=== PATIENT | male | born 1935 | race Caucasian/White ===

== ENCOUNTER 2020-06-02 13:35 | Emergency (ER) | payer MEDICARE, BC ==
--- NOTE | 2020-06-02 14:24 | EDM.PDOC ---
ED HPI GENERAL MEDICAL PROBLEM - General Chief Complaint: Respiratory Problem Stated Complaint: SINUS INFECTION COMPLAINT Time Seen by Provider: 06/02/20 14:24 - History of Present Illness INITIAL COMMENTS - FREE TEXT/NARRATIVE: 84-year-old male presents the emergency room with sinus complaints. Starting 4 days ago patient has developed intermittent bloody noses. On Sunday he had an episode where he was sneezing quite a bit and he had watery eyes. This seems to have resolved. However the patient still has some intermittent coughing intermittent sneezing and is secondary to stuff draining down the back of his throat. Patient denies any fevers or chills does not have any significant sinus pressure above his eyes or below his eyes. The patient currently is on Eliquis. And he notices most of his congestion is related to bloody noses. The patient takes his Eliquis twice daily as directed. He denies any fevers or chills. Past Medical History HEENT History: Reports: Cataract Cardiovascular History: Reports: Bypass, CAD, High Cholesterol, Hypertension, Pacemaker, Stents Social & Family History - Tobacco Use Tobacco Use Status *Q: Former Tobacco User Used Tobacco, but Quit: Yes Month/Year Tobacco Last Used: ED ROS GENERAL - Review of Systems Review Of Systems: See Below Constitutional: Reports: No Symptoms HEENT: Reports: Nosebleed, Rhinitis, Sinus Problem Respiratory: Reports: Other (General cough or sneeze not associated with fevers probably triggered by postnasal drip) Cardiovascular: Reports: No Symptoms Endocrine: Reports: No Symptoms GI/Abdominal: Reports: No Symptoms : Reports: No Symptoms Musculoskeletal: Reports: No Symptoms Skin: Reports: No Symptoms Neurological: Reports: No Symptoms ED EXAM, GENERAL - Physical Exam Exam: See Below Exam Limited By: No Limitations General Appearance: Alert, No Apparent Distress Ears: Normal External Exam, Normal Canal, Hearing Grossly Normal, Normal TMs Nose: Normal Inspection, Other (Dried blood mostly on the right over the nasal septum minimal blood elsewhere none noted on the left. Sinus palpation is unrevealing no discomfort noted with percussion over the maxillary or frontal sinuses bilaterally) Throat/Mouth: Normal Inspection, Normal Lips, Normal Teeth, Normal Gums, Normal Oropharynx, Normal Voice, No Airway Compromise Head: Atraumatic, Normocephalic. No: Facial Swelling, Facial Tenderness, Sinus Tenderness Neck: Normal Inspection, Supple, Non-Tender, Full Range of Motion. No: Lymphadenopathy (L), Lymphadenopathy (R) Respiratory/Chest: No Respiratory Distress, Lungs Clear, Normal Breath Sounds Cardiovascular: Normal Peripheral Pulses, Regular Rate, Rhythm, No Edema GI/Abdominal: Normal Bowel Sounds, Soft, Non-Tender Back Exam: Normal Inspection. No: CVA Tenderness (L), CVA Tenderness (R) Course - Vital Signs Last Recorded V/S: Last Vital Signs Temp 37.1 C 06/02/20 14:00 Pulse 60 06/02/20 14:00 Resp 18 06/02/20 14:00 BP 119/44 L 06/02/20 14:00 Pulse Ox 92 L 06/02/20 14:00 - Re-Assessments/Exams Free Text/Narrative Re-Assessment/Exam: 06/02/20 14:47 With discussion from the patient I am concerned that maybe he has a little bit of allergic rhinitis and this in combination with extremely dry air is causing some intermittent mild epistaxis aggravated by his Eliquis therapy. At this point I have recommended he start Claritin, or loratadine 10 mg a day. Discussed sinus treatment such as a coolmist humidifier or boiling water or getting into a more humid environment. Discussed acute management for nosebleeds. The patient is willing to try these modalities and will return to the emergency room with any questions or problems based on his sinus exam I do not feel he has an infectious process or is in any need of antibiotics at this point. Departure - Departure Time of Disposition: 14:48 Disposition: Home, Self-Care 01 Clinical Impression: Allergic rhinitis, Epistaxis - Discharge Information Referrals: Ranjith Noland PA-C [Primary Care Provider] - Forms: ED Department Discharge Additional Instructions: Return to the emergency room with any questions problems or worsening symptoms. If the nosebleeds return squeezer knee nose as we discussed and as we demonstrated at first blow all the bloody material and clots out of your nose. And hold then firm pressure, it should be uncomfortable, and to keep this pressure in place for 15 minutes. If this does not alleviate the nosebleeds return to the emergency room. Start loratadine, or Claritin, 10 mg daily. Use a coolmist humidifier or boil water to get some steam to help moisturize the area in your house. Use K-Y jelly under your nose as we did in the emergency room every couple hours while you are awake. Follow-up in the clinic on Sunday for recheck. Sepsis Event Note (ED) - Evaluation Sepsis Screening Result: No Definite Risk - Focused Exam Vital Signs: Vital Signs Temp Pulse Resp BP Pulse Ox 06/02/20 14:00 37.1 C 60 18 119/44 L 92 L
== END 2020-06-02 15:02 | disposition home or self-care (01) ==
LOC: JD.ED 13:35
DX: R04.0 Epistaxis (principal); J30.9 Allergic rhinitis, unspecified; I25.10 Atherosclerotic heart disease of native coronary artery without angina pectoris; I10 Essential (primary) hypertension; Z87.891 Personal history of nicotine dependence; Z95.1 Presence of aortocoronary bypass graft; Z95.5 Presence of coronary angioplasty implant and graft
CPT/HCPCS: 99282; 99283

== ENCOUNTER 2020-09-17 10:36 | Emergency (ER) | payer MEDICARE, BC ==
--- NOTE | 2020-09-17 10:53 | EDM.PDOC ---
ED HPI GENERAL MEDICAL PROBLEM - General Chief Complaint: ENT Problem Stated Complaint: NOSE BLEED SINCE 7AM Time Seen by Provider: 09/17/20 10:48 Source of Information: Reports: Patient History Limitations: Reports: No Limitations - History of Present Illness INITIAL COMMENTS - FREE TEXT/NARRATIVE: 84-year-old male presents to the ED with persistent nosebleed coming from the r ight side of the nares primarily. He states it started about 0700 hrs. shortly after getting up for the day. No known nasal trauma. Of note the patient is on Eliquis and baby aspirin daily. States with direct pressure he can get it to slow down but he could never get it to stop. Otherwise does not feel too bad in terms of being lightheaded or dizzy. Blood is running down his throat and has b een spitting up blood. Onset: Today, Sudden Onset Date: 09/17/20 Onset Time: 07:00 Duration: Hour(s):, Constant Location: Reports: Face (Right nasal hemorrhage) Quality: Reports: Other (Persistent bleeding right naris) Severity: Moderate Improves with: Reports: Other (Direct pressure helps a little bit.) Worsens with: Reports: None Context: Reports: Other (Continuous occurrence this morning.). Denies: Activity, Exercise, Lifting, Sick Contact, Trauma Associated Symptoms: Reports: No Other Symptoms. 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) (Only his prescribed medications.) - Related Data Allergies Allergy/AdvReac Type Severity Reaction Status Date / Time No Known Allergies Allergy Verified 09/17/20 10:42 Home Meds: Home Meds Apixaban [Eliquis] 5 mg PO BID 09/17/20 [History] Furosemide [Lasix] 40 mg PO DAILY 09/17/20 [History] Insulin Aspart [NovoLOG] 0 unit SQ ASDIRECTED PRN 09/17/20 [History] Insulin Degludec [Tresiba] 30 unit SQ DAILY 09/17/20 [History] Losartan [Cozaar] 12.5 mg PO DAILY 09/17/20 [History] Simvastatin 40 mg PO BEDTIME 09/17/20 [History] carvediloL [Carvedilol] 25 mg PO BID 09/17/20 [History] Past Medical History HEENT History: Reports: Cataract Cardiovascular History: Reports: Bypass, CAD, High Cholesterol, Hypertension, Pacemaker, Stents Respiratory History: Reports: COPD Musculoskeletal History: Reports: Back Pain, Chronic (Mild.), Osteoarthritis Social & Family History - Living Situation & Occupation Living situation: Reports: , with Spouse Occupation: Retired ED ROS ENT - Review of Systems Review Of Systems: See Below Constitutional: Reports: Fatigue, Decreased Appetite. Denies: Fever, Chills, Malaise, Weakness, Weight Loss HEENT: Reports: Glasses, Nosebleed (Right sided nosebleed) Respiratory: Reports: Shortness of Breath, Cough. Denies: Wheezing, Pleuritic Chest Pain, Sputum, Hemoptysis Cardiovascular: Reports: Blood Pressure Problem. Denies: Chest Pain (Nonproductive), Claudication, Dyspnea on Exertion, Edema, Lightheadedness, Palpitations Endocrine: Reports: No Symptoms GI/Abdominal: Reports: No Symptoms : Reports: Frequency, Other Musculoskeletal: Reports: Back Pain (Teary at x2-3), Joint Pain (Sips shoulders and neck at times) Skin: Reports: Bruising (. This is easily as he is on Eliquis and aspirin.) Neurological: Reports: No Symptoms Psychiatric: Reports: No Symptoms Hematologic/Lymphatic: Reports: No Symptoms Immunologic: Reports: No Symptoms ED EXAM, ENT - Physical Exam Exam: See Below Exam Limited By: No Limitations General Appearance: Alert, WD/WN, No Apparent Distress, Other Eye Exam: Bilateral Eye: Normal Inspection, PERRL Nose: Active Bleeding (Right nares) Mouth/Throat: Other (Is a trail of blood draining down the posterior gutter) Head: Atraumatic ( of the oropharynx on the right side), Normocephalic Neck: Normal Inspection, Supple, Non-Tender, Full Range of Motion. No: Lymphadenopathy (L), Lymphadenopathy (R) Respiratory/Chest: No Respiratory Distress, Lungs Clear, No Accessory Muscle Use Cardiovascular: Normal Peripheral Pulses, Regular Rate, Rhythm, No Edema, No Gallop, No Murmur, No Rub Neurological: Alert, Oriented, CN II-XII Intact, Normal Cognition Psychiatric: Normal Affect, Normal Mood Skin: Warm, Dry, Intact, Normal Color, No Rash Course - Vital Signs Last Recorded V/S: Last Vital Signs Temp 36.4 C 09/17/20 10:40 Pulse 60 09/17/20 10:40 Resp 18 09/17/20 10:40 BP 144/65 H 09/17/20 10:40 Pulse Ox 97 09/17/20 10:40 - Orders/Labs/Meds Meds: Medications Discontinued Medications Generic Name Dose Route Start Last Admin Trade Name Betsy PRN Reason Stop Dose Admin Cocaine HCl 4 ml 09/17/20 11:00 09/17/20 11:12 Cocaine Hcl TOP 09/17/20 11:01 4 ml ONETIME ONE Administration Lidocaine/Epinephrine 20 ml 09/17/20 11:15 09/17/20 11:14 Xylocaine 1% With Epinephrine 1:100,000 INJECT 09/17/20 11:16 10 ml ONETIME ONE Administration Oxymetazoline HCl 15 ml 09/17/20 10:59 09/17/20 11:16 Nasal Decongestant [place] EVA 09/17/20 11:00 15 ml ONETIME ONE Administration - Radiology Interpretation Free Text/Narrative:: 84-year-old male presents to the ED with aggressive bleeding from his right naris since 0700 hrs. this morning. Of note the patient is on Eliquis and aspirin. On examination there is blood filling both anterior naris plus running down the posterior right oropharynx. Nose clamp was done very little to bring the bleeding under control. Plan will pack the right nares with cocaine, Afrin, lidocaine with epinephrine combination in the hopes of bringing the bleeding under control. - Re-Assessments/Exams Free Text/Narrative Re-Assessment/Exam: 09/17/20 11:18 naris was packed with a combination of half-inch tube gauze soaked in Afrin gel and cocaine 4 mils and lidocaine 1% with epinephrine. Packing will be left in place for the next 20 to 30 minutes to see if we can gain control of the bleeding. 09/17/20 12:14 I remove the cocaine Afrin back from the right naris and he right away had significant persistent bleeding from the right naris. The left naris had cleaned up indicating blood was traversing through the left naris from the posterior aspect of the right nares. I therefore packed the right naris with Vaseline soaked tube gauze and will reassess him in 10 to 15 minutes. 09/17/20 12:31 view he has a little bit of a blood clot in the posterior oropharynx on the right side. The packing is starting to become soaked with blood but no bleeding is occurring from the right naris and the left naris has no blood within it now. 09/17/20 13:01 patient still has a bit of a blood clot in his right posterior oropharynx. The nose however has for the most part stopped bleeding. Slight oozing perhaps. Vaseline impregnated tube gauze is to remain in the nose for the next 48 hours. He will return to the ED on Sunday around noon to have it removed. Departure - Departure Time of Disposition: 13: Disposition: Home, Self-Care 01 Condition: Fair Clinical Impression: Right-sided epistaxis - Discharge Information *PRESCRIPTION DRUG MONITORING PROGRAM REVIEWED*: Not Applicable *COPY OF PRESCRIPTION DRUG MONITORING REPORT IN PATIENT [place]: Not Applicable Instructions: Nosebleed, [id number] Referrals: Ranjith Noland PA-C [Primary Care Provider] - Forms: ED Department Discharge Additional Instructions: Evaluation in the emergency room this morning in regards to a persistent right- sided nosebleed since 0700 hrs. this morning. On evaluation I could not identify a single source of bleeding. Bleeding is coming from the anterior nasal septum in multiple locations. This is of course being aggravated by being on aspirin and Eliquis. Packing the naris with cocaine, Afrin and lidocaine 1% with epinephrine failed to bring the bleeding under control. The nose was therefore packed with Vaseline tube gauze which is to remain in place for the next 48 hours. Please return to the ED on Sunday at between noon and 1:00 to have the packing removed. Usually once the bleeding comes under control we are able to use Polysporin ointment with the aid of a Q-tip into the nose every night at bedtime for the next week in combination with humidifier in your sleeping quarters to prevent further bleeding. Suggest stopping your aspirin for 1 week and then resuming it. Continue the Eliquis as prescribed. Of course return to the ED if noticed bleeding worsens. Sepsis Event Note (ED) - Focused Exam Vital Signs: Vital Signs Temp Pulse Resp BP Pulse Ox 09/17/20 10:40 36.4 C 60 18 144/65 H 97
[2020-09-17] MEDS ORDERED: Oxymetazoline 0.05% Nasal Spray 30 ML Bottle NAS ONE (10:59)
[2020-09-17] MEDS ORDERED: Lidocaine 1% with EPINEPHrine 1:100,000 20 ML MDV INJECT ONE (11:00)
[2020-09-17] MEDS ORDERED: Lidocaine 1% with EPINEPHrine 1:100,000 10 ML MDV INJECT ONE (11:15)
== END 2020-09-17 13:20 | disposition home or self-care (01) ==
LOC: JD.ED 10:36
DX: R04.0 Epistaxis (principal); E78.00 Pure hypercholesterolemia, unspecified; I10 Essential (primary) hypertension; I25.10 Atherosclerotic heart disease of native coronary artery without angina pectoris; J44.9 Chronic obstructive pulmonary disease, unspecified; M19.90 Unspecified osteoarthritis, unspecified site; Z79.899 Other long term (current) drug therapy; Z79.01 Long term (current) use of anticoagulants; Z79.82 Long term (current) use of aspirin
CPT/HCPCS: 30905; 99283; A9270; 30903; 99282

== ENCOUNTER 2020-09-19 12:17 | Emergency (ER) | payer MEDICARE, BC | END 2020-09-19 12:50 | LOC: JD.ED 12:17 | DX: Z48.00 Encounter for change or removal of nonsurgical wound dressing (principal) | CPT/HCPCS: 99281 ==

== ENCOUNTER 2021-02-25 22:21 | Emergency (ER) | payer MEDICARE, BC ==
[2021-02-25] MEDS ORDERED: Oxymetazoline 0.05% Nasal Spray 30 ML Bottle NAS ONE (22:39)
[2021-02-25] MEDS ORDERED: Lidocaine 1% with EPINEPHrine 1:100,000 10 ML MDV INJECT ONE (22:39)
--- NOTE | 2021-02-25 22:56 | EDM.PDOC ---
ED HPI GENERAL MEDICAL PROBLEM - General Chief Complaint: ENT Problem Stated Complaint: NOSE BLEED Time Seen by Provider: 02/25/21 22:34 Source of Information: Reports: Patient History Limitations: Reports: No Limitations - History of Present Illness INITIAL COMMENTS - FREE TEXT/NARRATIVE: A 5-year-old male presents the emergency department with complaints of bleeding from the left nares. Patient states this started approximately 2 hours ago. He states it started spontaneously. Of note, the patient does take Eliquis daily. He has been applying direct pressure however has not been able to get it to stop bleeding. He denies being lightheaded or dizzy. Blood is running down his throat and he has been spitting up some blood as well. - Related Data Allergies Allergy/AdvReac Type Severity Reaction Status Date / Time fluticasone [From Flonase] Allergy Severe Cannot Verified 02/25/21 22:31 Remember vitamin b12 Allergy Severe Cannot Uncoded 02/25/21 22:31 Remember Home Meds: Home Meds Apixaban [Eliquis] 5 mg PO BID 09/17/20 [History] Furosemide [Lasix] 40 mg PO DAILY 09/17/20 [History] Insulin Aspart [NovoLOG] 0 unit SQ ASDIRECTED PRN 09/17/20 [History] Insulin Degludec [Tresiba] 30 unit SQ DAILY 09/17/20 [History] Losartan [Cozaar] 12.5 mg PO DAILY 09/17/20 [History] Simvastatin 40 mg PO BEDTIME 09/17/20 [History] carvediloL [Carvedilol] 25 mg PO BID 09/17/20 [History] Past Medical History HEENT History: Reports: Cataract Other HEENT History: wears eyeglasses, epistaxis. 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, Type I - Infectious Disease History Infectious Disease History: Reports: Measles, Mumps - Past Surgical History HEENT Surgical History: Reports: Cataract Surgery Cardiovascular Surgical History: Reports: Carotid Endarterectomy, Carotid Stents, Coronary Artery Bypass GI Surgical History: Reports: Appendectomy Social & Family History - Tobacco Use Tobacco Use Status *Q: Never Tobacco User Second Hand Smoke Exposure: No - Caffeine Use Caffeine Use: Reports: Coffee - Recreational Drug Use Recreational Drug Use: No - Living Situation & Occupation Living situation: Reports: , with Spouse Occupation: Retired ED ROS ENT - Review of Systems Review Of Systems: Comprehensive ROS is negative, except as noted in HPI. ED EXAM, ENT - Physical Exam Exam: See Below Exam Limited By: No Limitations General Appearance: Alert, WD/WN, Mild Distress Ears: Normal External Exam, Hearing Grossly Normal Nose: Active Bleeding (From left nares) Mouth/Throat: Normal Gums, Normal Lips, Normal Oropharynx (Bleeding noted down the back of the left side of the oropharynx), Normal Teeth Head: Atraumatic Neck: Normal Inspection, Supple Respiratory/Chest: No Respiratory Distress, No Accessory Muscle Use Cardiovascular: Normal Peripheral Pulses, Regular Rate, Rhythm GI/Abdominal: No Distention (Male) Exam: Deferred Rectal (Males) Exam: Deferred Back: Normal Inspection Extremities: Normal Inspection Neurological: Alert, Oriented, Normal Cognition Psychiatric: Normal Affect, Normal Mood Skin: Warm, Dry, Intact, Normal Color, No Rash Lymphatic: No Adenopathy Course - Vital Signs Text/Narrative:: As stated above 85-year-old male who presents with nosebleed from the left naris. Bleeding has been fairly aggressive for the past 2 hours. Patient is able to get it to slow down with some direct pressure however is not able to get it to stop. On exam there is blood filling the anterior nares plus running down the posterior left oropharynx. Plan will be to pack the left nares with Afrin, lidocaine with epi, and TXA combination in hopes of getting the bleeding controlled. We will allow this packing to stay in place for approximately 20 minutes. Last Recorded V/S: Last Vital Signs Temp 98 F 02/25/21 22:29 Pulse 81 02/25/21 22:29 Resp 16 02/25/21 22:29 BP 141/59 H 02/25/21 22:29 Pulse Ox 94 L 02/25/21 22:29 - Orders/Labs/Meds Meds: Medications Discontinued Medications Generic Name Dose Route Start Last Admin Trade Name Alejandroq PRN Reason Stop Dose Admin Lidocaine/Epinephrine 2 ml 02/25/21 22:39 02/25/21 23:04 Lidocaine 1% With Epinephrine 1:100,000 10 Ml Mdv INJECT 02/25/21 22:40 2 ml ONETIME ONE Administration Oxymetazoline HCl 2 ml 02/25/21 22:39 02/25/21 23:03 Oxymetazoline 0.05% Nasal [place] 30 Ml Bottle EVA 02/25/21 22:40 2 ml ONETIME ONE Administration Tranexamic Acid 1,000 mg 02/25/21 22:39 02/25/21 23:03 Tranexamic Acid 1,000 Mg/10 Ml Amp IVPUSH 02/25/21 22:40 1,000 mg ONETIME ONE Administration - Re-Assessments/Exams Free Text/Narrative Re-Assessment/Exam: 02/25/21 23:39 Nasal packing was removed from the left naris. I was able to view an area in the posterior nares along the medial wall a small area approximately the size of a pen tip that was still just slightly oozing blood. I did cauterize the area with a stick of silver nitrate and this did seem to have made the bleeding stop. Patient states that he no longer feels like any blood is draining down the back of his throat so the treatment appears to be successful. Patient will be discharged home with no further orders. He will be able to continue taking all his previously prescribed medications. 02/25/21 23:41 Departure - Departure Time of Disposition: 23:42 Disposition: Home, Self-Care 01 Condition: Good Clinical Impression: Left-sided epistaxis - Discharge Information Instructions: Nosebleed, [id number] Referrals: Ranjith Noland PA-C [Primary Care Provider] - Forms: ED Department Discharge Additional Instructions: You were seen in the emergency department with a nosebleed from your left nares. A nasal packing was placed with a combination of medications to stop the bleeding and this did seem to help substantially however there was still a small area in the posterior portion of your nose that was still oozing. I was able to cauterize this area and no further bleeding was noted. Continue to take all your previously prescribed medications. Should the bleeding start again and you are unable to stop it do not hesitate returning to the emergency department. Do not blow your nose for the next 24 hours. Sepsis Event Note (ED) - Evaluation Sepsis Screening Result: No Definite Risk - Focused Exam Vital Signs: Vital Signs Temp Pulse Resp BP Pulse Ox 02/25/21 22:29 98 F 81 16 141/59 H 94 L
== END 2021-02-25 23:52 | disposition home or self-care (01) ==
LOC: JD.ED 22:21
DX: R04.0 Epistaxis (principal); I25.10 Atherosclerotic heart disease of native coronary artery without angina pectoris; E78.00 Pure hypercholesterolemia, unspecified; I10 Essential (primary) hypertension; E10.9 Type 1 diabetes mellitus without complications; J44.9 Chronic obstructive pulmonary disease, unspecified; Z79.01 Long term (current) use of anticoagulants; Z95.0 Presence of cardiac pacemaker; Z79.899 Other long term (current) drug therapy; Z91.09 Other allergy status, other than to drugs and biological substances; Z88.8 Allergy status to other drugs, medicaments and biological substances
CPT/HCPCS: 30901; 99283; A9270; 99282

== ENCOUNTER 2021-02-27 14:55 | Emergency (ER) | payer MEDICARE, BC ==
[2021-02-27] MEDS ORDERED: Lidocaine 1% with EPINEPHrine 1:100,000 10 ML MDV INJECT ONE (15:26)
[2021-02-27] MEDS ORDERED: Oxymetazoline 0.05% Nasal Spray 30 ML Bottle NAS ONE (15:26)
--- NOTE | 2021-02-27 15:47 | EDM.PDOC ---
ED HPI GENERAL MEDICAL PROBLEM - General Chief Complaint: ENT Problem Stated Complaint: NOSE BLEED Time Seen by Provider: 02/27/21 15:17 Source of Information: Reports: Patient History Limitations: Reports: No Limitations - History of Present Illness INITIAL COMMENTS - FREE TEXT/NARRATIVE: 85-year-old male presents the emergency department today with complaints of bleeding from the right nares. Patient states that bleeding started this morning at around 9 AM and has been oozing on and off throughout the day. He denies picking or bumping his nose or any trauma. Of note, the patient takes Eliquis daily and a baby aspirin every other day and has been seen in the emergency department with issues of nosebleeds. He denies any dizziness associated with the bleeding. - Related Data Allergies Allergy/AdvReac Type Severity Reaction Status Date / Time fluticasone [From Flonase] Allergy Severe Cannot Verified 02/27/21 15:20 Remember vitamin b12 Allergy Severe Cannot Uncoded 02/27/21 15:20 Remember Home Meds: Home Meds Apixaban [Eliquis] 5 mg PO BID 09/17/20 [History] Furosemide [Lasix] 40 mg PO DAILY 09/17/20 [History] Insulin Aspart [NovoLOG] 0 unit SQ ASDIRECTED PRN 09/17/20 [History] Insulin Degludec [Tresiba] 30 unit SQ DAILY 09/17/20 [History] Losartan [Cozaar] 12.5 mg PO DAILY 09/17/20 [History] Simvastatin 40 mg PO BEDTIME 09/17/20 [History] carvediloL [Carvedilol] 25 mg PO BID 09/17/20 [History] Aspirin 81 mg PO Q48H 02/27/21 [History] Benzonatate [Tessalon Perle] 100 mg PO TID PRN #21 capsule 02/27/21 [Rx] Past Medical History HEENT History: Reports: Cataract Other HEENT History: wears eyeglasses, epistaxis. 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, Type I - Infectious Disease History Infectious Disease History: Reports: Measles, Mumps - Past Surgical History HEENT Surgical History: Reports: Cataract Surgery Cardiovascular Surgical History: Reports: Carotid Endarterectomy, Carotid Stents, Coronary Artery Bypass GI Surgical History: Reports: Appendectomy Social & Family History - Family History Family Medical History: No Pertinent Family History - Tobacco Use Tobacco Use Status *Q: Never Tobacco User Second Hand Smoke Exposure: No - Caffeine Use Caffeine Use: Reports: Coffee - Recreational Drug Use Recreational Drug Use: No - Living Situation & Occupation Living situation: Reports: , with Spouse Occupation: Retired ED ROS ENT - Review of Systems Review Of Systems: Comprehensive ROS is negative, except as noted in HPI. ED EXAM, ENT - Physical Exam Exam: See Below Exam Limited By: No Limitations General Appearance: Alert, WD/WN, No Apparent Distress Ears: Normal External Exam, Hearing Grossly Normal Nose: Active Bleeding, Dried Blood Mouth/Throat: Normal Inspection, Normal Oropharynx Head: Atraumatic Neck: Normal Inspection, Supple Respiratory/Chest: No Respiratory Distress, No Accessory Muscle Use Cardiovascular: Normal Peripheral Pulses, Regular Rate, Rhythm GI/Abdominal: No Distention (Male) Exam: Deferred Rectal (Males) Exam: Deferred Back: Normal Inspection Extremities: Normal Inspection Neurological: Alert, Oriented, Normal Cognition Psychiatric: Normal Affect, Normal Mood Skin: Warm, Dry, Intact, Normal Color, No Rash Lymphatic: No Adenopathy Course - Vital Signs Text/Narrative:: As stated above patient with bleeding noted from the right naris. At the time of my assessment bleeding was controlled. Upon evaluation, there is a fair amount of clots noted in the right naris. I did have the patient blow his nose to get the clots out. And upon further evaluation there is not 1 area but numerous areas of oozing noted along the anterior septum. I have ordered Afrin nasal spray, lidocaine with epi, and TXA. Will mix 2 mL of each of these medications. I have saturated a 2 x 2 gauze and packed the right nares with this. Will allow approximately 30 minutes to take the gauze out and reevaluate the area. Would like to forego cautery if at all possible. Last Recorded V/S: Last Vital Signs Temp 97.9 F 02/27/21 15:00 Pulse 63 02/27/21 15:00 Resp 20 02/27/21 15:00 BP 143/60 H 02/27/21 15:00 Pulse Ox 90 L 02/27/21 15:00 - Orders/Labs/Meds Meds: Medications Discontinued Medications Generic Name Dose Route Start Last Admin Trade Name Betsy PRN Reason Stop Dose Admin Lidocaine/Epinephrine 2 ml 02/27/21 15:26 02/27/21 15:34 Lidocaine 1% With Epinephrine 1:100,000 10 Ml Mdv INJECT 02/27/21 15:27 2 ml ONETIME ONE Administration Oxymetazoline HCl 2 ml 02/27/21 15:26 02/27/21 15:34 Oxymetazoline 0.05% Nasal [place] 30 Ml Bottle EVA 02/27/21 15:27 2 ml ONETIME ONE Administration Tranexamic Acid 1,000 mg 02/27/21 15:26 02/27/21 15:34 Tranexamic Acid 1,000 Mg/10 Ml Amp IVPUSH 02/27/21 15:27 1,000 mg ONETIME ONE Administration - Re-Assessments/Exams Free Text/Narrative Re-Assessment/Exam: 02/27/21 16:12 After taking the packing out of the right nares, I was able to visualize 2 areas on the anterior septal wall about the size of a pen tip that were the source of bleeding. These 2 areas were cauterized and the bleeding did stop. I discussed with the patient that he should start applying Vaseline to both the right and left nares twice daily. The patient is also complaining of a persistent cough that he has had for the past 2 weeks due to postnasal drip and was requesting something to suppress it at nighttime as he states he is not getting much sleep. I will give him a prescription for tessalon pearls. Discussed the case with Dr. Betancourt and he agrees. Departure - Departure Time of Disposition: 16:17 Disposition: Home, Self-Care 01 Condition: Good Clinical Impression: Right-sided epistaxis - Discharge Information Prescriptions: Benzonatate [Tessalon Perle] 100 mg PO TID PRN #21 capsule PRN Reason: Cough Referrals: Ranjith Noland PA-C [Primary Care Provider] - Forms: ED Department Discharge Additional Instructions: You were seen in the emergency department with a nosebleed from your right nares. Nose was packed with a combination of medications soaked in gauze. This did seem to help that losing from the right nostril however there were 2 areas that were about the size of a pen tip that needed to be cauterized. Once cauterized, the bleeding did stop. Do not blow your nose. Recommend that you s tart putting Vaseline in the nose twice daily morning and night. You also stated that you have postnasal drip which is causing you to cough and not get much sleep at nighttime. I have sent a prescription to [facility] for a medication called Zo Brown. You may take 1 tab up to 3 times daily for your cough. Hopefully this should help you to get some rest. Should your condition worsen or change, do not hesitate returning to the emergency department. Sepsis Event Note (ED) - Evaluation Sepsis Screening Result: No Definite Risk - Focused Exam Vital Signs: Vital Signs Temp Pulse Resp BP Pulse Ox 02/27/21 15:00 97.9 F 63 20 143/60 H 90 L
[2021-02-27] MEDS ORDERED: Benzonatate 100 MG Cap PO ONE (16:27)
== END 2021-02-27 16:45 | disposition home or self-care (01) ==
LOC: JD.ED 14:55
DX: R04.0 Epistaxis (principal); I25.810 Atherosclerosis of coronary artery bypass graft(s) without angina pectoris; E78.00 Pure hypercholesterolemia, unspecified; I10 Essential (primary) hypertension; J44.9 Chronic obstructive pulmonary disease, unspecified; M19.90 Unspecified osteoarthritis, unspecified site; E10.9 Type 1 diabetes mellitus without complications; Z88.8 Allergy status to other drugs, medicaments and biological substances; Z79.01 Long term (current) use of anticoagulants; Z79.82 Long term (current) use of aspirin; Z79.899 Other long term (current) drug therapy
CPT/HCPCS: 96374; 99283; A9270; 30901

== ENCOUNTER 2021-02-28 14:10 | Emergency (ER) | payer MEDICARE, BC ==
[2021-02-28] MEDS ORDERED: Oxymetazoline 0.05% Nasal Spray 30 ML Bottle NAS ONE (15:06)
--- NOTE | 2021-02-28 16:22 | EDM.PDOC ---
ED HPI GENERAL MEDICAL PROBLEM - General Chief Complaint: ENT Problem Stated Complaint: NOSE BLEED Time Seen by Provider: 02/28/21 14:56 Source of Information: Reports: Patient, RN Notes Reviewed - History of Present Illness INITIAL COMMENTS - FREE TEXT/NARRATIVE: 85 yr old male has been having difficulty with nose bleeds for about the past 4 days, this is his 3rd visit in the last 3 or 4 days. He did have a couple of areas cauterized R nare yesterday, see that and other records for details. This morning he started having light oozing R nare which has become worse this afternoon. He is on eliquis and aspirin "for my heart". - Related Data Allergies Allergy/AdvReac Type Severity Reaction Status Date / Time No Known Allergies Allergy Verified 02/28/21 14:34 Home Meds: Home Meds Apixaban [Eliquis] 5 mg PO BID 09/17/20 [History] Furosemide [Lasix] 40 mg PO DAILY 09/17/20 [History] Insulin Aspart [NovoLOG] 0 unit SQ ASDIRECTED PRN 09/17/20 [History] Insulin Degludec [Tresiba] 30 unit SQ DAILY 09/17/20 [History] Losartan [Cozaar] 12.5 mg PO DAILY 09/17/20 [History] Simvastatin 40 mg PO BEDTIME 09/17/20 [History] carvediloL [Carvedilol] 25 mg PO BID 09/17/20 [History] Aspirin 81 mg PO Q48H 02/27/21 [History] Benzonatate [Tessalon Perle] 100 mg PO TID PRN #21 capsule 02/27/21 [Rx] Benzonatate [Tessalon Perle] 100 mg PO TID PRN #21 capsule 02/27/21 [Rx] Past Medical History HEENT History: Reports: Cataract Other HEENT History: wears eyeglasses, epistaxis. 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, Type I - Infectious Disease History Infectious Disease History: Reports: Measles, Mumps - Past Surgical History HEENT Surgical History: Reports: Cataract Surgery Cardiovascular Surgical History: Reports: Carotid Endarterectomy, Carotid Stents, Coronary Artery Bypass GI Surgical History: Reports: Appendectomy Social & Family History - Family History Family Medical History: No Pertinent Family History - Tobacco Use Tobacco Use Status *Q: Never Tobacco User - Caffeine Use Caffeine Use: Reports: Coffee - Recreational Drug Use Recreational Drug Use: No - Living Situation & Occupation Living situation: Reports: , with Spouse Occupation: Retired ED ROS ENT - Review of Systems Review Of Systems: See Below Constitutional: Reports: No Symptoms HEENT: Reports: Nosebleed Respiratory: Reports: Cough (chronic). Denies: Shortness of Breath Cardiovascular: Denies: Chest Pain GI/Abdominal: Denies: Abdominal Pain, Nausea, Vomiting Musculoskeletal: Reports: No Symptoms Skin: Reports: No Symptoms Neurological: Reports: No Symptoms ED EXAM, ENT - Physical Exam Exam: See Below General Appearance: Alert, No Apparent Distress Eye Exam: Bilateral Eye: PERRL Nose: Other (slight oozing of blood R mid nasal septum) Neck: Supple Respiratory/Chest: No Respiratory Distress, Lungs Clear, Normal Breath Sounds Cardiovascular: Regular Rate, Rhythm GI/Abdominal: Soft, Non-Tender Extremities: Normal Inspection, Normal Range of Motion Neurological: Alert, Oriented, No Motor/Sensory Deficits Skin: Warm, Dry, Normal Color ED ENT PROCEDURES - Epistaxis Procedure Indication: Epistaxis Site of bleeding: Right Nare Topical Meds: Topical Cocaine Chemical cautery: Silver Nitrate Topical Course - Vital Signs Last Recorded V/S: Last Vital Signs Temp 98.2 F 02/28/21 14:29 Pulse 65 02/28/21 14:29 Resp 16 02/28/21 14:29 BP 105/65 02/28/21 14:29 Pulse Ox 93 L 02/28/21 14:29 - Orders/Labs/Meds Meds: Medications Discontinued Medications Generic Name Dose Route Start Last Admin Trade Name Freq PRN Reason Stop Dose Admin Cocaine HCl 4 ml 02/28/21 15:06 02/28/21 15:13 Cocaine 4 Ml Bottle TOP 02/28/21 15:07 4 ml ONETIME ONE Administration Oxymetazoline HCl 1 ml 02/28/21 15:06 02/28/21 15:13 Oxymetazoline 0.05% Nasal [place] 30 Ml Bottle EVA 02/28/21 15:07 1 ml ONETIME ONE Administration - Re-Assessments/Exams Free Text/Narrative Re-Assessment/Exam: 02/28/21 17:25 initially hard to visualize where the slight oozing was coming from. After the 2nd application of cotton ball soaked with cocaine soln was able to localize the site of bleeding R mid septum with no further bleeding. Departure - Departure Time of Disposition: 17:11 Disposition: Home, Self-Care 01 Condition: Fair Clinical Impression: Right-sided epistaxis - Discharge Information Instructions: Nosebleed, [id number] Referrals: Ranjith Noland PA-C [Primary Care Provider] - Forms: ED Department Discharge Additional Instructions: Try not to blow nose. This is going to take 4 to 5 days to heal. Vaseline to distal nose both side twice daily for moisturization. Stop the aspirin and eliquis for 2 days. Pressure to soft part of nose for any further bleeding. Follow up clinic as needed. Return to ED as needed. Sepsis Event Note (ED) - Evaluation Sepsis Screening Result: No Definite Risk - Focused Exam Vital Signs: Vital Signs Temp Pulse Resp BP Pulse Ox 02/28/21 14:29 98.2 F 65 16 105/65 93 L
== END 2021-02-28 17:40 | disposition home or self-care (01) ==
LOC: JD.ED 14:10
DX: R04.0 Epistaxis (principal); J44.9 Chronic obstructive pulmonary disease, unspecified; I25.10 Atherosclerotic heart disease of native coronary artery without angina pectoris; E78.00 Pure hypercholesterolemia, unspecified; I10 Essential (primary) hypertension; E10.9 Type 1 diabetes mellitus without complications; Z79.01 Long term (current) use of anticoagulants; Z79.4 Long term (current) use of insulin; Z79.899 Other long term (current) drug therapy; Z95.1 Presence of aortocoronary bypass graft; Z79.82 Long term (current) use of aspirin
CPT/HCPCS: 30901; 99283; A9270; C9046; 99282

== ENCOUNTER 2021-03-03 11:52 | Inpatient (IN) | payer MEDICARE, BC ==
[2021-03-03] MEDS ORDERED: cefTRIAXone 2 GM in Sodium Chloride 0.9% 100 ML IV ONE (12:58)
[2021-03-03] MEDS ORDERED: Albuterol/Ipratropium 3.0-0.5 MG/3 ML Neb Soln NEB ONE (13:37)
[2021-03-03] MEDS: Sodium Chloride 0.9% 10 ML Syringe FLUSH PRN (14:03)
--- NOTE | 2021-03-03 14:19 | CT ---
CT chest Technique: Multiple axial sections through the chest were obtained. Intravenous contrast was not utilized. Reconstructed coronal and axial sections were also obtained. Comparison: Prior chest x-ray of 03/02/21. Findings: Bichamber pacemaker is noted. Thoracic aorta shows atherosclerotic calcification. No aneurysm is seen. Prior sternotomy is noted with prior CABG. Heart is slightly enlarged. Small bilateral pleural effusions are noted. Visualized upper abdominal structures show diffuse calcifications within the pancreas. Pancreas is also atrophied. Patchy areas of increased density are seen within both lung bases. Upper lungs are clear. Several scattered nodular densities are seen within the lingula and right lung base which are hard to evaluate due to motion. Largest nodule appears to measure 6 mm. Mediastinum shows small lymph nodes which are within normal limits. Bone window settings were reviewed which show scattered degenerative change within the spine. No acute osseous abnormality is appreciated. Impression: 1. Small bilateral pleural effusions. 2. Diffuse increased density within both lung bases. These findings could represent diffuse pneumonia if patient has infectious symptoms. 3. Small nodules within the lingula and right lower lobe. These are nonspecific regarding etiology. Largest nodule measures about 6 mm. Follow-up noncontrast chest CT could be obtained in 9 months to further evaluate if clinically indicated. 4. Pacemaker is noted. Diagnostic code #3
--- NOTE | 2021-03-03 15:31 | EDM.PDOC ---
ED HPI GENERAL MEDICAL PROBLEM - General Chief Complaint: Cardiovascular Problem Stated Complaint: LETHARGIC/SWOLLEN Time Seen by Provider: 03/03/21 12:35 Source of Information: Reports: Patient, Family History Limitations: Reports: No Limitations - History of Present Illness INITIAL COMMENTS - FREE TEXT/NARRATIVE: The patient presents with his family for shortness of breath, productive cough, and swelling in his legs. He has been here a few times in the past couple of weeks for epistaxis. He also has been weak and not able to sleep. He has to sleep sitting up. He has been coughing up yellow/greenish sputum. He went to the clinic and had a CXR done a couple days ago and it did not show much. He has swelling in both legs. He was put on some lasix. 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 He does not think he had a fever or chills. Onset: Gradual Duration: Week(s): Severity: Moderate Improves with: Reports: None Worsens with: Reports: None Associated Symptoms: Reports: Cough, Shortness of Breath. Denies: Confusion, Chest Pain, Fever/Chills, Headaches, Nausea/Vomiting - Related Data Allergies Allergy/AdvReac Type Severity Reaction Status Date / Time No Known Allergies Allergy Verified 03/03/21 12:34 Home Meds: Home Meds Apixaban [Eliquis] 5 mg PO BID 09/17/20 [History] Furosemide [Lasix] 40 mg PO DAILY 09/17/20 [History] Insulin Aspart [NovoLOG] 0 unit SQ ASDIRECTED PRN 09/17/20 [History] Losartan [Cozaar] 12.5 mg PO DAILY 09/17/20 [History] Simvastatin 40 mg PO BEDTIME 09/17/20 [History] carvediloL [Carvedilol] 25 mg PO BID 09/17/20 [History] Aspirin 81 mg PO Q48H 02/27/21 [History] Furosemide 40 mg PO Q48H 03/03/21 [History] Furosemide [Lasix] 20 mg PO Q48H 03/03/21 [History] Insulin Detemir [Levemir Flextouch] 25 units SQ DAILY 03/03/21 [History] Potassium Chloride [Klor-Con 10] 0 mg PO DAILY 03/03/21 [History] Past Medical History HEENT History: Reports: Cataract Other HEENT History: wears eyeglasses, epistaxis. 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, Type I - Infectious Disease History Infectious Disease History: Reports: Measles, Mumps - Past Surgical History HEENT Surgical History: Reports: Cataract Surgery Cardiovascular Surgical History: Reports: Carotid Endarterectomy, Carotid Stents, Coronary Artery Bypass GI Surgical History: Reports: Appendectomy Social & Family History - Family History Family Medical History: No Pertinent Family History - Tobacco Use Tobacco Use Status *Q: Former Tobacco User Used Tobacco, but Quit: Yes Month/Year Tobacco Last Used: 30 years ago - Caffeine Use Caffeine Use: Reports: Coffee - Recreational Drug Use Recreational Drug Use: No - Living Situation & Occupation Living situation: Reports: , with Spouse Occupation: Retired ED ROS GENERAL - Review of Systems Review Of Systems: See Below Constitutional: Reports: No Symptoms HEENT: Reports: No Symptoms Respiratory: Reports: Shortness of Breath, Cough Cardiovascular: Reports: Edema. Denies: Chest Pain Endocrine: Reports: No Symptoms GI/Abdominal: Reports: No Symptoms : Reports: No Symptoms Musculoskeletal: Reports: No Symptoms Skin: Reports: No Symptoms ED EXAM, GENERAL - Physical Exam Exam: See Below Exam Limited By: No Limitations General Appearance: Alert, No Apparent Distress Ears: Normal External Exam Nose: Normal Inspection Head: Atraumatic, Normocephalic Neck: Normal Inspection Respiratory/Chest: Decreased Breath Sounds, Rhonchi Cardiovascular: Regular Rate, Rhythm, No Edema, No Murmur GI/Abdominal: Soft, Non-Tender, No Organomegaly, No Mass Back Exam: Normal Inspection Extremities: Pedal Edema #1 Interpretation EKG Date: 03/03/21 Time: 12:47 Rhythm: Other (Ventricular paced rhythm) Rate (Beats/Min): 60 Course - Vital Signs Last Recorded V/S: Last Vital Signs Temp 97.8 F 03/03/21 12:31 Pulse 63 03/03/21 12:31 Resp 20 03/03/21 12:31 BP 115/50 L 03/03/21 12:31 Pulse Ox 91 L 03/03/21 13:37 - Orders/Labs/Meds Orders: Active Orders 24 hr Category Date Time Status Cardiac Monitoring [RC] . DIRECTED Care 03/03/21 12:56 Active EKG 12 Lead [EKG Documentation Completion] [RC] STAT Care 03/03/21 12:42 Active Height and Weight [RC] DAILY Care 03/03/21 17:21 Active Intake and Output [RC] QSHIFT Care 03/03/21 17:21 Active Oxygen Therapy [RC] PRN Care 03/03/21 12:56 Active Oxygen Therapy [RC] PRN Care 03/03/21 17:21 Active Peripheral IV Care [RC] . DIRECTED Care 03/03/21 12:57 Active Pulse Oximetry [RC] CONTINUOUS Care 03/03/21 17:21 Active RT Aerosol Therapy [RC] ASDIRECTED Care 03/03/21 13:37 Active RT Aerosol Therapy [RC] ASDIRECTED Care 03/03/21 17:25 Active Up With Assistance [RC] ASDIRECTED Care 03/03/21 17:21 Active VTE/DVT Education [RC] PER UNIT ROUTINE Care 03/03/21 17:21 Active Vital Signs [RC] Q4H Care 03/03/21 17:21 Active PT Evaluation and Treatment [CONS] Routine Cons 03/03/21 17:21 Active Respiratory Care Assess and Treatment [CONS] Routine Cons 03/03/21 17:21 Active Heart Healthy Diet [DIET] Diet 03/03/21 Dinner Active BLOOD CULTURE [MREF] Routine Lab 03/03/21 13:20 Received BLOOD CULTURE [MREF] Stat Lab 03/03/21 13:15 Received CBC WITH AUTO DIFF [HEME] AM Lab 03/04/21 05:11 Ordered COMPREHENSIVE METABOLIC PN,CMP [CHEM] AM Lab 03/04/21 05:11 Ordered RESPIRATORY CULT [MREF] Stat Lab 03/03/21 16:37 Received Acetaminophen [TylenoL] Med 03/03/21 17:21 Active 650 mg PO Q4H PRN Albuterol/Ipratropium [DuoNeb 3.0-0.5 MG/3 ML] Med 03/03/21 18:00 Active 3 ml NEB Q4HRRT Dextromethorphan/guaiFENesin [Robitussin DM] Med 03/03/21 17:25 Active 5 ml PO Q4H PRN Doxycycline [Vibramycin] Med 03/03/21 21:00 Active 100 mg PO BID Ondansetron [Zofran] Med 03/03/21 17:21 Active 4 mg IV Q4H PRN Sodium Chloride 0.9% [Saline Flush] Med 03/03/21 12:56 Active 10 ml FLUSH ASDIRECTED PRN cefTRIAXone [Rocephin] 1 gm Med 03/04/21 16:00 Active Sodium Chloride 0.9% [Normal Saline] 100 ml IV Q24H Peripheral IV Insertion Adult [OM.PC] Stat Oth 03/03/21 12:56 Ordered VTE Pharmacological Contraindications [AST] Per Unit Oth 03/03/21 17:21 Ordered Routine Resuscitation Status Routine Resus Stat 03/03/21 17:21 Ordered Medication Orders Acetaminophen (Acetaminophen 325 Mg Tab) 650 mg PO Q4H PRN PRN Reason: Pain (Mild 1-3)/fever Albuterol/Ipratropium (Albuterol/Ipratropium 3.0-0.5 Mg/3 Ml Neb Soln) 3 ml NEB Q4HRRT AIDA Doxycycline Hyclate (Doxycycline 100 Mg Cap) 100 mg PO BID AIDA Guaifenesin/Phenylephrine HCl (Guaifenesin/Dextromethorphan 100-10 Mg/5 Ml Soln 5 Ml Cup) 5 ml PO Q4H PRN PRN Reason: Other Ceftriaxone Sodium 1 gm/ (Sodium Chloride) 100 mls @ 200 mls/hr IV Q24H AIDA Ondansetron HCl (Ondansetron 4 Mg/2 Ml Sdv) 4 mg IV Q4H PRN PRN Reason: Nausea/Vomiting Sodium Chloride (Sodium Chloride 0.9% 10 Ml Syringe) 10 ml FLUSH ASDIRECTED PRN PRN Reason: Keep Vein Open Last Admin: 03/03/21 14:03 Dose: 10 ml Documented by: HERMAN Labs: Laboratory Tests 03/03/21 03/03/21 03/03/21 Range/Units 13:15 13:15 13:15 WBC 7.79 (4.23-9.07) K/mm3 RBC 3.61 L (4.63-6.08) M/mm3 Hgb 10.6 L (13.7-17.5) gm/dl Hct 32.9 L (40.1-51.0) % MCV 91.1 (79.0-92.2) fl MCH 29.4 (25.7-32.2) pg MCHC 32.2 (32.2-35.5) g/dl RDW Std Deviation 51.6 H (35.1-43.9) fL Plt Count 103 L (163-337) K/mm3 MPV 12.2 (9.4-12.3) fl Neut % (Auto) 73.4 H (34.0-67.9) % Lymph % (Auto) 8.9 L (21.8-53.1) % [place] % (Auto) 17.5 H (5.3-12.2) % Eos % (Auto) 0 L (0.8-7.0) Baso % (Auto) 0.1 (0.1-1.2) % Neut # (Auto) 5.72 H (1.78-5.38) K/mm3 Lymph # (Auto) 0.69 L (1.32-3.57) K/mm3 [place] # (Auto) 1.36 H (0.30-0.82) K/mm3 Eos # (Auto) 0.00 L (0.04-0.54) K/mm3 Baso # (Auto) 0.01 (0.01-0.08) K/mm3 Manual Slide Review Abnormal smear PT 15.1 H (9.7-12.0) SECONDS INR 1.42 APTT 41.9 H (21.7-31.4) SECONDS Sodium 140 (136-145) mEq/L Potassium 5.0 (3.5-5.1) mEq/L Chloride 105 (98-107) mEq/L Carbon Dioxide 24 (21-32) mEq/L Anion Gap 16.0 H (5-15) BUN 77 H D (7-18) mg/dL Creatinine 2.2 H (0.7-1.3) mg/dL Est Cr Clr Drug Dosing 30.41 mL/min Estimated GFR (MDRD) 29 (>60) mL/min BUN/Creatinine Ratio 35.0 H (14-18) Glucose 154 H (70-99) mg/dL Lactic Acid (0.4-2.0) mmol/L Calcium 8.6 (8.5-10.1) mg/dL Total Bilirubin 1.4 H (0.2-1.0) mg/dL AST 28 (15-37) U/L ALT 28 (16-63) U/L Alkaline Phosphatase 151 H (46-116) U/L Troponin I < 0.017 (0.00-0.056) ng/mL C-Reactive Protein 19.1 H* (<1.0) mg/dL NT-Pro-B Natriuret Pep (0-450) pg/mL Total Protein 7.6 (6.4-8.2) g/dl Albumin 3.1 L (3.4-5.0) g/dl Globulin 4.5 gm/dL Albumin/Globulin Ratio 0.7 L (1-2) SARS-CoV-2 RNA (SHAUNA) (NEGATIVE) 03/03/21 03/03/21 03/03/21 Range/Units 13:15 13:15 15:03 WBC (4.23-9.07) K/mm3 RBC (4.63-6.08) M/mm3 Hgb (13.7-17.5) gm/dl Hct (40.1-51.0) % MCV (79.0-92.2) fl MCH (25.7-32.2) pg MCHC (32.2-35.5) g/dl RDW Std Deviation (35.1-43.9) fL Plt Count (163-337) K/mm3 MPV (9.4-12.3) fl Neut % (Auto) (34.0-67.9) % Lymph % (Auto) (21.8-53.1) % [place] % (Auto) (5.3-12.2) % Eos % (Auto) (0.8-7.0) Baso % (Auto) (0.1-1.2) % Neut # (Auto) (1.78-5.38) K/mm3 Lymph # (Auto) (1.32-3.57) K/mm3 [place] # (Auto) (0.30-0.82) K/mm3 Eos # (Auto) (0.04-0.54) K/mm3 Baso # (Auto) (0.01-0.08) K/mm3 Manual Slide Review PT (9.7-12.0) SECONDS INR APTT (21.7-31.4) SECONDS Sodium (136-145) mEq/L Potassium (3.5-5.1) mEq/L Chloride (98-107) mEq/L Carbon Dioxide (21-32) mEq/L Anion Gap (5-15) BUN (7-18) mg/dL Creatinine (0.7-1.3) mg/dL Est Cr Clr Drug Dosing mL/min Estimated GFR (MDRD) (>60) mL/min BUN/Creatinine Ratio (14-18) Glucose (70-99) mg/dL Lactic Acid 1.4 (0.4-2.0) mmol/L Calcium (8.5-10.1) mg/dL Total Bilirubin (0.2-1.0) mg/dL AST (15-37) U/L ALT (16-63) U/L Alkaline Phosphatase (46-116) U/L Troponin I (0.00-0.056) ng/mL C-Reactive Protein (<1.0) mg/dL NT-Pro-B Natriuret Pep 90014 H (0-450) pg/mL Total Protein (6.4-8.2) g/dl Albumin (3.4-5.0) g/dl Globulin gm/dL Albumin/Globulin Ratio (1-2) SARS-CoV-2 RNA (SHAUNA) Negative (NEGATIVE) Meds: Medications Generic Name Dose Route Start Last Admin Trade Name Freq PRN Reason Stop Dose Admin Acetaminophen 650 mg 03/03/21 17:21 Acetaminophen 325 Mg Tab PO Q4H PRN Pain (Mild 1-3)/fever Albuterol/Ipratropium 3 ml 03/03/21 18:00 Albuterol/Ipratropium 3.0-0.5 Mg/3 Ml Neb Soln NEB Q4HRRT AIDA Doxycycline Hyclate 100 mg 03/03/21 21:00 Doxycycline 100 Mg Cap PO BID AIDA Guaifenesin/Phenylephrine HCl 5 ml 03/03/21 17:25 Guaifenesin/Dextromethorphan 100-10 Mg/5 Ml Soln 5 Ml Cup PO Q4H PRN Other Ceftriaxone Sodium 1 gm/ 100 mls @ 200 mls/hr 03/04/21 16:00 Sodium Chloride IV Q24H AIDA Ondansetron HCl 4 mg 03/03/21 17:21 Ondansetron 4 Mg/2 Ml Sdv IV Q4H PRN Nausea/Vomiting Sodium Chloride 10 ml 03/03/21 12:56 08/05/21 14:03 Sodium Chloride 0.9% 10 Ml Syringe FLUSH 10 ml ASDIRECTED PRN Administration Keep Vein Open Discontinued Medications Generic Name Dose Route Start Last Admin Trade Name Betsy PRN Reason Stop Dose Admin Albuterol/Ipratropium 3 ml 03/03/21 13:37 03/03/21 14:18 Albuterol/Ipratropium 3.0-0.5 Mg/3 Ml Neb Soln NEB 03/03/21 13:38 3 ml ONETIME ONE Administration Ceftriaxone Sodium 2 gm/ 100 mls @ 200 mls/hr 03/03/21 12:58 03/03/21 13:58 Sodium Chloride IV 03/03/21 13:27 200 mls/hr ONETIME ONE Administration - Re-Assessments/Exams Free Text/Narrative Re-Assessment/Exam: 03/03/21 17:44 I ordered oxygen, IV saline lock, EKG, CT of his chest, labs, blood cultures, lactic acid, rocephin 2 grams IV and COVID 19. His EKG is paced. His WBC was normal. His Hgb was low at 10.6. His platelets were low at 103. His PT was elevated at 15.1. His PTT was elevated at 41.9. His BUN is elevated at 77. H is creatinine is elevated at 2.2. His glucose was elevated at 154. His total bili is elevated at 1.4. His troponin is negative. His CRP is elevated at 19.1. His BNP is elevated even more today at 10, 464. His COVID 19 is negative. I feel he needs to be admitted. I called Dr Coyle and he agreed to the admission. Departure - Departure Time of Disposition: 18:00 Disposition: Admitted As Inpatient 68 Condition: Fair Clinical Impression: Renal insufficiency, Hypoxia CHF (congestive heart failure) Qualifiers: Heart failure type: other Qualified Code(s): I50.9 - Heart failure, unspecified Pneumonia Qualifiers: Pneumonia type: due to unspecified organism Laterality: bilateral Lung location: lower lobe of lung Qualified Code(s): J18.9 - Pneumonia, unspecified organism Referrals: Ranjith Noland PA-C [Primary Care Provider] - Forms: ED Department Discharge Sepsis Event Note (ED) - Evaluation Sepsis Screening Result: No Definite Risk - Focused Exam Vital Signs: Vital Signs Temp Pulse Resp BP Pulse Ox Pulse Ox 03/03/21 13:37 91 L 03/03/21 12:31 97.8 F 63 20 115/50 L 85 L - My Orders Last 24 Hours: My Active Orders 03/03/21 12:42 EKG 12 Lead [EKG Documentation Completion] [RC] STAT 03/03/21 12:56 Cardiac Monitoring [RC] . DIRECTED Oxygen Therapy [RC] PRN Sodium Chloride 0.9% [Saline Flush] 10 ml FLUSH ASDIRECTED PRN Peripheral IV Insertion Adult [OM.PC] Stat 03/03/21 12:57 Peripheral IV Care [RC] . DIRECTED 03/03/21 13:15 BLOOD CULTURE [MREF] Stat 03/03/21 13:20 BLOOD CULTURE [MREF] Routine 03/03/21 13:37 RT Aerosol Therapy [RC] ASDIRECTED 03/03/21 16:37 RESPIRATORY CULT [MREF] Stat - Assessment/Plan Last 24 Hours: My Active Orders 03/03/21 12:42 EKG 12 Lead [EKG Documentation Completion] [RC] STAT 03/03/21 12:56 Cardiac Monitoring [RC] . DIRECTED Oxygen Therapy [RC] PRN Sodium Chloride 0.9% [Saline Flush] 10 ml FLUSH ASDIRECTED PRN Peripheral IV Insertion Adult [OM.PC] Stat 03/03/21 12:57 Peripheral IV Care [RC] . DIRECTED 03/03/21 13:15 BLOOD CULTURE [MREF] Stat 03/03/21 13:20 BLOOD CULTURE [MREF] Routine 03/03/21 13:37 RT Aerosol Therapy [RC] ASDIRECTED 03/03/21 16:37 RESPIRATORY CULT [MREF] Stat
[2021-03-03] MEDS ORDERED: Ondansetron 4 MG/2 ML SDV IV PRN (17:21)
[2021-03-03] MEDS ORDERED: Acetaminophen 325 MG Tab PO PRN (17:21)
--- NOTE | 2021-03-03 18:02 | PCM.HP.2 ---
H&P History of Present Illness - General Date of Service: 03/03/21 Admit Problem/Dx: Admission Diagnosis/Problem Admission Diagnosis/Problem Congestive heart failure CAP CHF Source of Information: Patient History Limitations: Reports: No Limitations - History of Present Illness Initial Comments - Free Text/Narative: This is a 85M with PMhx of atrial fibrillation (on eliquis); hx of CAD/HTN, suspected undiagnosed CHF presenting for evaluation of SOB. The patient has been feeling ill for over two weeks. He has had SOB, and productive cough. Denies chest pain, fever, chest pressure. He was recently seen in clinic and started on Lasix which he stated worsened his symptoms. He also endorses orthopnea and lower extremity edema. Denies fall. He presented to the ED and was hypoxic requiring 2-3 liters supplemental oxygen. He stated his SOB improved with nebulizer. He underwent CT Chest which showed small bilateral pleural effusion, increased density within lower lung rice, right lower lung nodule (Repeat CT recommended in 6-9 months). He was given ceftriaxone and admitted for further evaluation. - Related Data Allergies/Adverse Reactions: Allergies Allergy/AdvReac Type Severity Reaction Status Date / Time No Known Allergies Allergy Verified 03/03/21 12:34 Home Medications: Home Meds Apixaban [Eliquis] 5 mg PO BID 09/17/20 [History] Furosemide [Lasix] 40 mg PO DAILY 09/17/20 [History] Insulin Aspart [NovoLOG] 0 unit SQ ASDIRECTED PRN 09/17/20 [History] Losartan [Cozaar] 12.5 mg PO DAILY 09/17/20 [History] Simvastatin 40 mg PO BEDTIME 09/17/20 [History] carvediloL [Carvedilol] 25 mg PO BID 09/17/20 [History] Aspirin 81 mg PO Q48H 02/27/21 [History] Furosemide 40 mg PO Q48H 03/03/21 [History] Furosemide [Lasix] 20 mg PO Q48H 03/03/21 [History] Insulin Detemir [Levemir Flextouch] 25 units SQ DAILY 03/03/21 [History] Potassium Chloride [Klor-Con 10] 0 mg PO DAILY 03/03/21 [History] Past Medical History HEENT History: Reports: Cataract Other HEENT History: wears eyeglasses, epistaxis. 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, Type I - Infectious Disease History Infectious Disease History: Reports: Measles, Mumps - Past Surgical History HEENT Surgical History: Reports: Cataract Surgery Cardiovascular Surgical History: Reports: Carotid Endarterectomy, Carotid Stents, Coronary Artery Bypass GI Surgical History: Reports: Appendectomy Social & Family History - Family History Family Medical History: No Pertinent Family History - Tobacco Use Tobacco Use Status *Q: Former Tobacco User Used Tobacco, but Quit: Yes Month/Year Tobacco Last Used: 30 years ago - Caffeine Use Caffeine Use: Reports: Coffee - Recreational Drug Use Recreational Drug Use: No - Living Situation & Occupation Living situation: Reports: , with Spouse Occupation: Retired H&P Review of Systems - Review of Systems: Review Of Systems: Comprehensive ROS is negative, except as noted in HPI. Exam - Exam Exam: See Below - Vital Signs Vital Signs: Last Vital Signs Temp 97.8 F 03/03/21 12:31 Pulse 63 03/03/21 12:31 Resp 20 03/03/21 12:31 BP 115/50 L 03/03/21 12:31 Pulse Ox 91 L 03/03/21 13:37 Weight: 192 lb - Exam Physical Exam Comments:: Exam Gen: no acute distress HEENT: NCAT EOMI MMM Neck: Supple CV: RRR normal s1 s2 Lungs: diminished breath sounds Abd: soft, nt, nd Neuro: AOX3, CN intact, nonfocal screening exam MSK: age appropriate muscle mass Ext: 2+ Lower extremity edema; bilateral Psych: appropriate affect. - Patient Data Lab Results Last 24 hrs: Laboratory Results - last 24 hr 03/03/21 03/03/21 03/03/21 Range/Units 13:15 13:15 13:15 WBC 7.79 (4.23-9.07) K/mm3 RBC 3.61 L (4.63-6.08) M/mm3 Hgb 10.6 L (13.7-17.5) gm/dl Hct 32.9 L (40.1-51.0) % MCV 91.1 (79.0-92.2) fl MCH 29.4 (25.7-32.2) pg MCHC 32.2 (32.2-35.5) g/dl RDW Std Deviation 51.6 H (35.1-43.9) fL Plt Count 103 L (163-337) K/mm3 MPV 12.2 (9.4-12.3) fl Neut % (Auto) 73.4 H (34.0-67.9) % Lymph % (Auto) 8.9 L (21.8-53.1) % Caldwell % (Auto) 17.5 H (5.3-12.2) % Eos % (Auto) 0 L (0.8-7.0) Baso % (Auto) 0.1 (0.1-1.2) % Neut # (Auto) 5.72 H (1.78-5.38) K/mm3 Lymph # (Auto) 0.69 L (1.32-3.57) K/mm3 Caldwell # (Auto) 1.36 H (0.30-0.82) K/mm3 Eos # (Auto) 0.00 L (0.04-0.54) K/mm3 Baso # (Auto) 0.01 (0.01-0.08) K/mm3 Manual Slide Review Abnormal smear PT 15.1 H (9.7-12.0) SECONDS INR 1.42 APTT 41.9 H (21.7-31.4) SECONDS Sodium 140 (136-145) mEq/L Potassium 5.0 (3.5-5.1) mEq/L Chloride 105 (98-107) mEq/L Carbon Dioxide 24 (21-32) mEq/L Anion Gap 16.0 H (5-15) BUN 77 H D (7-18) mg/dL Creatinine 2.2 H (0.7-1.3) mg/dL Est Cr Clr Drug Dosing 30.41 mL/min Estimated GFR (MDRD) 29 (>60) mL/min BUN/Creatinine Ratio 35.0 H (14-18) Glucose 154 H (70-99) mg/dL Lactic Acid (0.4-2.0) mmol/L Calcium 8.6 (8.5-10.1) mg/dL Total Bilirubin 1.4 H (0.2-1.0) mg/dL AST 28 (15-37) U/L ALT 28 (16-63) U/L Alkaline Phosphatase 151 H (46-116) U/L Troponin I < 0.017 (0.00-0.056) ng/mL C-Reactive Protein 19.1 H* (<1.0) mg/dL NT-Pro-B Natriuret Pep (0-450) pg/mL Total Protein 7.6 (6.4-8.2) g/dl Albumin 3.1 L (3.4-5.0) g/dl Globulin 4.5 gm/dL Albumin/Globulin Ratio 0.7 L (1-2) SARS-CoV-2 RNA (SHAUNA) (NEGATIVE) 03/03/21 03/03/21 03/03/21 Range/Units 13:15 13:15 15:03 WBC (4.23-9.07) K/mm3 RBC (4.63-6.08) M/mm3 Hgb (13.7-17.5) gm/dl Hct (40.1-51.0) % MCV (79.0-92.2) fl MCH (25.7-32.2) pg MCHC (32.2-35.5) g/dl RDW Std Deviation (35.1-43.9) fL Plt Count (163-337) K/mm3 MPV (9.4-12.3) fl Neut % (Auto) (34.0-67.9) % Lymph % (Auto) (21.8-53.1) % Caldwell % (Auto) (5.3-12.2) % Eos % (Auto) (0.8-7.0) Baso % (Auto) (0.1-1.2) % Neut # (Auto) (1.78-5.38) K/mm3 Lymph # (Auto) (1.32-3.57) K/mm3 Caldwell # (Auto) (0.30-0.82) K/mm3 Eos # (Auto) (0.04-0.54) K/mm3 Baso # (Auto) (0.01-0.08) K/mm3 Manual Slide Review PT (9.7-12.0) SECONDS INR APTT (21.7-31.4) SECONDS Sodium (136-145) mEq/L Potassium (3.5-5.1) mEq/L Chloride (98-107) mEq/L Carbon Dioxide (21-32) mEq/L Anion Gap (5-15) BUN (7-18) mg/dL Creatinine (0.7-1.3) mg/dL Est Cr Clr Drug Dosing mL/min Estimated GFR (MDRD) (>60) mL/min BUN/Creatinine Ratio (14-18) Glucose (70-99) mg/dL Lactic Acid 1.4 (0.4-2.0) mmol/L Calcium (8.5-10.1) mg/dL Total Bilirubin (0.2-1.0) mg/dL AST (15-37) U/L ALT (16-63) U/L Alkaline Phosphatase (46-116) U/L Troponin I (0.00-0.056) ng/mL C-Reactive Protein (<1.0) mg/dL NT-Pro-B Natriuret Pep 17834 H (0-450) pg/mL Total Protein (6.4-8.2) g/dl Albumin (3.4-5.0) g/dl Globulin gm/dL Albumin/Globulin Ratio (1-2) SARS-CoV-2 RNA (SHAUNA) Negative (NEGATIVE) Result Diagrams: 03/03/21 13:15 03/03/21 13:15 Levy Results Last 24 hrs: Microbiology 03/03/21 16:37 Gram Stain - Final Sputum - Expectorated Imaging Impressions Last 24 hrs: CT Chest which showed small bilateral pleural effusion, increased density within lower lung rice, right lower lung nodule (Repeat CT recommended in 6-9 months). Sepsis Event Note - Evaluation Sepsis Screening Result: No Definite Risk - Focused Exam Vital Signs: Vital Signs Temp Pulse Resp BP Pulse Ox Pulse Ox 03/03/21 13:37 91 L 03/03/21 12:31 97.8 F 63 20 115/50 L 85 L *Q Meaningful Use (ADM) - VTE *Q VTE Pharmacological Contraindications *Q: Risk of Bleeding Problem List Initiated/Reviewed/Updated: Yes Orders Last 24hrs: Active Orders 24 hr Category Date Time Status Patient Status [ADT] Routine ADT 03/03/21 17:37 Active Blood Glucose Check, Bedside [RC] QIDACANDBED Care 03/03/21 17:43 Active Cardiac Monitoring [RC] . DIRECTED Care 03/03/21 12:56 Active EKG 12 Lead [EKG Documentation Completion] [RC] STAT Care 03/03/21 12:42 Active Height and Weight [RC] DAILY Care 03/03/21 17:21 Active Intake and Output [RC] QSHIFT Care 03/03/21 17:21 Active Oxygen Therapy [RC] PRN Care 03/03/21 12:56 Active Oxygen Therapy [RC] PRN Care 03/03/21 17:21 Active Peripheral IV Care [RC] . DIRECTED Care 03/03/21 12:57 Active Pulse Oximetry [RC] CONTINUOUS Care 03/03/21 17:21 Active RT Aerosol Therapy [RC] ASDIRECTED Care 03/03/21 13:37 Active RT Aerosol Therapy [RC] ASDIRECTED Care 03/03/21 17:25 Active Up With Assistance [RC] ASDIRECTED Care 03/03/21 17:21 Active VTE/DVT Education [RC] PER UNIT ROUTINE Care 03/03/21 17:21 Active Vital Signs [RC] Q4H Care 03/03/21 17:21 Active PT Evaluation and Treatment [CONS] Routine Cons 03/03/21 17:21 Active Respiratory Care Assess and Treatment [CONS] Routine Cons 03/03/21 17:21 A ctive Heart Healthy Diet [DIET] Diet 03/03/21 Dinner Active Echo Comp wo Cont [US] Stat Exams 03/04/21 09:00 Ordered BLOOD CULTURE [MREF] Routine Lab 03/03/21 13:20 Received BLOOD CULTURE [MREF] Stat Lab 03/03/21 13:15 Received CBC WITH AUTO DIFF [HEME] AM Lab 03/04/21 05:11 Ordered COMPREHENSIVE METABOLIC PN,CMP [CHEM] AM Lab 03/04/21 05:11 Ordered PROCALCITONIN [REF] Routine Lab 03/04/21 06:00 Ordered RESPIRATORY CULT [MREF] Stat Lab 03/03/21 16:37 Received Acetaminophen [TylenoL] Med 03/03/21 17:21 Active 650 mg PO Q4H PRN Albuterol/Ipratropium [DuoNeb 3.0-0.5 MG/3 ML] Med 03/03/21 18:00 Active 3 ml NEB Q4HRRT Apixaban [Eliquis] Med 03/03/21 21:00 Active 5 mg PO BID Aspirin Med 03/04/21 08:00 Active 81 mg PO Q48H Dextromethorphan/guaiFENesin [Robitussin DM] Med 03/03/21 17:25 Active 5 ml PO Q4H PRN Doxycycline [Vibramycin] Med 03/03/21 21:00 Active 100 mg PO BID Furosemide [Lasix] Med 03/03/21 21:00 Active 20 mg IVPUSH BID Insulin Detemir Med 03/04/21 09:00 Active 25 units SQ DAILY Insulin Lispro [HumaLOG] Med 03/03/21 22:00 Active See Dose Instructions SUBCUT QIDACANDBED Ondansetron [Zofran] Med 03/03/21 17:21 Active 4 mg IV Q4H PRN Simvastatin [Simvastatin] Med 03/03/21 21:00 Active 40 mg PO BEDTIME Sodium Chloride 0.9% [Saline Flush] Med 03/03/21 12:56 Active 10 ml FLUSH ASDIRECTED PRN carvediloL Med 03/03/21 21:00 Active 25 mg PO BID cefTRIAXone [Rocephin] 1 gm Med 03/04/21 16:00 Active Sodium Chloride 0.9% [Normal Saline] 100 ml IV Q24H Peripheral IV Insertion Adult [OM.PC] Stat Oth 03/03/21 12:56 Ordered VTE Pharmacological Contraindications [AST] Per Unit Oth 03/03/21 17:21 Ordered Routine Resuscitation Status Routine Resus Stat 03/03/21 17:21 Ordered Medication Orders Acetaminophen (Acetaminophen 325 Mg Tab) 650 mg PO Q4H PRN PRN Reason: Pain (Mild 1-3)/fever Albuterol/Ipratropium (Albuterol/Ipratropium 3.0-0.5 Mg/3 Ml Neb Soln) 3 ml NEB Q4HRRT AIDA Apixaban (Apixaban 5 Mg Tab) 5 mg PO BID AIDA Aspirin (Aspirin 81 Mg Tab.Chew) 81 mg PO Q48H AIDA Doxycycline Hyclate (Doxycycline 100 Mg Cap) 100 mg PO BID AIDA Furosemide (Furosemide 20 Mg/2 Ml Vial) 20 mg IVPUSH BID AIDA Guaifenesin/Phenylephrine HCl (Guaifenesin/Dextromethorphan 100-10 Mg/5 Ml Soln 5 Ml Cup) 5 ml PO Q4H PRN PRN Reason: Other Ceftriaxone Sodium 1 gm/ (Sodium Chloride) 100 mls @ 200 mls/hr IV Q24H AIDA Insulin Human Lispro (Insulin Lispro 100 Unit/Ml 10 Ml Vial) 0 unit SUBCUT QIDACANDBED [facility]; Protocol Non-Formulary Medication (Simvastatin [Simvastatin]) 40 mg PO BEDTIME AIDA Non-Formulary Medication (Insulin Detemir) 25 units SQ DAILY [facility] Non-Formulary Medication (Carvedilol) 25 mg PO BID [facility] Ondansetron HCl (Ondansetron 4 Mg/2 Ml Sdv) 4 mg IV Q4H PRN PRN Reason: Nausea/Vomiting Sodium Chloride (Sodium Chloride 0.9% 10 Ml Syringe) 10 ml FLUSH ASDIRECTED PRN PRN Reason: Keep Vein Open Last Admin: 03/03/21 14:03 Dose: 10 ml Documented by: HERMAN Assessment/Plan Comment:: Assessment This is a 85M with PMhx of atrial fibrillation (on eliquis); hx of CAD/HTN, suspected undiagnosed CHF presenting for evaluation of SOB, cough, and gener alized weakness. He presented to the ED and was hypoxic requiring 2-3 liters supplemental oxygen. He stated his SOB improved with nebulizer. He underwent CT Chest which showed small bilateral pleural effusion, increased density within lower lung rice, right lower lung nodule (Repeat CT recommended in 6-9 months). He was given ceftriaxone and admitted for further evaluation. 1. Acute hypoxia secondary to CAP 2. Hx of CAD/HTN 3. Hx of atrial fibrillation on eliquis 4. Suspected CHF exacerbation; baseline EF unknown 5. Thrombocytopenia 6. Hx o Type II DM 7. ANJANA/CKD Stage III (anticipate renal function to improve with diuresis/improved cardiac output/renal perfusion pressure) Plan -admit to inpatient -check procal -antibiotics: doxycycline +ceftriaxone -start IV Lasix -check UA -hold losartan -tele -daily weight -I&O -tessalon -RT consult -scheduled duoneb -echo Code-DNR/DNi DVT px-eliquis - Mortality Measure Prognosis:: Good
[2021-03-03] MEDS: Albuterol/Ipratropium 3.0-0.5 MG/3 ML Neb Soln NEB SCH ×2 (18:28→21:19)
[2021-03-03] MEDS: Simvastatin 40 MG Tab PO SCH (20:25)
[2021-03-03] MEDS: Melatonin 3 MG Tab PO SCH (20:25)
[2021-03-03] MEDS: Doxycycline 100 MG Cap PO SCH (20:25)
[2021-03-03] MEDS: Apixaban 5 MG Tab PO SCH (20:25)
[2021-03-03] MEDS: Carvedilol 12.5 MG Tab PO SCH (20:37)
[2021-03-03] MEDS ORDERED: Furosemide 20 MG/2 ML VIAL IVPUSH SCH (21:00)
[2021-03-03] MEDS: Insulin Lispro 100 UNIT/ML 10 ML Vial SUBCUT SCH (21:10)
[2021-03-03] MEDS: guaiFENesin/Dextromethorphan 100-10 MG/5 ML Soln 5 ML Cup PO PRN (21:31)
[2021-03-04] MEDS: Albuterol/Ipratropium 3.0-0.5 MG/3 ML Neb Soln NEB SCH ×6 (01:49→21:30)
[2021-03-04] MEDS: Insulin Lispro 100 UNIT/ML 10 ML Vial SUBCUT SCH ×5 (06:51→21:40)
[2021-03-04] MEDS: Carvedilol 12.5 MG Tab PO SCH ×2 (09:32→20:27)
[2021-03-04] MEDS: Apixaban 5 MG Tab PO SCH ×2 (09:33→20:28)
[2021-03-04] MEDS: Insulin Glarg,Human.Rec.Analog 100 Unit/ML SUBCUT SCH (09:33)
[2021-03-04] MEDS: Spironolactone 25 MG Tab PO SCH (09:33)
[2021-03-04] MEDS: Doxycycline 100 MG Cap PO SCH ×2 (09:33→20:27)
[2021-03-04] MEDS: Aspirin 81 MG Tab.Chew PO SCH (09:33)
[2021-03-04] MEDS: Furosemide 40 MG/4 ML VIAL IVPUSH SCH ×2 (09:34→20:26)
[2021-03-04] MEDS: guaiFENesin/Dextromethorphan 100-10 MG/5 ML Soln 5 ML Cup PO PRN ×2 (11:56→20:27)
--- NOTE | 2021-03-04 13:59 | PCM.PN ---
- General Info Date of Service: 03/04/21 - Review of Systems General: Reports: Weakness, Fatigue HEENT: Reports: Glasses Pulmonary: Reports: Shortness of Breath, Cough Cardiovascular: Reports: PND Gastrointestinal: Reports: No Symptoms Genitourinary: Reports: No Symptoms Musculoskeletal: Reports: No Symptoms Skin: Reports: No Symptoms Neurological: Reports: No Symptoms Psychiatric: Reports: No Symptoms - Patient Data Vitals - Most Recent: Last Vital Signs Temp 97.4 F 03/04/21 09:00 Pulse 60 03/04/21 09:32 Resp 18 03/04/21 09:00 BP 106/53 L 03/04/21 09:32 Pulse Ox 95 03/04/21 09:17 Weight - Most Recent: 86.183 kg I&O - Last 24 Hours: Intake & Output 03/03/21 03/04/21 03/04/21 22:59 06:59 14:59 Intake Total 120 200 Output Total 125 600 Balance 120 75 -600 Lab Results Last 24 Hours: Laboratory Results - last 24 hr 03/03/21 03/03/21 03/03/21 Range/Units 13:15 13:15 13:15 WBC (4.23-9.07) K/mm3 RBC (4.63-6.08) M/mm3 Hgb (13.7-17.5) gm/dl Hct (40.1-51.0) % MCV (79.0-92.2) fl MCH (25.7-32.2) pg MCHC (32.2-35.5) g/dl RDW Std Deviation (35.1-43.9) fL Plt Count (163-337) K/mm3 MPV (9.4-12.3) fl Neut % (Auto) (34.0-67.9) % Lymph % (Auto) (21.8-53.1) % [place] % (Auto) (5.3-12.2) % Eos % (Auto) (0.8-7.0) Baso % (Auto) (0.1-1.2) % Neut # (Auto) (1.78-5.38) K/mm3 Lymph # (Auto) (1.32-3.57) K/mm3 [place] # (Auto) (0.30-0.82) K/mm3 Eos # (Auto) (0.04-0.54) K/mm3 Baso # (Auto) (0.01-0.08) K/mm3 Manual Slide Review Abnormal smear Sodium 140 (136-145) mEq/L Potassium 5.0 (3.5-5.1) mEq/L Chloride 105 (98-107) mEq/L Carbon Dioxide 24 (21-32) mEq/L Anion Gap 16.0 H (5-15) BUN 77 H D (7-18) mg/dL Creatinine 2.2 H (0.7-1.3) mg/dL Est Cr Clr Drug Dosing 30.41 mL/min Estimated GFR (MDRD) 29 (>60) mL/min BUN/Creatinine Ratio 35.0 H (14-18) Glucose 154 H (70-99) mg/dL POC Glucose (70-99) mg/dL Lactic Acid (0.4-2.0) mmol/L Calcium 8.6 (8.5-10.1) mg/dL Total Bilirubin 1.4 H (0.2-1.0) mg/dL AST 28 (15-37) U/L ALT 28 (16-63) U/L Alkaline Phosphatase 151 H (46-116) U/L Troponin I < 0.017 (0.00-0.056) ng/mL C-Reactive Protein 19.1 H* (<1.0) mg/dL NT-Pro-B Natriuret Pep 47117 H (0-450) pg/mL Total Protein 7.6 (6.4-8.2) g/dl Albumin 3.1 L (3.4-5.0) g/dl Globulin 4.5 gm/dL Albumin/Globulin Ratio 0.7 L (1-2) Procalcitonin ng/mL SARS-CoV-2 RNA (SHAUNA) (NEGATIVE) 03/03/21 03/03/21 03/03/21 Range/Units 13:15 15:03 20:31 WBC (4.23-9.07) K/mm3 RBC (4.63-6.08) M/mm3 Hgb (13.7-17.5) gm/dl Hct (40.1-51.0) % MCV (79.0-92.2) fl MCH (25.7-32.2) pg MCHC (32.2-35.5) g/dl RDW Std Deviation (35.1-43.9) fL Plt Count (163-337) K/mm3 MPV (9.4-12.3) fl Neut % (Auto) (34.0-67.9) % Lymph % (Auto) (21.8-53.1) % [place] % (Auto) (5.3-12.2) % Eos % (Auto) (0.8-7.0) Baso % (Auto) (0.1-1.2) % Neut # (Auto) (1.78-5.38) K/mm3 Lymph # (Auto) (1.32-3.57) K/mm3 [place] # (Auto) (0.30-0.82) K/mm3 Eos # (Auto) (0.04-0.54) K/mm3 Baso # (Auto) (0.01-0.08) K/mm3 Manual Slide Review Sodium (136-145) mEq/L Potassium (3.5-5.1) mEq/L Chloride (98-107) mEq/L Carbon Dioxide (21-32) mEq/L Anion Gap (5-15) BUN (7-18) mg/dL Creatinine (0.7-1.3) mg/dL Est Cr Clr Drug Dosing mL/min Estimated GFR (MDRD) (>60) mL/min BUN/Creatinine Ratio (14-18) Glucose (70-99) mg/dL POC Glucose 225 H (70-99) mg/dL Lactic Acid 1.4 (0.4-2.0) mmol/L Calcium (8.5-10.1) mg/dL Total Bilirubin (0.2-1.0) mg/dL AST (15-37) U/L ALT (16-63) U/L Alkaline Phosphatase (46-116) U/L Troponin I (0.00-0.056) ng/mL C-Reactive Protein (<1.0) mg/dL NT-Pro-B Natriuret Pep (0-450) pg/mL Total Protein (6.4-8.2) g/dl Albumin (3.4-5.0) g/dl Globulin gm/dL Albumin/Globulin Ratio (1-2) Procalcitonin ng/mL SARS-CoV-2 RNA (SHAUNA) Negative (NEGATIVE) 03/04/21 03/04/21 03/04/21 Range/Units 05:30 05:30 05:30 WBC 6.45 (4.23-9.07) K/mm3 RBC 3.22 L (4.63-6.08) M/mm3 Hgb 9.4 L (13.7-17.5) gm/dl Hct 29.5 L (40.1-51.0) % MCV 91.6 (79.0-92.2) fl MCH 29.2 (25.7-32.2) pg MCHC 31.9 L (32.2-35.5) g/dl RDW Std Deviation 52.4 H (35.1-43.9) fL Plt Count 91 L (163-337) K/mm3 MPV 11.6 (9.4-12.3) fl Neut % (Auto) 70.4 H (34.0-67.9) % Lymph % (Auto) 11.8 L (21.8-53.1) % [place] % (Auto) 16.9 H (5.3-12.2) % Eos % (Auto) 0.6 L (0.8-7.0) Baso % (Auto) 0.3 (0.1-1.2) % Neut # (Auto) 4.54 (1.78-5.38) K/mm3 Lymph # (Auto) 0.76 L (1.32-3.57) K/mm3 [place] # (Auto) 1.09 H (0.30-0.82) K/mm3 Eos # (Auto) 0.04 (0.04-0.54) K/mm3 Baso # (Auto) 0.02 (0.01-0.08) K/mm3 Manual Slide Review Abnormal smear Sodium 144 (136-145) mEq/L Potassium 5.0 (3.5-5.1) mEq/L Chloride 109 H (98-107) mEq/L Carbon Dioxide 26 (21-32) mEq/L Anion Gap 14.0 (5-15) BUN 87 H (7-18) mg/dL Creatinine 2.3 H (0.7-1.3) mg/dL Est Cr Clr Drug Dosing 26.71 mL/min Estimated GFR (MDRD) 27 (>60) mL/min BUN/Creatinine Ratio 37.8 H (14-18) Glucose 124 H (70-99) mg/dL POC Glucose (70-99) mg/dL Lactic Acid (0.4-2.0) mmol/L Calcium 8.2 L (8.5-10.1) mg/dL Total Bilirubin 0.9 (0.2-1.0) mg/dL AST 53 H (15-37) U/L ALT 44 (16-63) U/L Alkaline Phosphatase 196 H (46-116) U/L Troponin I (0.00-0.056) ng/mL C-Reactive Protein (<1.0) mg/dL NT-Pro-B Natriuret Pep (0-450) pg/mL Total Protein 6.8 (6.4-8.2) g/dl Albumin 2.6 L (3.4-5.0) g/dl Globulin 4.2 gm/dL Albumin/Globulin Ratio 0.6 L (1-2) Procalcitonin 4.00 H ng/mL SARS-CoV-2 RNA (SHAUNA) (NEGATIVE) 03/04/21 03/04/21 Range/Units 06:36 11:48 WBC (4.23-9.07) K/mm3 RBC (4.63-6.08) M/mm3 Hgb (13.7-17.5) gm/dl Hct (40.1-51.0) % MCV (79.0-92.2) fl MCH (25.7-32.2) pg MCHC (32.2-35.5) g/dl RDW Std Deviation (35.1-43.9) fL Plt Count (163-337) K/mm3 MPV (9.4-12.3) fl Neut % (Auto) (34.0-67.9) % Lymph % (Auto) (21.8-53.1) % [place] % (Auto) (5.3-12.2) % Eos % (Auto) (0.8-7.0) Baso % (Auto) (0.1-1.2) % Neut # (Auto) (1.78-5.38) K/mm3 Lymph # (Auto) (1.32-3.57) K/mm3 [place] # (Auto) (0.30-0.82) K/mm3 Eos # (Auto) (0.04-0.54) K/mm3 Baso # (Auto) (0.01-0.08) K/mm3 Manual Slide Review Sodium (136-145) mEq/L Potassium (3.5-5.1) mEq/L Chloride (98-107) mEq/L Carbon Dioxide (21-32) mEq/L Anion Gap (5-15) BUN (7-18) mg/dL Creatinine (0.7-1.3) mg/dL Est Cr Clr Drug Dosing mL/min Estimated GFR (MDRD) (>60) mL/min BUN/Creatinine Ratio (14-18) Glucose (70-99) mg/dL POC Glucose 98 220 H (70-99) mg/dL Lactic Acid (0.4-2.0) mmol/L Calcium (8.5-10.1) mg/dL Total Bilirubin (0.2-1.0) mg/dL AST (15-37) U/L ALT (16-63) U/L Alkaline Phosphatase (46-116) U/L Troponin I (0.00-0.056) ng/mL C-Reactive Protein (<1.0) mg/dL NT-Pro-B Natriuret Pep (0-450) pg/mL Total Protein (6.4-8.2) g/dl Albumin (3.4-5.0) g/dl Globulin gm/dL Albumin/Globulin Ratio (1-2) Procalcitonin ng/mL SARS-CoV-2 RNA (SHAUNA) (NEGATIVE) Levy Results Last 24 Hours: Microbiology 03/03/21 16:37 Gram Stain - Final Sputum - Expectorated 03/03/21 16:37 Gram Stain - Final Sputum - Expectorated Med Orders - Current: Current Medications Acetaminophen (Acetaminophen 325 Mg Tab) 650 mg PO Q4H PRN PRN Reason: Pain (Mild 1-3)/fever Albuterol/Ipratropium (Albuterol/Ipratropium 3.0-0.5 Mg/3 Ml Neb Soln) 3 ml NEB Q4HRRT [facility] Last Admin: 03/04/21 13:49 Dose: 3 ml Documented by: Apixaban (Apixaban 5 Mg Tab) 5 mg PO BID [facility] Last Admin: 03/04/21 09:33 Dose: 5 mg Documented by: Aspirin (Aspirin 81 Mg Tab.Chew) 81 mg PO Q48H [facility] Last Admin: 03/04/21 09:33 Dose: 81 mg Documented by: Carvedilol (Carvedilol 12.5 Mg Tab) 25 mg PO BID [facility] Last Admin: 03/04/21 09:32 Dose: 25 mg Documented by: Doxycycline Hyclate (Doxycycline 100 Mg Cap) 100 mg PO BID [facility] Last Admin: 03/04/21 09:33 Dose: 100 mg Documented by: Furosemide (Furosemide 40 Mg/4 Ml Vial) 40 mg IVPUSH BID [facility] Last Admin: 03/04/21 09:34 Dose: 40 mg Documented by: Guaifenesin/Phenylephrine HCl (Guaifenesin/Dextromethorphan 100-10 Mg/5 Ml Soln 5 Ml Cup) 5 ml PO Q4H PRN PRN Reason: Other Last Admin: 03/04/21 11:56 Dose: 5 ml Documented by: Ceftriaxone Sodium 1 gm/ (Sodium Chloride) 100 mls @ 200 mls/hr IV Q24H [facility] Insulin Glargine (Insulin Glarg,Human.Rec.Analog 100 Unit/Ml) 25 unit SUBCUT DAILY [facility] Last Admin: 03/04/21 09:33 Dose: 25 units Documented by: Insulin Human Lispro (Insulin Lispro 100 Unit/Ml 10 Ml Vial) 0 unit SUBCUT QIDACANDBED [facility]; Protocol Last Admin: 03/04/21 13:17 Dose: Not Given Documented by: Melatonin (Melatonin 3 Mg Tab) 6 mg PO BEDTIME [facility] Last Admin: 03/03/21 20:25 Dose: 6 mg Documented by: Ondansetron HCl (Ondansetron 4 Mg/2 Ml Sdv) 4 mg IV Q4H PRN PRN Reason: Nausea/Vomiting Simvastatin (Simvastatin 40 Mg Tab) 40 mg PO BEDTIME [facility] Last Admin: 03/03/21 20:25 Dose: 40 mg Documented by: Sodium Chloride (Sodium Chloride 0.9% 10 Ml Syringe) 10 ml FLUSH ASDIRECTED PRN PRN Reason: Keep Vein Open Last Admin: 03/03/21 14:03 Dose: 10 ml Documented by: Spironolactone (Spironolactone 25 Mg Tab) 25 mg PO DAILY [facility] Last Admin: 03/04/21 09:33 Dose: 25 mg Documented by: Discontinued Medications Albuterol/Ipratropium (Albuterol/Ipratropium 3.0-0.5 Mg/3 Ml Neb Soln) 3 ml NEB ONETIME ONE Stop: 03/03/21 13:38 Last Admin: 03/03/21 14:18 Dose: 3 ml Documented by: Furosemide (Furosemide 20 Mg/2 Ml Vial) 20 mg IVPUSH BID [facility] Last Admin: 03/03/21 20:26 Dose: 20 mg Documented by: Ceftriaxone Sodium 2 gm/ (Sodium Chloride) 100 mls @ 200 mls/hr IV ONETIME ONE Stop: 03/03/21 13:27 Last Admin: 03/03/21 13:58 Dose: 200 mls/hr Documented by: - Exam General: Alert, Oriented HEENT: Mucous Membr. Moist/[place] Neck: Supple Lungs: Rhonchi (in all rice) Cardiovascular: Regular Rate, Regular Rhythm, No Murmurs, Rubs GI/Abdominal Exam: Normal Bowel Sounds, Soft, Non-Tender, No Organomegaly, No Distention, No Mass (Male) Exam: Deferred Back Exam: Normal Inspection Extremities: Pedal Edema (1+) Skin: Warm, Dry, Intact Neurological: No New Focal Deficit Psy/Mental Status: Alert, Normal Affect, Normal Mood - Patient Data Lab Results Last 24 hrs: Laboratory Results - last 24 hr 03/03/21 03/03/21 03/03/21 Range/Units 13:15 13:15 13:15 WBC (4.23-9.07) K/mm3 RBC (4.63-6.08) M/mm3 Hgb (13.7-17.5) gm/dl Hct (40.1-51.0) % MCV (79.0-92.2) fl MCH (25.7-32.2) pg MCHC (32.2-35.5) g/dl RDW Std Deviation (35.1-43.9) fL Plt Count (163-337) K/mm3 MPV (9.4-12.3) fl Neut % (Auto) (34.0-67.9) % Lymph % (Auto) (21.8-53.1) % [place] % (Auto) (5.3-12.2) % Eos % (Auto) (0.8-7.0) Baso % (Auto) (0.1-1.2) % Neut # (Auto) (1.78-5.38) K/mm3 Lymph # (Auto) (1.32-3.57) K/mm3 [place] # (Auto) (0.30-0.82) K/mm3 Eos # (Auto) (0.04-0.54) K/mm3 Baso # (Auto) (0.01-0.08) K/mm3 Manual Slide Review Abnormal smear Sodium 140 (136-145) mEq/L Potassium 5.0 (3.5-5.1) mEq/L Chloride 105 (98-107) mEq/L Carbon Dioxide 24 (21-32) mEq/L Anion Gap 16.0 H (5-15) BUN 77 H D (7-18) mg/dL Creatinine 2.2 H (0.7-1.3) mg/dL Est Cr Clr Drug Dosing 30.41 mL/min Estimated GFR (MDRD) 29 (>60) mL/min BUN/Creatinine Ratio 35.0 H (14-18) Glucose 154 H (70-99) mg/dL POC Glucose (70-99) mg/dL Lactic Acid (0.4-2.0) mmol/L Calcium 8.6 (8.5-10.1) mg/dL Total Bilirubin 1.4 H (0.2-1.0) mg/dL AST 28 (15-37) U/L ALT 28 (16-63) U/L Alkaline Phosphatase 151 H (46-116) U/L Troponin I < 0.017 (0.00-0.056) ng/mL C-Reactive Protein 19.1 H* (<1.0) mg/dL NT-Pro-B Natriuret Pep 73630 H (0-450) pg/mL Total Protein 7.6 (6.4-8.2) g/dl Albumin 3.1 L (3.4-5.0) g/dl Globulin 4.5 gm/dL Albumin/Globulin Ratio 0.7 L (1-2) Procalcitonin ng/mL SARS-CoV-2 RNA (SHAUNA) (NEGATIVE) 03/03/21 03/03/21 03/03/21 Range/Units 13:15 15:03 20:31 WBC (4.23-9.07) K/mm3 RBC (4.63-6.08) M/mm3 Hgb (13.7-17.5) gm/dl Hct (40.1-51.0) % MCV (79.0-92.2) fl MCH (25.7-32.2) pg MCHC (32.2-35.5) g/dl RDW Std Deviation (35.1-43.9) fL Plt Count (163-337) K/mm3 MPV (9.4-12.3) fl Neut % (Auto) (34.0-67.9) % Lymph % (Auto) (21.8-53.1) % [place] % (Auto) (5.3-12.2) % Eos % (Auto) (0.8-7.0) Baso % (Auto) (0.1-1.2) % Neut # (Auto) (1.78-5.38) K/mm3 Lymph # (Auto) (1.32-3.57) K/mm3 [place] # (Auto) (0.30-0.82) K/mm3 Eos # (Auto) (0.04-0.54) K/mm3 Baso # (Auto) (0.01-0.08) K/mm3 Manual Slide Review Sodium (136-145) mEq/L Potassium (3.5-5.1) mEq/L Chloride (98-107) mEq/L Carbon Dioxide (21-32) mEq/L Anion Gap (5-15) BUN (7-18) mg/dL Creatinine (0.7-1.3) mg/dL Est Cr Clr Drug Dosing mL/min Estimated GFR (MDRD) (>60) mL/min BUN/Creatinine Ratio (14-18) Glucose (70-99) mg/dL POC Glucose 225 H (70-99) mg/dL Lactic Acid 1.4 (0.4-2.0) mmol/L Calcium (8.5-10.1) mg/dL Total Bilirubin (0.2-1.0) mg/dL AST (15-37) U/L ALT (16-63) U/L Alkaline Phosphatase (46-116) U/L Troponin I (0.00-0.056) ng/mL C-Reactive Protein (<1.0) mg/dL NT-Pro-B Natriuret Pep (0-450) pg/mL Total Protein (6.4-8.2) g/dl Albumin (3.4-5.0) g/dl Globulin gm/dL Albumin/Globulin Ratio (1-2) Procalcitonin ng/mL SARS-CoV-2 RNA (SHAUNA) Negative (NEGATIVE) 03/04/21 03/04/21 03/04/21 Range/Units 05:30 05:30 05:30 WBC 6.45 (4.23-9.07) K/mm3 RBC 3.22 L (4.63-6.08) M/mm3 Hgb 9.4 L (13.7-17.5) gm/dl Hct 29.5 L (40.1-51.0) % MCV 91.6 (79.0-92.2) fl MCH 29.2 (25.7-32.2) pg MCHC 31.9 L (32.2-35.5) g/dl RDW Std Deviation 52.4 H (35.1-43.9) fL Plt Count 91 L (163-337) K/mm3 MPV 11.6 (9.4-12.3) fl Neut % (Auto) 70.4 H (34.0-67.9) % Lymph % (Auto) 11.8 L (21.8-53.1) % [place] % (Auto) 16.9 H (5.3-12.2) % Eos % (Auto) 0.6 L (0.8-7.0) Baso % (Auto) 0.3 (0.1-1.2) % Neut # (Auto) 4.54 (1.78-5.38) K/mm3 Lymph # (Auto) 0.76 L (1.32-3.57) K/mm3 [place] # (Auto) 1.09 H (0.30-0.82) K/mm3 Eos # (Auto) 0.04 (0.04-0.54) K/mm3 Baso # (Auto) 0.02 (0.01-0.08) K/mm3 Manual Slide Review Abnormal smear Sodium 144 (136-145) mEq/L Potassium 5.0 (3.5-5.1) mEq/L Chloride 109 H (98-107) mEq/L Carbon Dioxide 26 (21-32) mEq/L Anion Gap 14.0 (5-15) BUN 87 H (7-18) mg/dL Creatinine 2.3 H (0.7-1.3) mg/dL Est Cr Clr Drug Dosing 26.71 mL/min Estimated GFR (MDRD) 27 (>60) mL/min BUN/Creatinine Ratio 37.8 H (14-18) Glucose 124 H (70-99) mg/dL POC Glucose (70-99) mg/dL Lactic Acid (0.4-2.0) mmol/L Calcium 8.2 L (8.5-10.1) mg/dL Total Bilirubin 0.9 (0.2-1.0) mg/dL AST 53 H (15-37) U/L ALT 44 (16-63) U/L Alkaline Phosphatase 196 H (46-116) U/L Troponin I (0.00-0.056) ng/mL C-Reactive Protein (<1.0) mg/dL NT-Pro-B Natriuret Pep (0-450) pg/mL Total Protein 6.8 (6.4-8.2) g/dl Albumin 2.6 L (3.4-5.0) g/dl Globulin 4.2 gm/dL Albumin/Globulin Ratio 0.6 L (1-2) Procalcitonin 4.00 H ng/mL SARS-CoV-2 RNA (SHAUNA) (NEGATIVE) 03/04/21 03/04/21 Range/Units 06:36 11:48 WBC (4.23-9.07) K/mm3 RBC (4.63-6.08) M/mm3 Hgb (13.7-17.5) gm/dl Hct (40.1-51.0) % MCV (79.0-92.2) fl MCH (25.7-32.2) pg MCHC (32.2-35.5) g/dl RDW Std Deviation (35.1-43.9) fL Plt Count (163-337) K/mm3 MPV (9.4-12.3) fl Neut % (Auto) (34.0-67.9) % Lymph % (Auto) (21.8-53.1) % [place] % (Auto) (5.3-12.2) % Eos % (Auto) (0.8-7.0) Baso % (Auto) (0.1-1.2) % Neut # (Auto) (1.78-5.38) K/mm3 Lymph # (Auto) (1.32-3.57) K/mm3 [place] # (Auto) (0.30-0.82) K/mm3 Eos # (Auto) (0.04-0.54) K/mm3 Baso # (Auto) (0.01-0.08) K/mm3 Manual Slide Review Sodium (136-145) mEq/L Potassium (3.5-5.1) mEq/L Chloride (98-107) mEq/L Carbon Dioxide (21-32) mEq/L Anion Gap (5-15) BUN (7-18) mg/dL Creatinine (0.7-1.3) mg/dL Est Cr Clr Drug Dosing mL/min Estimated GFR (MDRD) (>60) mL/min BUN/Creatinine Ratio (14-18) Glucose (70-99) mg/dL POC Glucose 98 220 H (70-99) mg/dL Lactic Acid (0.4-2.0) mmol/L Calcium (8.5-10.1) mg/dL Total Bilirubin (0.2-1.0) mg/dL AST (15-37) U/L ALT (16-63) U/L Alkaline Phosphatase (46-116) U/L Troponin I (0.00-0.056) ng/mL C-Reactive Protein (<1.0) mg/dL NT-Pro-B Natriuret Pep (0-450) pg/mL Total Protein (6.4-8.2) g/dl Albumin (3.4-5.0) g/dl Globulin gm/dL Albumin/Globulin Ratio (1-2) Procalcitonin ng/mL SARS-CoV-2 RNA (SHAUNA) (NEGATIVE) Result Diagrams: 03/04/21 05:30 03/04/21 05:30 Levy Results Last 24 hrs: Microbiology 03/03/21 16:37 Gram Stain - Final Sputum - Expectorated 03/03/21 16:37 Gram Stain - Final Sputum - Expectorated Sepsis Event Note - Evaluation Sepsis Screening Result: No Definite Risk - Focused Exam Vital Signs: Vital Signs Temp Pulse Resp BP BP Pulse Ox Pulse Ox 03/04/21 09:32 60 106/53 L 03/04/21 09:17 95 03/04/21 09:00 97.4 F 18 106/53 L 96 03/04/21 06:06 03/04/21 03:00 97.2 F 22 H 110/54 L 98 Pulse Ox 03/04/21 09:32 03/04/21 09:17 03/04/21 09:00 03/04/21 06:06 100 03/04/21 03:00 - Problem List & Annotations (1) Anemia SNOMED Code(s): 220436634 Code(s): D64.9 - ANEMIA, UNSPECIFIED Status: Acute Priority: High Current Visit: Yes Onset Date: ~03/03/21 (2) CHF (congestive heart failure) SNOMED Code(s): 27255790 Code(s): I50.9 - HEART FAILURE, UNSPECIFIED Status: Chronic Priority: High Current Visit: Yes Qualifiers: Heart failure type: other Qualified Code(s): I50.9 - Heart failure, unspecified (3) Renal insufficiency SNOMED Code(s): 339727226, 638482435 Code(s): N28.9 - DISORDER OF KIDNEY AND URETER, UNSPECIFIED Status: Chronic Priority: High Current Visit: Yes (4) Pneumonia SNOMED Code(s): 192042968 Code(s): J18.9 - PNEUMONIA, UNSPECIFIED ORGANISM Status: Acute Priority: High Current Visit: Yes Qualifiers: Pneumonia type: due to unspecified organism Laterality: bilateral Lung location: lower lobe of lung Qualified Code(s): J18.9 - Pneumonia, unspecified organism (5) Hypoxia SNOMED Code(s): 767516908 Code(s): R09.02 - HYPOXEMIA Status: Acute Priority: High Current Visit: Yes (6) Type 2 diabetes mellitus SNOMED Code(s): 26598587 Code(s): E11.9 - TYPE 2 DIABETES MELLITUS WITHOUT COMPLICATIONS Status: Chronic Priority: Medium Current Visit: Yes Qualifiers: Diabetes mellitus senior living insulin use: with senior living use - Problem List Review Problem List Initiated/Reviewed/Updated: Yes - Plan Plan:: Assessment This is a 85M with PMhx of atrial fibrillation (on eliquis); hx of CAD/HTN, suspected undiagnosed CHF presenting for evaluation of SOB, cough, and generalized weakness. He presented to the ED and was hypoxic requiring 2-3 liters supplemental oxygen. He stated his SOB improved with nebulizer. He underwent CT Chest which showed small bilateral pleural effusion, increased density within lower lung rice, right lower lung nodule (Repeat CT recommended in 6-9 months). He was given ceftriaxone and admitted for further evaluation. 1. Acute hypoxia secondary to CAP 2. Hx of CAD/HTN 3. Hx of atrial fibrillation on eliquis 4. Suspected CHF exacerbation; baseline EF unknown 5. Thrombocytopenia 6. Hx o Type II DM 7. ANJANA/CKD Stage III (anticipate renal function to improve with diuresis/improved cardiac output/renal perfusion pressure) Plan -admit to inpatient -check procal -antibiotics: doxycycline +ceftriaxone -start IV Lasix -check UA -hold losartan -tele -daily weight -I&O -tessalon -RT consult -scheduled duoneb -echo Code-DNR/DNi DVT px-eliquis 03/04/2021 Assessment: MARY ALICE is an 85yo male with PMH of a.fib, CAD/Htn, T2DM, and suspected CHF who presented for evaluation of SOB, cough and weakness. Following CT chest, diagnosis of CAP was made and ceftriaxone/doxycycline was administered. Today, he continues to cough and requires oxygen, but was able to sleep well and was a lert and interactive. 1. acute hypoxia secondary to CAP 2. acute exacerbation of CHF secondary to CAP 3. Hx of CAD/Htn, a. fib 4. ANJANA/CKD Stage III 5. Anemia 6. Hx of type II DM Plan - continue ceftriaxone/doxycycline - continue supplemental O2 - continue to monitor trends in CBC, BMP, BNP, CRP and vital signs - continue IV lasix - telemetry - continue to monitor daily weight, I & O - test for fecal occult blood, monitor for melena/hematochezia - continue insulin regimen - plan to follow up with [facility] 03/10/21, CHF clinic at [facility]
[2021-03-04] MEDS: cefTRIAXone 1 GM in Sodium Chloride 0.9% 100 ML IV SCH (15:08)
[2021-03-04] MEDS: Simvastatin 40 MG Tab PO SCH (20:26)
[2021-03-04] MEDS: Melatonin 3 MG Tab PO SCH (20:26)
[2021-03-04] MEDS: Sodium Chloride 0.9% 10 ML Syringe FLUSH PRN (20:26)
[2021-03-05] MEDS: Albuterol/Ipratropium 3.0-0.5 MG/3 ML Neb Soln NEB SCH ×6 (01:36→21:22)
[2021-03-05] MEDS: Insulin Lispro 100 UNIT/ML 10 ML Vial SUBCUT SCH ×4 (06:55→21:23)
[2021-03-05] MEDS: Benzonatate 100 MG Cap PO SCH ×2 (08:35→20:13)
[2021-03-05] MEDS: Doxycycline 100 MG Cap PO SCH ×2 (08:35→20:13)
[2021-03-05] MEDS: Carvedilol 12.5 MG Tab PO SCH ×2 (08:35→20:13)
[2021-03-05] MEDS: Apixaban 5 MG Tab PO SCH ×2 (08:36→20:13)
[2021-03-05] MEDS: Spironolactone 25 MG Tab PO SCH (08:36)
[2021-03-05] MEDS ORDERED: Insulin Glarg,Human.Rec.Analog 100 Unit/ML SUBCUT ONE (09:00)
[2021-03-05] MEDS: Furosemide 40 MG/4 ML VIAL IVPUSH SCH (09:01)
[2021-03-05] MEDS: Insulin Glarg,Human.Rec.Analog 100 Unit/ML SUBCUT SCH (09:04)
[2021-03-05] MEDS: guaiFENesin/Dextromethorphan 100-10 MG/5 ML Soln 5 ML Cup PO PRN ×2 (14:30→20:13)
[2021-03-05] MEDS: cefTRIAXone 1 GM in Sodium Chloride 0.9% 100 ML IV SCH (15:42)
--- NOTE | 2021-03-05 16:15 | PCM.PN ---
- General Info Date of Service: 03/05/21 Admission Dx/Problem (Free Text): Admission Diagnosis/Problem Admission Diagnosis/Problem Congestive heart failure CAP CHF Subjective Update: 03/05/21 afebrile vss slept well eating fair. cogh loose and productive. wea kness better. -985 on is/os p.e. ronchii loose air entry good. cor ir/ir 80s sats stable 1 liter abd benign neuro aox4 . chest xray improved bilateral ll pneumonia// improved left pleural effusion and chf lab pending. assess: pneumonia improved. chf improved afib rate controlled. renal function improved. creatanine 1.9 this am. appetite improved anemia appears stable clinically check Hemoccult on xaralto full dose. plan cont current treatments / nebs / increase activity/rehab. wean o2 as tolerated. cardiology follow up as o.p. boh Functional Status: Reports: Pain Controlled - Review of Systems General: Reports: No Symptoms HEENT: Reports: No Symptoms Pulmonary: Reports: Shortness of Breath, Cough. Denies: No Symptoms Cardiovascular: Reports: No Symptoms, Dyspnea on Exertion Gastrointestinal: Reports: No Symptoms Genitourinary: Reports: No Symptoms Musculoskeletal: Reports: No Symptoms Skin: Reports: No Symptoms Neurological: Reports: No Symptoms Psychiatric: Reports: No Symptoms - Patient Data Vitals - Most Recent: Last Vital Signs Temp 36.4 C 03/05/21 14:24 Pulse 62 03/05/21 08:35 Resp 20 03/05/21 14:24 BP 127/48 L 03/05/21 14:24 Pulse Ox 92 L 03/05/21 14:24 Weight - Most Recent: 84.504 kg I&O - Last 24 Hours: Intake & Output 03/05/21 03/05/21 03/05/21 06:59 14:59 22:59 Intake Total 240 300 450 Output Total 750 400 Balance -510 300 50 Lab Results Last 24 Hours: Laboratory Results - last 24 hr 03/04/21 03/04/21 03/04/21 Range/Units 14:56 18:19 21:37 WBC (4.23-9.07) K/mm3 RBC (4.63-6.08) M/mm3 Hgb (13.7-17.5) gm/dl Hct (40.1-51.0) % MCV (79.0-92.2) fl MCH (25.7-32.2) pg MCHC (32.2-35.5) g/dl RDW Std Deviation (35.1-43.9) fL Plt Count (163-337) K/mm3 MPV (9.4-12.3) fl Neut % (Auto) (34.0-67.9) % Lymph % (Auto) (21.8-53.1) % [place] % (Auto) (5.3-12.2) % Eos % (Auto) (0.8-7.0) Baso % (Auto) (0.1-1.2) % Neut # (Auto) (1.78-5.38) K/mm3 Lymph # (Auto) (1.32-3.57) K/mm3 [place] # (Auto) (0.30-0.82) K/mm3 Eos # (Auto) (0.04-0.54) K/mm3 Baso # (Auto) (0.01-0.08) K/mm3 Manual Slide Review Sodium (136-145) mEq/L Potassium (3.5-5.1) mEq/L Chloride (98-107) mEq/L Carbon Dioxide (21-32) mEq/L Anion Gap (5-15) BUN (7-18) mg/dL Creatinine (0.7-1.3) mg/dL Est Cr Clr Drug Dosing mL/min Estimated GFR (MDRD) (>60) mL/min BUN/Creatinine Ratio (14-18) Glucose (70-99) mg/dL POC Glucose 215 H 191 H 171 H (70-99) mg/dL Uric Acid (3.5-7.2) mg/dL Calcium (8.5-10.1) mg/dL C-Reactive Protein (<1.0) mg/dL NT-Pro-B Natriuret Pep (0-450) pg/mL 03/05/21 03/05/21 03/05/21 Range/Units 06:25 06:25 06:25 WBC 8.45 (4.23-9.07) K/mm3 RBC 3.23 L (4.63-6.08) M/mm3 Hgb 9.4 L (13.7-17.5) gm/dl Hct 29.4 L (40.1-51.0) % MCV 91.0 (79.0-92.2) fl MCH 29.1 (25.7-32.2) pg MCHC 32.0 L (32.2-35.5) g/dl RDW Std Deviation 50.8 H (35.1-43.9) fL Plt Count 112 L (163-337) K/mm3 MPV 11.5 (9.4-12.3) fl Neut % (Auto) 75.4 H (34.0-67.9) % Lymph % (Auto) 7.5 L (21.8-53.1) % [place] % (Auto) 16.3 H (5.3-12.2) % Eos % (Auto) 0.5 L (0.8-7.0) Baso % (Auto) 0.1 (0.1-1.2) % Neut # (Auto) 6.37 H (1.78-5.38) K/mm3 Lymph # (Auto) 0.63 L (1.32-3.57) K/mm3 [place] # (Auto) 1.38 H (0.30-0.82) K/mm3 Eos # (Auto) 0.04 (0.04-0.54) K/mm3 Baso # (Auto) 0.01 (0.01-0.08) K/mm3 Manual Slide Review Abnormal smear Sodium 145 (136-145) mEq/L Potassium 4.5 (3.5-5.1) mEq/L Chloride 110 H (98-107) mEq/L Carbon Dioxide 26 (21-32) mEq/L Anion Gap 13.5 (5-15) BUN 80 H (7-18) mg/dL Creatinine 1.9 H (0.7-1.3) mg/dL Est Cr Clr Drug Dosing 32.33 mL/min Estimated GFR (MDRD) 34 (>60) mL/min BUN/Creatinine Ratio 42.1 H (14-18) Glucose 77 (70-99) mg/dL POC Glucose (70-99) mg/dL Uric Acid (3.5-7.2) mg/dL Calcium 8.2 L (8.5-10.1) mg/dL C-Reactive Protein 12.4 H* (<1.0) mg/dL NT-Pro-B Natriuret Pep (0-450) pg/mL 03/05/21 03/05/21 03/05/21 Range/Units 06:25 06:25 08:41 WBC (4.23-9.07) K/mm3 RBC (4.63-6.08) M/mm3 Hgb (13.7-17.5) gm/dl Hct (40.1-51.0) % MCV (79.0-92.2) fl MCH (25.7-32.2) pg MCHC (32.2-35.5) g/dl RDW Std Deviation (35.1-43.9) fL Plt Count (163-337) K/mm3 MPV (9.4-12.3) fl Neut % (Auto) (34.0-67.9) % Lymph % (Auto) (21.8-53.1) % [place] % (Auto) (5.3-12.2) % Eos % (Auto) (0.8-7.0) Baso % (Auto) (0.1-1.2) % Neut # (Auto) (1.78-5.38) K/mm3 Lymph # (Auto) (1.32-3.57) K/mm3 [place] # (Auto) (0.30-0.82) K/mm3 Eos # (Auto) (0.04-0.54) K/mm3 Baso # (Auto) (0.01-0.08) K/mm3 Manual Slide Review Sodium (136-145) mEq/L Potassium (3.5-5.1) mEq/L Chloride (98-107) mEq/L Carbon Dioxide (21-32) mEq/L Anion Gap (5-15) BUN (7-18) mg/dL Creatinine (0.7-1.3) mg/dL Est Cr Clr Drug Dosing mL/min Estimated GFR (MDRD) (>60) mL/min BUN/Creatinine Ratio (14-18) Glucose (70-99) mg/dL POC Glucose 54 L (70-99) mg/dL Uric Acid 9.8 H (3.5-7.2) mg/dL Calcium (8.5-10.1) mg/dL C-Reactive Protein (<1.0) mg/dL NT-Pro-B Natriuret Pep 7964 H (0-450) pg/mL 03/05/21 03/05/21 Range/Units 09:00 13:00 WBC (4.23-9.07) K/mm3 RBC (4.63-6.08) M/mm3 Hgb (13.7-17.5) gm/dl Hct (40.1-51.0) % MCV (79.0-92.2) fl MCH (25.7-32.2) pg MCHC (32.2-35.5) g/dl RDW Std Deviation (35.1-43.9) fL Plt Count (163-337) K/mm3 MPV (9.4-12.3) fl Neut % (Auto) (34.0-67.9) % Lymph % (Auto) (21.8-53.1) % [place] % (Auto) (5.3-12.2) % Eos % (Auto) (0.8-7.0) Baso % (Auto) (0.1-1.2) % Neut # (Auto) (1.78-5.38) K/mm3 Lymph # (Auto) (1.32-3.57) K/mm3 [place] # (Auto) (0.30-0.82) K/mm3 Eos # (Auto) (0.04-0.54) K/mm3 Baso # (Auto) (0.01-0.08) K/mm3 Manual Slide Review Sodium (136-145) mEq/L Potassium (3.5-5.1) mEq/L Chloride (98-107) mEq/L Carbon Dioxide (21-32) mEq/L Anion Gap (5-15) BUN (7-18) mg/dL Creatinine (0.7-1.3) mg/dL Est Cr Clr Drug Dosing mL/min Estimated GFR (MDRD) (>60) mL/min BUN/Creatinine Ratio (14-18) Glucose (70-99) mg/dL POC Glucose 99 244 H (70-99) mg/dL Uric Acid (3.5-7.2) mg/dL Calcium (8.5-10.1) mg/dL C-Reactive Protein (<1.0) mg/dL NT-Pro-B Natriuret Pep (0-450) pg/mL Levy Results Last 24 Hours: Microbiology 03/04/21 18:20 Gram Stain - Final Sputum - Expectorated 03/03/21 13:20 Blood Culture - Preliminary Blood 03/03/21 13:15 Blood Culture - Preliminary Blood 03/04/21 18:20 Gram Stain - Preliminary Sputum - Expectorated Med Orders - Current: Current Medications Acetaminophen (Acetaminophen 325 Mg Tab) 650 mg PO Q4H PRN PRN Reason: Pain (Mild 1-3)/fever Albuterol/Ipratropium (Albuterol/Ipratropium 3.0-0.5 Mg/3 Ml Neb Soln) 3 ml NEB Q4HRRT [facility] Last Admin: 03/05/21 13:21 Dose: 3 ml Documented by: Apixaban (Apixaban 5 Mg Tab) 5 mg PO BID [facility] Last Admin: 03/05/21 08:36 Dose: 5 mg Documented by: Aspirin (Aspirin 81 Mg Tab.Chew) 81 mg PO Q48H [facility] Last Admin: 03/04/21 09:33 Dose: 81 mg Documented by: Benzonatate (Benzonatate 100 Mg Cap) 200 mg PO BID [facility] Last Admin: 03/05/21 08:35 Dose: 200 mg Documented by: Carvedilol (Carvedilol 12.5 Mg Tab) 25 mg PO BID [facility] Last Admin: 03/05/21 08:35 Dose: 25 mg Documented by: Doxycycline Hyclate (Doxycycline 100 Mg Cap) 100 mg PO BID [facility] Last Admin: 03/05/21 08:35 Dose: 100 mg Documented by: Furosemide (Furosemide 20 Mg Tab) 20 mg PO Q48H [facility] Furosemide (Furosemide 40 Mg Tab) 40 mg PO Q48H [facility] Guaifenesin/Phenylephrine HCl (Guaifenesin/Dextromethorphan 100-10 Mg/5 Ml Soln 5 Ml Cup) 5 ml PO Q4H PRN PRN Reason: Other Last Admin: 03/05/21 14:30 Dose: 5 ml Documented by: Ceftriaxone Sodium 1 gm/ (Sodium Chloride) 100 mls @ 200 mls/hr IV Q24H [facility] Last Admin: 03/05/21 15:42 Dose: 200 mls/hr Documented by: Insulin Glargine (Insulin Glarg,Human.Rec.Analog 100 Unit/Ml) 25 unit SUBCUT DAILY [facility] Last Admin: 03/05/21 09:04 Dose: Not Given Documented by: Insulin Human Lispro (Insulin Lispro 100 Unit/Ml 10 Ml Vial) 0 unit SUBCUT QIDACANDBED [facility]; Protocol Last Admin: 03/05/21 13:12 Dose: 4 unit Documented by: Melatonin (Melatonin 3 Mg Tab) 6 mg PO BEDTIME [facility] Last Admin: 03/04/21 20:26 Dose: 6 mg Documented by: Ondansetron HCl (Ondansetron 4 Mg/2 Ml Sdv) 4 mg IV Q4H PRN PRN Reason: Nausea/Vomiting Simvastatin (Simvastatin 40 Mg Tab) 40 mg PO BEDTIME [facility] Last Admin: 03/04/21 20:26 Dose: 40 mg Documented by: Sodium Chloride (Sodium Chloride 0.9% 10 Ml Syringe) 10 ml FLUSH ASDIRECTED PRN PRN Reason: Keep Vein Open Last Admin: 03/04/21 20:26 Dose: 10 ml Documented by: Spironolactone (Spironolactone 25 Mg Tab) 25 mg PO DAILY [facility] Last Admin: 03/05/21 08:36 Dose: 25 mg Documented by: Discontinued Medications Albuterol/Ipratropium (Albuterol/Ipratropium 3.0-0.5 Mg/3 Ml Neb Soln) 3 ml NEB ONETIME ONE Stop: 03/03/21 13:38 Last Admin: 03/03/21 14:18 Dose: 3 ml Documented by: Furosemide (Furosemide 20 Mg/2 Ml Vial) 20 mg IVPUSH BID [facility] Last Admin: 03/03/21 20:26 Dose: 20 mg Documented by: Furosemide (Furosemide 40 Mg/4 Ml Vial) 40 mg IVPUSH BID [facility] Last Admin: 03/05/21 09:01 Dose: 40 mg Documented by: Ceftriaxone Sodium 2 gm/ (Sodium Chloride) 100 mls @ 200 mls/hr IV ONETIME ONE Stop: 03/03/21 13:27 Last Admin: 03/03/21 13:58 Dose: 200 mls/hr Documented by: Insulin Glargine (Insulin Glarg,Human.Rec.Analog 100 Unit/Ml) 20 unit SUBCUT ONETIME ONE Stop: 03/05/21 09:01 Last Admin: 03/05/21 09:06 Dose: 20 units Documented by: - Exam Quality Assessment: Supplemental Oxygen General: Alert, Oriented HEENT: Pupils Equal, Pupils Reactive, EOMI, Mucous Membr. Moist/Lares Neck: Supple Lungs: Clear to Auscultation, Normal Respiratory Effort Cardiovascular: Regular Rate, Regular Rhythm GI/Abdominal Exam: Normal Bowel Sounds, Soft, Non-Tender, No Organomegaly, No Distention, No Abnormal Bruit, No Mass, Pelvis Stable (Male) Exam: No Hernia, Normal Inspection, Normal Prostate, Circumcised Back Exam: Normal Inspection, Full Range of Motion Extremities: Normal Inspection, Normal Range of Motion, Non-Tender, No Pedal Edema, Normal Capillary Refill Skin: Warm, Dry, Intact Wound/Incisions: Healing Well Neurological: No New Focal Deficit Psy/Mental Status: Alert, Normal Affect, Normal Mood - Patient Data Lab Results Last 24 hrs: Laboratory Results - last 24 hr 03/04/21 03/04/21 03/04/21 Range/Units 14:56 18:19 21:37 WBC (4.23-9.07) K/mm3 RBC (4.63-6.08) M/mm3 Hgb (13.7-17.5) gm/dl Hct (40.1-51.0) % MCV (79.0-92.2) fl MCH (25.7-32.2) pg MCHC (32.2-35.5) g/dl RDW Std Deviation (35.1-43.9) fL Plt Count (163-337) K/mm3 MPV (9.4-12.3) fl Neut % (Auto) (34.0-67.9) % Lymph % (Auto) (21.8-53.1) % [place] % (Auto) (5.3-12.2) % Eos % (Auto) (0.8-7.0) Baso % (Auto) (0.1-1.2) % Neut # (Auto) (1.78-5.38) K/mm3 Lymph # (Auto) (1.32-3.57) K/mm3 [place] # (Auto) (0.30-0.82) K/mm3 Eos # (Auto) (0.04-0.54) K/mm3 Baso # (Auto) (0.01-0.08) K/mm3 Manual Slide Review Sodium (136-145) mEq/L Potassium (3.5-5.1) mEq/L Chloride (98-107) mEq/L Carbon Dioxide (21-32) mEq/L Anion Gap (5-15) BUN (7-18) mg/dL Creatinine (0.7-1.3) mg/dL Est Cr Clr Drug Dosing mL/min Estimated GFR (MDRD) (>60) mL/min BUN/Creatinine Ratio (14-18) Glucose (70-99) mg/dL POC Glucose 215 H 191 H 171 H (70-99) mg/dL Uric Acid (3.5-7.2) mg/dL Calcium (8.5-10.1) mg/dL C-Reactive Protein (<1.0) mg/dL NT-Pro-B Natriuret Pep (0-450) pg/mL 03/05/21 03/05/21 03/05/21 Range/Units 06:25 06:25 06:25 WBC 8.45 (4.23-9.07) K/mm3 RBC 3.23 L (4.63-6.08) M/mm3 Hgb 9.4 L (13.7-17.5) gm/dl Hct 29.4 L (40.1-51.0) % MCV 91.0 (79.0-92.2) fl MCH 29.1 (25.7-32.2) pg MCHC 32.0 L (32.2-35.5) g/dl RDW Std Deviation 50.8 H (35.1-43.9) fL Plt Count 112 L (163-337) K/mm3 MPV 11.5 (9.4-12.3) fl Neut % (Auto) 75.4 H (34.0-67.9) % Lymph % (Auto) 7.5 L (21.8-53.1) % [place] % (Auto) 16.3 H (5.3-12.2) % Eos % (Auto) 0.5 L (0.8-7.0) Baso % (Auto) 0.1 (0.1-1.2) % Neut # (Auto) 6.37 H (1.78-5.38) K/mm3 Lymph # (Auto) 0.63 L (1.32-3.57) K/mm3 [place] # (Auto) 1.38 H (0.30-0.82) K/mm3 Eos # (Auto) 0.04 (0.04-0.54) K/mm3 Baso # (Auto) 0.01 (0.01-0.08) K/mm3 Manual Slide Review Abnormal smear Sodium 145 (136-145) mEq/L Potassium 4.5 (3.5-5.1) mEq/L Chloride 110 H (98-107) mEq/L Carbon Dioxide 26 (21-32) mEq/L Anion Gap 13.5 (5-15) BUN 80 H (7-18) mg/dL Creatinine 1.9 H (0.7-1.3) mg/dL Est Cr Clr Drug Dosing 32.33 mL/min Estimated GFR (MDRD) 34 (>60) mL/min BUN/Creatinine Ratio 42.1 H (14-18) Glucose 77 (70-99) mg/dL POC Glucose (70-99) mg/dL Uric Acid (3.5-7.2) mg/dL Calcium 8.2 L (8.5-10.1) mg/dL C-Reactive Protein 12.4 H* (<1.0) mg/dL NT-Pro-B Natriuret Pep (0-450) pg/mL 03/05/21 03/05/21 03/05/21 Range/Units 06:25 06:25 08:41 WBC (4.23-9.07) K/mm3 RBC (4.63-6.08) M/mm3 Hgb (13.7-17.5) gm/dl Hct (40.1-51.0) % MCV (79.0-92.2) fl MCH (25.7-32.2) pg MCHC (32.2-35.5) g/dl RDW Std Deviation (35.1-43.9) fL Plt Count (163-337) K/mm3 MPV (9.4-12.3) fl Neut % (Auto) (34.0-67.9) % Lymph % (Auto) (21.8-53.1) % [place] % (Auto) (5.3-12.2) % Eos % (Auto) (0.8-7.0) Baso % (Auto) (0.1-1.2) % Neut # (Auto) (1.78-5.38) K/mm3 Lymph # (Auto) (1.32-3.57) K/mm3 [place] # (Auto) (0.30-0.82) K/mm3 Eos # (Auto) (0.04-0.54) K/mm3 Baso # (Auto) (0.01-0.08) K/mm3 Manual Slide Review Sodium (136-145) mEq/L Potassium (3.5-5.1) mEq/L Chloride (98-107) mEq/L Carbon Dioxide (21-32) mEq/L Anion Gap (5-15) BUN (7-18) mg/dL Creatinine (0.7-1.3) mg/dL Est Cr Clr Drug Dosing mL/min Estimated GFR (MDRD) (>60) mL/min BUN/Creatinine Ratio (14-18) Glucose (70-99) mg/dL POC Glucose 54 L (70-99) mg/dL Uric Acid 9.8 H (3.5-7.2) mg/dL Calcium (8.5-10.1) mg/dL C-Reactive Protein (<1.0) mg/dL NT-Pro-B Natriuret Pep 7964 H (0-450) pg/mL 03/05/21 03/05/21 Range/Units 09:00 13:00 WBC (4.23-9.07) K/mm3 RBC (4.63-6.08) M/mm3 Hgb (13.7-17.5) gm/dl Hct (40.1-51.0) % MCV (79.0-92.2) fl MCH (25.7-32.2) pg MCHC (32.2-35.5) g/dl RDW Std Deviation (35.1-43.9) fL Plt Count (163-337) K/mm3 MPV (9.4-12.3) fl Neut % (Auto) (34.0-67.9) % Lymph % (Auto) (21.8-53.1) % [place] % (Auto) (5.3-12.2) % Eos % (Auto) (0.8-7.0) Baso % (Auto) (0.1-1.2) % Neut # (Auto) (1.78-5.38) K/mm3 Lymph # (Auto) (1.32-3.57) K/mm3 [place] # (Auto) (0.30-0.82) K/mm3 Eos # (Auto) (0.04-0.54) K/mm3 Baso # (Auto) (0.01-0.08) K/mm3 Manual Slide Review Sodium (136-145) mEq/L Potassium (3.5-5.1) mEq/L Chloride (98-107) mEq/L Carbon Dioxide (21-32) mEq/L Anion Gap (5-15) BUN (7-18) mg/dL Creatinine (0.7-1.3) mg/dL Est Cr Clr Drug Dosing mL/min Estimated GFR (MDRD) (>60) mL/min BUN/Creatinine Ratio (14-18) Glucose (70-99) mg/dL POC Glucose 99 244 H (70-99) mg/dL Uric Acid (3.5-7.2) mg/dL Calcium (8.5-10.1) mg/dL C-Reactive Protein (<1.0) mg/dL NT-Pro-B Natriuret Pep (0-450) pg/mL Result Diagrams: 03/05/21 06:25 03/05/21 06:25 Levy Results Last 24 hrs: Microbiology 03/04/21 18:20 Gram Stain - Final Sputum - Expectorated 03/03/21 13:20 Blood Culture - Preliminary Blood 03/03/21 13:15 Blood Culture - Preliminary Blood 03/04/21 18:20 Gram Stain - Preliminary Sputum - Expectorated Sepsis Event Note - Evaluation Sepsis Screening Result: No Definite Risk - Focused Exam Vital Signs: Vital Signs Temp Pulse Resp BP BP Pulse Ox Pulse Ox 03/05/21 14:24 36.4 C 20 127/48 L 92 L 03/05/21 13:21 93 L 03/05/21 09:26 93 L 03/05/21 09:14 96 03/05/21 09:00 36.1 C 20 132/54 L 93 L 03/05/21 08:35 62 132/54 L 03/05/21 06:00 63 94 L 03/05/21 05:13 93 L 03/05/21 05:00 59 L 92 L - Problem List & Annotations (1) Anemia SNOMED Code(s): 748952927 Code(s): D64.9 - ANEMIA, UNSPECIFIED Status: Acute Priority: High Current Visit: Yes Onset Date: ~03/03/21 Qualifiers: Anemia type: unspecified type Qualified Code(s): D64.9 - Anemia, unspecified (2) Pneumonia SNOMED Code(s): 303482901 Code(s): J18.9 - PNEUMONIA, UNSPECIFIED ORGANISM Status: Acute Priority: High Current Visit: Yes Onset Date: ~03/03/21 Qualifiers: Pneumonia type: due to unspecified organism Laterality: bilateral Lung location: lower lobe of lung Qualified Code(s): J18.9 - Pneumonia, unspecified organism (3) CHF (congestive heart failure) SNOMED Code(s): 54362942 Code(s): I50.9 - HEART FAILURE, UNSPECIFIED Status: Chronic Priority: High Current Visit: Yes Onset Date: ~03/03/21 Qualifiers: Heart failure type: biventricular Qualified Code(s): I50.82 - Biventricular heart failure (4) Renal insufficiency SNOMED Code(s): 401661428, 494013293 Code(s): N28.9 - DISORDER OF KIDNEY AND URETER, UNSPECIFIED Status: Chronic Priority: Medium Current Visit: Yes Onset Date: ~03/05/21 (5) Type 2 diabetes mellitus SNOMED Code(s): 43981858 Code(s): E11.9 - TYPE 2 DIABETES MELLITUS WITHOUT COMPLICATIONS Status: Chronic Priority: Medium Current Visit: Yes Onset Date: ~03/03/21 Qualifiers: Diabetes mellitus halfway insulin use: with middle or intermediate school principal use Chronic kidney disease stage: stage 3 (moderate) - Problem List Review Problem List Initiated/Reviewed/Updated: Yes - My Orders Last 24 Hours: My Active Orders 03/04/21 18:20 GRAM STAIN [RM] Routine RESPIRATORY CULT [MREF] Routine 03/05/21 09:00 Benzonatate [Tessalon Perles] 200 mg PO BID 03/05/21 11:37 Supplement (Dietary) [Dietary Supplements] [RC] TIDMEALS 03/05/21 13:37 Chest 2V [CR] Routine 03/05/21 17:00 POC Glucose [Blood Glucose Check, Bedside] [RC] BIDMEALS 03/06/21 06:36 BASIC METABOLIC PANEL,BMP [CHEM] DAILY 03/06/21 09:00 Furosemide [Lasix] 20 mg PO Q48H 03/07/21 06:36 BASIC METABOLIC PANEL,BMP [CHEM] DAILY 03/07/21 09:00 Furosemide [Lasix] 40 mg PO Q48H - Plan Plan:: Assessment This is a 85M with PMhx of atrial fibrillation (on eliquis); hx of CAD/HTN, suspected undiagnosed CHF presenting for evaluation of SOB, cough, and generalized weakness. He presented to the ED and was hypoxic requiring 2-3 liters supplemental oxygen. He stated his SOB improved with nebulizer. He underwent CT Chest which showed small bilateral pleural effusion, increased density within lower lung rice, right lower lung nodule (Repeat CT recommended in 6-9 months). He was given ceftriaxone and admitted for further evaluation. 1. Acute hypoxia secondary to CAP 2. Hx of CAD/HTN 3. Hx of atrial fibrillation on eliquis 4. Suspected CHF exacerbation; baseline EF unknown 5. Thrombocytopenia 6. Hx o Type II DM 7. ANJANA/CKD Stage III (anticipate renal function to improve with diuresis/improved cardiac output/renal perfusion pressure) Plan -admit to inpatient -check procal -antibiotics: doxycycline +ceftriaxone -start IV Lasix -check UA -hold losartan -tele -daily weight -I&O -tessalon -RT consult -scheduled duoneb -echo Code-DNR/DNi DVT px-eliquis 03/04/2021 Assessment: MARY ALICE is an 85yo male with PMH of a.fib, CAD/Htn, T2DM, and suspected CHF who presented for evaluation of SOB, cough and weakness. Following CT chest, diagnosis of CAP was made and ceftriaxone/doxycycline was administered. Today, he continues to cough and requires oxygen, but was able to sleep well and was alert and interactive. 1. acute hypoxia secondary to CAP 2. acute exacerbation of CHF secondary to CAP 3. Hx of CAD/Htn, a. fib 4. ANJANA/CKD Stage III 5. Anemia 6. Hx of type II DM Plan - continue ceftriaxone/doxycycline - continue supplemental O2 - continue to monitor trends in CBC, BMP, BNP, CRP and vital signs - continue IV lasix - telemetry - continue to monitor daily weight, I & O - test for fecal occult blood, monitor for melena/hematochezia - continue insulin regimen - plan to follow up with [facility] 03/10/21, CHF clinic at [facility] reviewed [facility] 03/05/21 afebrile vss slept well eating fair. cogh loose and productive. weakness better. -[id number] on is/os p.e. ronchii loose air entry good. cor ir/ir 80s sats stable 1 liter abd benign neuro aox4 . chest xray improved bilateral ll pneumonia// improved left pleural effusion and chf lab pending. assess: pneumonia improved. chf improved afib rate controlled. renal function improved. creatanine 1.9 this am. appetite improved anemia appears stable clinically check Hemoccult on xaralto full dose. plan cont current treatments / nebs / increase activity/rehab. wean o2 as tolerated. cardiology follow up as o.p. boh
[2021-03-05] MEDS: Simvastatin 40 MG Tab PO SCH (20:13)
[2021-03-05] MEDS: Melatonin 3 MG Tab PO SCH (20:14)
[2021-03-06] MEDS: Albuterol/Ipratropium 3.0-0.5 MG/3 ML Neb Soln NEB SCH ×6 (02:25→21:06)
[2021-03-06] MEDS: Insulin Lispro 100 UNIT/ML 10 ML Vial SUBCUT SCH ×4 (06:18→21:24)
[2021-03-06] MEDS: Doxycycline 100 MG Cap PO SCH ×2 (08:54→20:53)
[2021-03-06] MEDS: Benzonatate 100 MG Cap PO SCH ×2 (08:54→20:52)
[2021-03-06] MEDS: Spironolactone 25 MG Tab PO SCH (08:54)
[2021-03-06] MEDS: Carvedilol 12.5 MG Tab PO SCH ×2 (08:54→20:52)
[2021-03-06] MEDS: Insulin Glarg,Human.Rec.Analog 100 Unit/ML SUBCUT SCH (08:56)
[2021-03-06] MEDS ORDERED: Furosemide 20 MG Tab PO SCH (09:00)
--- NOTE | 2021-03-06 10:00 | CR ---
Chest: Frontal and lateral views of the chest were obtained. Comparison: Prior chest CT study of 03/03/21 and chest x-ray 03/02/21. Small left-sided pleural effusion is noted. Slight increasing right-sided pleural effusion is seen from prior exams. Heart is slightly enlarged. 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 Increased density is noted within both lung bases, worse on the right side raising the possibility of pneumonia. Pulmonary vessels also appear to be minimally congested. Osteopenia is noted. No acute osseous abnormality is seen. Impression: 1. Slight increasing right-sided pleural effusion. Small left-sided pleural effusion is noted. Pulmonary vessels are felt to be mildly congested. 2. Increased density within both lung bases, worse on the right side which is possibly due to areas of pneumonia. 3. Other findings as noted above which are stable. Diagnostic code #3
[2021-03-06] MEDS: Apixaban 5 MG Tab PO SCH ×2 (12:41→20:53)
[2021-03-06] MEDS: Aspirin 81 MG Tab.Chew PO SCH (12:41)
[2021-03-06] MEDS: cefTRIAXone 1 GM in Sodium Chloride 0.9% 100 ML IV SCH (16:32)
[2021-03-06] MEDS: guaiFENesin/Dextromethorphan 100-10 MG/5 ML Soln 5 ML Cup PO PRN ×2 (16:32→20:53)
[2021-03-06] MEDS: Melatonin 3 MG Tab PO SCH (20:53)
[2021-03-06] MEDS: Simvastatin 40 MG Tab PO SCH (20:53)
[2021-03-07] MEDS: Albuterol/Ipratropium 3.0-0.5 MG/3 ML Neb Soln NEB SCH ×6 (02:18→21:08)
[2021-03-07] MEDS: guaiFENesin/Dextromethorphan 100-10 MG/5 ML Soln 5 ML Cup PO PRN ×3 (03:51→19:57)
--- NOTE | 2021-03-07 08:41 | PCM.PN ---
- General Info Date of Service: 03/06/21 Admission Dx/Problem (Free Text): Admission Diagnosis/Problem Admission Diagnosis/Problem Congestive heart failure CAP CHF Subjective Update: 03/05/21 afebrile vss slept well eating fair. cogh loose and productive. wea kness better. -985 on is/os p.e. ronchii loose air entry good. cor ir/ir 80s sats stable 1 liter abd benign neuro aox4 . chest xray improved bilateral ll pneumonia// improved left pleural effusion and chf lab pending. assess: pneumonia improved. chf improved afib rate controlled. renal function improved. creatanine 1.9 this am. appetite improved anemia appears stable clinically check Hemoccult on xaralto full dose. plan cont current treatments / nebs / increase activity/rehab. wean o2 as tolerated. cardiology follow up as o.p. boh 03/06/21 afebrile vss , on o2 1 liter sats 90-96%. hr drops down to 50s despite p acemaker,afib appetite better //loose prod. cough on nebs q 6 hours,little walking up to chair and b.r. weakness evident and p.t involved. chest xray cont rt and left effusions (small) and increased vasc and arturo b lines. basiler and rml infiltrates and fibrosis. lungs ronchii improving and better air exch. no rales / decreased b.s still evident. cor : rate 70-80 afib no murm. no s3/s4 abd benign neuro sharp.// conversive // normal exam m.s: normal with arthritis ext. plus one pitting edema. lab bnp not obtained last one still [id number] from [id number]. good creat 1.9l /////ytes good hgn decreased 9.2 with positive hemmoccult and hx of epistaxis recurrent (denies melana). stopped asa and cont anticoagualation sec to afib. 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 low alb : poor appetite x 2 months and taking nutrition shakes 3 x day . weakness improving slowly . chf may need eval of pacemaker sec to lower h.r than expected. cont lasix iv today and recheck bnp . added losartin back and tolerating . decreased coreg sec. to hypotension (mild) added spironolactone. ? half-way convertion to entresto e.f 35 % living situation being discussed with family . 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 renal insuff not as bad creat improved 1.9 . plan cont current treatments and start dc plans for possible tues.w end dc. boh Functional Status: Reports: Pain Controlled - Review of Systems General: Reports: No Symptoms, Weakness, Fatigue. Denies: Fever HEENT: Reports: No Symptoms Pulmonary: Reports: No Symptoms, Shortness of Breath, Cough. Denies: Wheezing Cardiovascular: Reports: No Symptoms, Dyspnea on Exertion, Edema, Lightheadedness Gastrointestinal: Reports: No Symptoms Genitourinary: Reports: No Symptoms Musculoskeletal: Reports: No Symptoms Skin: Reports: No Symptoms Neurological: Reports: No Symptoms Psychiatric: Reports: No Symptoms - Patient Data Vitals - Most Recent: Last Vital Signs Temp 36.2 C 03/07/21 03:49 Pulse 60 03/07/21 04:00 Resp 20 03/07/21 03:49 BP 126/58 L 03/07/21 03:49 Pulse Ox 94 L 03/07/21 06:16 Weight - Most Recent: 83.28 kg I&O - Last 24 Hours: Intake & Output 03/06/21 03/07/21 03/07/21 22:59 06:59 14:59 Intake Total 1850 Output Total 475 450 Balance 1375 -450 Lab Results Last 24 Hours: Laboratory Results - last 24 hr 03/06/21 03/06/21 03/06/21 Range/Units 04:48 04:48 11:46 WBC 8.34 (4.23-9.07) K/mm3 RBC 3.31 L (4.63-6.08) M/mm3 Hgb 9.6 L (13.7-17.5) gm/dl Hct 30.2 L (40.1-51.0) % MCV 91.2 (79.0-92.2) fl MCH 29.0 (25.7-32.2) pg MCHC 31.8 L (32.2-35.5) g/dl RDW Std Deviation 50.9 H (35.1-43.9) fL Plt Count 124 L (163-337) K/mm3 MPV 12.2 (9.4-12.3) fl Neut % (Auto) 72.8 H (34.0-67.9) % Lymph % (Auto) 8.5 L (21.8-53.1) % [place] % (Auto) 17.1 H (5.3-12.2) % Eos % (Auto) 0.6 L (0.8-7.0) Baso % (Auto) 0.4 (0.1-1.2) % Neut # (Auto) 6.07 H (1.78-5.38) K/mm3 Lymph # (Auto) 0.71 L (1.32-3.57) K/mm3 [place] # (Auto) 1.43 H (0.30-0.82) K/mm3 Eos # (Auto) 0.05 (0.04-0.54) K/mm3 Baso # (Auto) 0.03 (0.01-0.08) K/mm3 Manual Slide Review Abnormal smear Sodium (136-145) mEq/L Potassium (3.5-5.1) mEq/L Chloride (98-107) mEq/L Carbon Dioxide (21-32) mEq/L Anion Gap (5-15) BUN (7-18) mg/dL Creatinine (0.7-1.3) mg/dL Est Cr Clr Drug Dosing mL/min Estimated GFR (MDRD) (>60) mL/min BUN/Creatinine Ratio (14-18) Glucose (70-99) mg/dL POC Glucose 269 H (70-99) mg/dL Calcium (8.5-10.1) mg/dL Iron 16 L (65-175) ug/dL TIBC 183 (100-400) ug/dL % Saturation 9 L (20-55) % Transferrin 146 L (202-364) mg/dL 03/06/21 03/06/21 03/07/21 Range/Units 17:54 21:16 05:31 WBC (4.23-9.07) K/mm3 RBC (4.63-6.08) M/mm3 Hgb (13.7-17.5) gm/dl Hct (40.1-51.0) % MCV (79.0-92.2) fl MCH (25.7-32.2) pg MCHC (32.2-35.5) g/dl RDW Std Deviation (35.1-43.9) fL Plt Count (163-337) K/mm3 MPV (9.4-12.3) fl Neut % (Auto) (34.0-67.9) % Lymph % (Auto) (21.8-53.1) % [place] % (Auto) (5.3-12.2) % Eos % (Auto) (0.8-7.0) Baso % (Auto) (0.1-1.2) % Neut # (Auto) (1.78-5.38) K/mm3 Lymph # (Auto) (1.32-3.57) K/mm3 [place] # (Auto) (0.30-0.82) K/mm3 Eos # (Auto) (0.04-0.54) K/mm3 Baso # (Auto) (0.01-0.08) K/mm3 Manual Slide Review Sodium 144 (136-145) mEq/L Potassium 4.6 (3.5-5.1) mEq/L Chloride 108 H (98-107) mEq/L Carbon Dioxide 28 (21-32) mEq/L Anion Gap 12.6 (5-15) BUN 59 H (7-18) mg/dL Creatinine 1.4 H (0.7-1.3) mg/dL Est Cr Clr Drug Dosing 43.88 mL/min Estimated GFR (MDRD) 48 (>60) mL/min BUN/Creatinine Ratio 42.1 H (14-18) Glucose 160 H (70-99) mg/dL POC Glucose 231 H 251 H (70-99) mg/dL Calcium 8.1 L (8.5-10.1) mg/dL Iron (65-175) ug/dL TIBC (100-400) ug/dL % Saturation (20-55) % Transferrin (202-364) mg/dL 03/07/21 Range/Units 05:31 WBC (4.23-9.07) K/mm3 RBC (4.63-6.08) M/mm3 Hgb (13.7-17.5) gm/dl Hct (40.1-51.0) % MCV (79.0-92.2) fl MCH (25.7-32.2) pg MCHC (32.2-35.5) g/dl RDW Std Deviation (35.1-43.9) fL Plt Count (163-337) K/mm3 MPV (9.4-12.3) fl Neut % (Auto) (34.0-67.9) % Lymph % (Auto) (21.8-53.1) % [place] % (Auto) (5.3-12.2) % Eos % (Auto) (0.8-7.0) Baso % (Auto) (0.1-1.2) % Neut # (Auto) (1.78-5.38) K/mm3 Lymph # (Auto) (1.32-3.57) K/mm3 [place] # (Auto) (0.30-0.82) K/mm3 Eos # (Auto) (0.04-0.54) K/mm3 Baso # (Auto) (0.01-0.08) K/mm3 Manual Slide Review Sodium (136-145) mEq/L Potassium (3.5-5.1) mEq/L Chloride (98-107) mEq/L Carbon Dioxide (21-32) mEq/L Anion Gap (5-15) BUN (7-18) mg/dL Creatinine (0.7-1.3) mg/dL Est Cr Clr Drug Dosing mL/min Estimated GFR (MDRD) (>60) mL/min BUN/Creatinine Ratio (14-18) Glucose (70-99) mg/dL POC Glucose 153 H (70-99) mg/dL Calcium (8.5-10.1) mg/dL Iron (65-175) ug/dL TIBC (100-400) ug/dL % Saturation (20-55) % Transferrin (202-364) mg/dL Levy Results Last 24 Hours: Microbiology 03/04/21 18:20 Respiratory Culture - Preliminary Sputum - Expectorated Gram Stain - Final Med Orders - Current: Current Medications Acetaminophen (Acetaminophen 325 Mg Tab) 650 mg PO Q4H PRN PRN Reason: Pain (Mild 1-3)/fever Albuterol/Ipratropium (Albuterol/Ipratropium 3.0-0.5 Mg/3 Ml Neb Soln) 3 ml NEB Q4HRRT AIDA Last Admin: 03/07/21 06:16 Dose: 3 ml Documented by: Apixaban (Apixaban 5 Mg Tab) 5 mg PO BID [facility] Last Admin: 03/06/21 20:53 Dose: 5 mg Documented by: Benzonatate (Benzonatate 100 Mg Cap) 200 mg PO BID [facility] Last Admin: 03/06/21 20:52 Dose: 200 mg Documented by: Carvedilol (Carvedilol 12.5 Mg Tab) 12.5 mg PO BID [facility] Last Admin: 03/06/21 20:52 Dose: 12.5 mg Documented by: Doxycycline Hyclate (Doxycycline 100 Mg Cap) 100 mg PO BID [facility] Last Admin: 03/06/21 20:53 Dose: 100 mg Documented by: Furosemide (Furosemide 20 Mg Tab) 20 mg PO Q48H [facility] Last Admin: 03/06/21 08:54 Dose: 20 mg Documented by: Furosemide (Furosemide 40 Mg Tab) 40 mg PO Q48H [facility] Guaifenesin/Phenylephrine HCl (Guaifenesin/Dextromethorphan 100-10 Mg/5 Ml Soln 5 Ml Cup) 5 ml PO Q4H PRN PRN Reason: Other Last Admin: 03/07/21 03:51 Dose: 5 ml Documented by: Insulin Glargine (Insulin Glarg,Human.Rec.Analog 100 Unit/Ml) 25 unit SUBCUT DAILY [facility] Last Admin: 03/06/21 08:56 Dose: 25 units Documented by: Insulin Human Lispro (Insulin Lispro 100 Unit/Ml 10 Ml Vial) 0 unit SUBCUT QIDACANDBED [facility]; Protocol Last Admin: 03/06/21 21:24 Dose: Not Given Documented by: Losartan Potassium (Losartan 25 Mg Tab) 12.5 mg PO DAILY [facility] Melatonin (Melatonin 3 Mg Tab) 6 mg PO BEDTIME [facility] Last Admin: 03/06/21 20:53 Dose: 6 mg Documented by: Ondansetron HCl (Ondansetron 4 Mg/2 Ml Sdv) 4 mg IV Q4H PRN PRN Reason: Nausea/Vomiting Simvastatin (Simvastatin 40 Mg Tab) 40 mg PO BEDTIME [facility] Last Admin: 03/06/21 20:53 Dose: 40 mg Documented by: Sodium Chloride (Sodium Chloride 0.9% 10 Ml Syringe) 10 ml FLUSH ASDIRECTED PRN PRN Reason: Keep Vein Open Last Admin: 03/04/21 20:26 Dose: 10 ml Documented by: Spironolactone (Spironolactone 25 Mg Tab) 25 mg PO DAILY [facility] Last Admin: 03/06/21 08:54 Dose: 25 mg Documented by: Discontinued Medications Albuterol/Ipratropium (Albuterol/Ipratropium 3.0-0.5 Mg/3 Ml Neb Soln) 3 ml NEB ONETIME ONE Stop: 03/03/21 13:38 Last Admin: 03/03/21 14:18 Dose: 3 ml Documented by: Aspirin (Aspirin 81 Mg Tab.Chew) 81 mg PO Q48H [facility] Last Admin: 03/06/21 12:41 Dose: 81 mg Documented by: Carvedilol (Carvedilol 12.5 Mg Tab) 25 mg PO BID [facility] Last Admin: 03/06/21 08:54 Dose: 25 mg Documented by: Furosemide (Furosemide 20 Mg/2 Ml Vial) 20 mg IVPUSH BID [facility] Last Admin: 03/03/21 20:26 Dose: 20 mg Documented by: Furosemide (Furosemide 40 Mg/4 Ml Vial) 40 mg IVPUSH BID [facility] Last Admin: 03/05/21 09:01 Dose: 40 mg Documented by: Ceftriaxone Sodium 2 gm/ (Sodium Chloride) 100 mls @ 200 mls/hr IV ONETIME ONE Stop: 03/03/21 13:27 Last Admin: 03/03/21 13:58 Dose: 200 mls/hr Documented by: Ceftriaxone Sodium 1 gm/ (Sodium Chloride) 100 mls @ 200 mls/hr IV Q24H [facility] Last Admin: 03/06/21 16:32 Dose: 200 mls/hr Documented by: Insulin Glargine (Insulin Glarg,Human.Rec.Analog 100 Unit/Ml) 20 unit SUBCUT ONETIME ONE Stop: 03/05/21 09:01 Last Admin: 03/05/21 09:06 Dose: 20 units Documented by: - Exam Quality Assessment: Supplemental Oxygen General: Alert, Oriented HEENT: Pupils Equal, Pupils Reactive, EOMI, Mucous Membr. Moist/Vista Neck: Supple Lungs: Clear to Auscultation, Normal Respiratory Effort, Decreased Breath Sounds, Rhonchi. No: Crackles, Rales, Wheezing Cardiovascular: Regular Rate, Regular Rhythm, Irregular Rhythm. No: Gallops GI/Abdominal Exam: Normal Bowel Sounds, Soft, Non-Tender, No Organomegaly, No Distention, No Abnormal Bruit, No Mass, Pelvis Stable (Male) Exam: No Hernia, Normal Inspection, Deferred. No: Normal Prostate, Circumcised Back Exam: Normal Inspection, Full Range of Motion Extremities: Normal Inspection, Normal Range of Motion, Non-Tender, No Pedal Edema, Normal Capillary Refill Skin: Warm, Dry, Intact Wound/Incisions: Healing Well Neurological: No New Focal Deficit, Normal Speech Psy/Mental Status: Alert, Normal Affect, Normal Mood - Patient Data Lab Results Last 24 hrs: Laboratory Results - last 24 hr 03/06/21 03/06/21 03/06/21 Range/Units 04:48 04:48 11:46 WBC 8.34 (4.23-9.07) K/mm3 RBC 3.31 L (4.63-6.08) M/mm3 Hgb 9.6 L (13.7-17.5) gm/dl Hct 30.2 L (40.1-51.0) % MCV 91.2 (79.0-92.2) fl MCH 29.0 (25.7-32.2) pg MCHC 31.8 L (32.2-35.5) g/dl RDW Std Deviation 50.9 H (35.1-43.9) fL Plt Count 124 L (163-337) K/mm3 MPV 12.2 (9.4-12.3) fl Neut % (Auto) 72.8 H (34.0-67.9) % Lymph % (Auto) 8.5 L (21.8-53.1) % [place] % (Auto) 17.1 H (5.3-12.2) % Eos % (Auto) 0.6 L (0.8-7.0) Baso % (Auto) 0.4 (0.1-1.2) % Neut # (Auto) 6.07 H (1.78-5.38) K/mm3 Lymph # (Auto) 0.71 L (1.32-3.57) K/mm3 [place] # (Auto) 1.43 H (0.30-0.82) K/mm3 Eos # (Auto) 0.05 (0.04-0.54) K/mm3 Baso # (Auto) 0.03 (0.01-0.08) K/mm3 Manual Slide Review Abnormal smear Sodium (136-145) mEq/L Potassium (3.5-5.1) mEq/L Chloride (98-107) mEq/L Carbon Dioxide (21-32) mEq/L Anion Gap (5-15) BUN (7-18) mg/dL Creatinine (0.7-1.3) mg/dL Est Cr Clr Drug Dosing mL/min Estimated GFR (MDRD) (>60) mL/min BUN/Creatinine Ratio (14-18) Glucose (70-99) mg/dL POC Glucose 269 H (70-99) mg/dL Calcium (8.5-10.1) mg/dL Iron 16 L (65-175) ug/dL TIBC 183 (100-400) ug/dL % Saturation 9 L (20-55) % Transferrin 146 L (202-364) mg/dL 03/06/21 03/06/21 03/07/21 Range/Units 17:54 21:16 05:31 WBC (4.23-9.07) K/mm3 RBC (4.63-6.08) M/mm3 Hgb (13.7-17.5) gm/dl Hct (40.1-51.0) % MCV (79.0-92.2) fl MCH (25.7-32.2) pg MCHC (32.2-35.5) g/dl RDW Std Deviation (35.1-43.9) fL Plt Count (163-337) K/mm3 MPV (9.4-12.3) fl Neut % (Auto) (34.0-67.9) % Lymph % (Auto) (21.8-53.1) % [place] % (Auto) (5.3-12.2) % Eos % (Auto) (0.8-7.0) Baso % (Auto) (0.1-1.2) % Neut # (Auto) (1.78-5.38) K/mm3 Lymph # (Auto) (1.32-3.57) K/mm3 [place] # (Auto) (0.30-0.82) K/mm3 Eos # (Auto) (0.04-0.54) K/mm3 Baso # (Auto) (0.01-0.08) K/mm3 Manual Slide Review Sodium 144 (136-145) mEq/L Potassium 4.6 (3.5-5.1) mEq/L Chloride 108 H (98-107) mEq/L Carbon Dioxide 28 (21-32) mEq/L Anion Gap 12.6 (5-15) BUN 59 H (7-18) mg/dL Creatinine 1.4 H (0.7-1.3) mg/dL Est Cr Clr Drug Dosing 43.88 mL/min Estimated GFR (MDRD) 48 (>60) mL/min BUN/Creatinine Ratio 42.1 H (14-18) Glucose 160 H (70-99) mg/dL POC Glucose 231 H 251 H (70-99) mg/dL Calcium 8.1 L (8.5-10.1) mg/dL Iron (65-175) ug/dL TIBC (100-400) ug/dL % Saturation (20-55) % Transferrin (202-364) mg/dL 03/07/21 Range/Units 05:31 WBC (4.23-9.07) K/mm3 RBC (4.63-6.08) M/mm3 Hgb (13.7-17.5) gm/dl Hct (40.1-51.0) % MCV (79.0-92.2) fl MCH (25.7-32.2) pg MCHC (32.2-35.5) g/dl RDW Std Deviation (35.1-43.9) fL Plt Count (163-337) K/mm3 MPV (9.4-12.3) fl Neut % (Auto) (34.0-67.9) % Lymph % (Auto) (21.8-53.1) % [place] % (Auto) (5.3-12.2) % Eos % (Auto) (0.8-7.0) Baso % (Auto) (0.1-1.2) % Neut # (Auto) (1.78-5.38) K/mm3 Lymph # (Auto) (1.32-3.57) K/mm3 [place] # (Auto) (0.30-0.82) K/mm3 Eos # (Auto) (0.04-0.54) K/mm3 Baso # (Auto) (0.01-0.08) K/mm3 Manual Slide Review Sodium (136-145) mEq/L Potassium (3.5-5.1) mEq/L Chloride (98-107) mEq/L Carbon Dioxide (21-32) mEq/L Anion Gap (5-15) BUN (7-18) mg/dL Creatinine (0.7-1.3) mg/dL Est Cr Clr Drug Dosing mL/min Estimated GFR (MDRD) (>60) mL/min BUN/Creatinine Ratio (14-18) Glucose (70-99) mg/dL POC Glucose 153 H (70-99) mg/dL Calcium (8.5-10.1) mg/dL Iron (65-175) ug/dL TIBC (100-400) ug/dL % Saturation (20-55) % Transferrin (202-364) mg/dL Result Diagrams: 03/06/21 04:48 03/07/21 05:31 Levy Results Last 24 hrs: Microbiology 03/04/21 18:20 Respiratory Culture - Preliminary Sputum - Expectorated Gram Stain - Final Sepsis Event Note - Evaluation Sepsis Screening Result: No Definite Risk - Focused Exam Vital Signs: Vital Signs Temp Pulse Pulse Resp BP BP Pulse Ox 03/07/21 06:16 03/07/21 04:00 60 92 L 03/07/21 03:49 36.2 C 59 L 20 126/58 L 92 L 03/07/21 02:20 03/07/21 02:00 59 L 92 L 03/07/21 01:00 60 93 L 03/07/21 00:00 60 93 L 03/06/21 21:08 03/06/21 20:52 59 L 145/54 H 03/06/21 20:51 36.6 C 20 145/54 H 93 L Pulse Ox 03/07/21 06:16 94 L 03/07/21 04:00 03/07/21 03:49 03/07/21 02:20 93 L 03/07/21 02:00 03/07/21 01:00 03/07/21 00:00 03/06/21 21:08 94 L 03/06/21 20:52 03/06/21 20:51 - Problem List & Annotations (1) Anemia SNOMED Code(s): 733142543 Code(s): D64.9 - ANEMIA, UNSPECIFIED Status: Acute Priority: High Current Visit: Yes Onset Date: ~03/03/21 Qualifiers: Anemia type: iron deficiency Iron deficiency anemia type: chronic blood loss Qualified Code(s): D50.0 - Iron deficiency anemia secondary to blood loss (chronic) (2) Pneumonia SNOMED Code(s): 345682724 Code(s): J18.9 - PNEUMONIA, UNSPECIFIED ORGANISM Status: Acute Priority: High Current Visit: Yes Onset Date: ~03/03/21 Qualifiers: Pneumonia type: due to unspecified organism Laterality: bilateral Lung location: lower lobe of lung Qualified Code(s): J18.9 - Pneumonia, unspecified organism (3) CHF (congestive heart failure) SNOMED Code(s): 90732138 Code(s): I50.9 - HEART FAILURE, UNSPECIFIED Status: Chronic Priority: High Current Visit: Yes Onset Date: ~03/03/21 Qualifiers: Heart failure type: biventricular Qualified Code(s): I50.82 - Biventricular heart failure (4) Renal insufficiency SNOMED Code(s): 677543689, 241681648 Code(s): N28.9 - DISORDER OF KIDNEY AND URETER, UNSPECIFIED Status: Chronic Priority: Medium Current Visit: Yes Onset Date: ~03/05/21 (5) Type 2 diabetes mellitus SNOMED Code(s): 99437094 Code(s): E11.9 - TYPE 2 DIABETES MELLITUS WITHOUT COMPLICATIONS Status: Chronic Priority: Medium Current Visit: Yes Onset Date: ~03/03/21 Qualifiers: Diabetes mellitus half-way insulin use: with half-way use Diabetes mellitus complication status: with kidney complications Diabetes mellitus complication detail: with chronic kidney disease Chronic kidney disease stage: stage 3 (moderate) - Problem List Review Problem List Initiated/Reviewed/Updated: Yes - My Orders Last 24 Hours: My Active Orders 03/06/21 07:36 POC Glucose [Blood Glucose Check, Bedside] [RC] QIDACANDBED 03/06/21 09:00 Furosemide [Lasix] 20 mg PO Q48H 03/06/21 21:00 carvediloL [Coreg] 12.5 mg PO BID 03/07/21 09:00 Furosemide [Lasix] 40 mg PO Q48H Losartan [Cozaar] 12.5 mg PO DAILY - Plan Plan:: Assessment This is a 85M with PMhx of atrial fibrillation (on eliquis); hx of CAD/HTN, suspected undiagnosed CHF presenting for evaluation of SOB, cough, and generalized weakness. He presented to the ED and was hypoxic requiring 2-3 liters supplemental oxygen. He stated his SOB improved with nebulizer. He underwent CT Chest which showed small bilateral pleural effusion, increased density within lower lung rice, right lower lung nodule (Repeat CT recommended in 6-9 months). He was given ceftriaxone and admitted for further evaluation. 1. Acute hypoxia secondary to CAP 2. Hx of CAD/HTN 3. Hx of atrial fibrillation on eliquis 4. Suspected CHF exacerbation; baseline EF unknown 5. Thrombocytopenia 6. Hx o Type II DM 7. ANJANA/CKD Stage III (anticipate renal function to improve with diuresis/improved cardiac output/renal perfusion pressure) Plan -admit to inpatient -check procal -antibiotics: doxycycline +ceftriaxone -start IV Lasix -check UA -hold losartan -tele -daily weight -I&O -tessalon -RT consult -scheduled duoneb -echo Code-DNR/DNi DVT px-eliquis 03/04/2021 Assessment: MARY ALICE is an 85yo male with PMH of a.fib, CAD/Htn, T2DM, and suspected CHF who presented for evaluation of SOB, cough and weakness. Following CT chest, diagnosis of CAP was made and ceftriaxone/doxycycline was administered. Today, he continues to cough and requires oxygen, but was able to sleep well and was alert and interactive. 1. acute hypoxia secondary to CAP 2. acute exacerbation of CHF secondary to CAP 3. Hx of CAD/Htn, a. fib 4. ANJANA/CKD Stage III 5. Anemia 6. Hx of type II DM Plan - continue ceftriaxone/doxycycline - continue supplemental O2 - continue to monitor trends in CBC, BMP, BNP, CRP and vital signs - continue IV lasix - telemetry - continue to monitor daily weight, I & O - test for fecal occult blood, monitor for melena/hematochezia - continue insulin regimen - plan to follow up with [facility] 03/10/21, CHF clinic at [facility] reviewed boh 03/05/21 afebrile vss slept well eating fair. cogh loose and productive. weakness better. -985 on is/os p.e. ronchii loose air entry good. cor ir/ir 80s sats stable 1 liter abd benign neuro aox4 . chest xray improved bilateral ll pneumonia// improved left pleural effusion and chf lab pending. assess: pneumonia improved. chf improved afib rate controlled. renal function improved. creatanine 1.9 this am. appetite improved anemia appears stable clinically check Hemoccult on xaralto full dose. plan cont current treatments / nebs / increase activity/rehab. wean o2 as tolerated. cardiology follow up as o.p. boh 03/06/21 afebrile vss , on o2 1 liter sats 90-96%. hr drops down to 50s despite pacemaker,afib appetite better //loose prod. cough on nebs q 6 hours,little walking up to chair and b.r. weakness evident and p.t involved. chest xray cont rt and left effusions (small) and increased vasc and arturo b lines. basiler and rml infiltrates and fibrosis. lungs ronchii improving and better air exch. no rales / decreased b.s still evident. cor : rate 70-80 afib no murm. no s3/s4 abd benign neuro sharp.// conversive // normal exam m.s: normal with arthritis ext. plus one pitting edema. lab bnp not obtained last one still [id number] from [id number]. good creat 1.9l /////ytes good hgn decreased 9.2 with positive hemmoccult and hx of epistaxis recurrent (denies melana). stopped asa and cont anticoagualation sec to afib. 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 low alb : poor appetite x 2 months and taking nutrition shakes 3 x day . weakness improving slowly . chf may need eval of pacemaker sec to lower h.r than expected. cont lasix iv today and recheck bnp . added losartin back and tolerating . decreased coreg sec. to hypotension (mild) added spironolactone. ? 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 not wanting any half-way care at this point as recovering. renal insuff not as bad creat improved 1.9 . plan cont current treatments and start dc plans for possible tues.wemilind dc. boh
[2021-03-07] MEDS: Insulin Lispro 100 UNIT/ML 10 ML Vial SUBCUT SCH ×4 (08:50→21:33)
[2021-03-07] MEDS ORDERED: Furosemide 40 MG Tab PO SCH (09:00)
--- NOTE | 2021-03-07 09:35 | PCM.PN ---
- General Info Date of Service: 03/07/21 Admission Dx/Problem (Free Text): Admission Diagnosis/Problem Admission Diagnosis/Problem Congestive heart failure CAP CHF Subjective Update: patient continues to diurese well having cough denies aspiration denies chest pain Functional Status: Reports: Pain Controlled - Review of Systems General: Reports: Weakness HEENT: Reports: No Symptoms Pulmonary: Reports: Cough Cardiovascular: Reports: No Symptoms Gastrointestinal: Reports: No Symptoms Skin: Reports: No Symptoms Neurological: Reports: No Symptoms - Patient Data Vitals - Most Recent: Last Vital Signs Temp 97.2 F 03/07/21 03:49 Pulse 60 03/07/21 04:00 Resp 20 03/07/21 03:49 BP 126/58 L 03/07/21 03:49 Pulse Ox 93 L 03/07/21 09:10 Weight - Most Recent: 183 lb 9.6 oz I&O - Last 24 Hours: Intake & Output 03/06/21 03/07/21 03/07/21 22:59 06:59 14:59 Intake Total 1850 Output Total 475 450 Balance 1375 -450 Lab Results Last 24 Hours: Laboratory Results - last 24 hr 03/06/21 03/06/21 03/06/21 Range/Units 04:48 04:48 11:46 WBC 8.34 (4.23-9.07) K/mm3 RBC 3.31 L (4.63-6.08) M/mm3 Hgb 9.6 L (13.7-17.5) gm/dl Hct 30.2 L (40.1-51.0) % MCV 91.2 (79.0-92.2) fl MCH 29.0 (25.7-32.2) pg MCHC 31.8 L (32.2-35.5) g/dl RDW Std Deviation 50.9 H (35.1-43.9) fL Plt Count 124 L (163-337) K/mm3 MPV 12.2 (9.4-12.3) fl Neut % (Auto) 72.8 H (34.0-67.9) % Lymph % (Auto) 8.5 L (21.8-53.1) % Nuckolls % (Auto) 17.1 H (5.3-12.2) % Eos % (Auto) 0.6 L (0.8-7.0) Baso % (Auto) 0.4 (0.1-1.2) % Neut # (Auto) 6.07 H (1.78-5.38) K/mm3 Lymph # (Auto) 0.71 L (1.32-3.57) K/mm3 Nuckolls # (Auto) 1.43 H (0.30-0.82) K/mm3 Eos # (Auto) 0.05 (0.04-0.54) K/mm3 Baso # (Auto) 0.03 (0.01-0.08) K/mm3 Manual Slide Review Abnormal smear Sodium (136-145) mEq/L Potassium (3.5-5.1) mEq/L Chloride (98-107) mEq/L Carbon Dioxide (21-32) mEq/L Anion Gap (5-15) BUN (7-18) mg/dL Creatinine (0.7-1.3) mg/dL Est Cr Clr Drug Dosing mL/min Estimated GFR (MDRD) (>60) mL/min BUN/Creatinine Ratio (14-18) Glucose (70-99) mg/dL POC Glucose 269 H (70-99) mg/dL Calcium (8.5-10.1) mg/dL Iron 16 L (65-175) ug/dL TIBC 183 (100-400) ug/dL % Saturation 9 L (20-55) % Transferrin 146 L (202-364) mg/dL 03/06/21 03/06/21 03/07/21 Range/Units 17:54 21:16 05:31 WBC (4.23-9.07) K/mm3 RBC (4.63-6.08) M/mm3 Hgb (13.7-17.5) gm/dl Hct (40.1-51.0) % MCV (79.0-92.2) fl MCH (25.7-32.2) pg MCHC (32.2-35.5) g/dl RDW Std Deviation (35.1-43.9) fL Plt Count (163-337) K/mm3 MPV (9.4-12.3) fl Neut % (Auto) (34.0-67.9) % Lymph % (Auto) (21.8-53.1) % Nuckolls % (Auto) (5.3-12.2) % Eos % (Auto) (0.8-7.0) Baso % (Auto) (0.1-1.2) % Neut # (Auto) (1.78-5.38) K/mm3 Lymph # (Auto) (1.32-3.57) K/mm3 Nuckolls # (Auto) (0.30-0.82) K/mm3 Eos # (Auto) (0.04-0.54) K/mm3 Baso # (Auto) (0.01-0.08) K/mm3 Manual Slide Review Sodium 144 (136-145) mEq/L Potassium 4.6 (3.5-5.1) mEq/L Chloride 108 H (98-107) mEq/L Carbon Dioxide 28 (21-32) mEq/L Anion Gap 12.6 (5-15) BUN 59 H (7-18) mg/dL Creatinine 1.4 H (0.7-1.3) mg/dL Est Cr Clr Drug Dosing 43.88 mL/min Estimated GFR (MDRD) 48 (>60) mL/min BUN/Creatinine Ratio 42.1 H (14-18) Glucose 160 H (70-99) mg/dL POC Glucose 231 H 251 H (70-99) mg/dL Calcium 8.1 L (8.5-10.1) mg/dL Iron (65-175) ug/dL TIBC (100-400) ug/dL % Saturation (20-55) % Transferrin (202-364) mg/dL 03/07/21 Range/Units 05:31 WBC (4.23-9.07) K/mm3 RBC (4.63-6.08) M/mm3 Hgb (13.7-17.5) gm/dl Hct (40.1-51.0) % MCV (79.0-92.2) fl MCH (25.7-32.2) pg MCHC (32.2-35.5) g/dl RDW Std Deviation (35.1-43.9) fL Plt Count (163-337) K/mm3 MPV (9.4-12.3) fl Neut % (Auto) (34.0-67.9) % Lymph % (Auto) (21.8-53.1) % Nuckolls % (Auto) (5.3-12.2) % Eos % (Auto) (0.8-7.0) Baso % (Auto) (0.1-1.2) % Neut # (Auto) (1.78-5.38) K/mm3 Lymph # (Auto) (1.32-3.57) K/mm3 Nuckolls # (Auto) (0.30-0.82) K/mm3 Eos # (Auto) (0.04-0.54) K/mm3 Baso # (Auto) (0.01-0.08) K/mm3 Manual Slide Review Sodium (136-145) mEq/L Potassium (3.5-5.1) mEq/L Chloride (98-107) mEq/L Carbon Dioxide (21-32) mEq/L Anion Gap (5-15) BUN (7-18) mg/dL Creatinine (0.7-1.3) mg/dL Est Cr Clr Drug Dosing mL/min Estimated GFR (MDRD) (>60) mL/min BUN/Creatinine Ratio (14-18) Glucose (70-99) mg/dL POC Glucose 153 H (70-99) mg/dL Calcium (8.5-10.1) mg/dL Iron (65-175) ug/dL TIBC (100-400) ug/dL % Saturation (20-55) % Transferrin (202-364) mg/dL Levy Results Last 24 Hours: Microbiology 03/04/21 18:20 Respiratory Culture - Preliminary Sputum - Expectorated Gram Stain - Final Med Orders - Current: Current Medications Acetaminophen (Acetaminophen 325 Mg Tab) 650 mg PO Q4H PRN PRN Reason: Pain (Mild 1-3)/fever Albuterol/Ipratropium (Albuterol/Ipratropium 3.0-0.5 Mg/3 Ml Neb Soln) 3 ml NEB Q4HRRT [facility] Last Admin: 03/07/21 09:10 Dose: 3 ml Documented by: Apixaban (Apixaban 5 Mg Tab) 5 mg PO BID [facility] Last Admin: 03/06/21 20:53 Dose: 5 mg Documented by: Benzonatate (Benzonatate 100 Mg Cap) 200 mg PO BID [facility] Last Admin: 03/06/21 20:52 Dose: 200 mg Documented by: Carvedilol (Carvedilol 12.5 Mg Tab) 12.5 mg PO BID [facility] Last Admin: 03/06/21 20:52 Dose: 12.5 mg Documented by: Doxycycline Hyclate (Doxycycline 100 Mg Cap) 100 mg PO BID [facility] Last Admin: 03/06/21 20:53 Dose: 100 mg Documented by: Furosemide (Furosemide 40 Mg Tab) 40 mg PO DAILY [facility] Guaifenesin/Phenylephrine HCl (Guaifenesin/Dextromethorphan 100-10 Mg/5 Ml Soln 5 Ml Cup) 5 ml PO Q4H PRN PRN Reason: Other Last Admin: 03/07/21 03:51 Dose: 5 ml Documented by: Insulin Glargine (Insulin Glarg,Human.Rec.Analog 100 Unit/Ml) 25 unit SUBCUT DAILY [facility] Last Admin: 03/06/21 08:56 Dose: 25 units Documented by: Insulin Human Lispro (Insulin Lispro 100 Unit/Ml 10 Ml Vial) 0 unit SUBCUT QIDACANDBED [facility]; Protocol Last Admin: 03/07/21 08:50 Dose: 2 unit Documented by: Losartan Potassium (Losartan 25 Mg Tab) 12.5 mg PO DAILY [facility] Melatonin (Melatonin 3 Mg Tab) 6 mg PO BEDTIME [facility] Last Admin: 03/06/21 20:53 Dose: 6 mg Documented by: Ondansetron HCl (Ondansetron 4 Mg/2 Ml Sdv) 4 mg IV Q4H PRN PRN Reason: Nausea/Vomiting Simvastatin (Simvastatin 40 Mg Tab) 40 mg PO BEDTIME [facility] Last Admin: 03/06/21 20:53 Dose: 40 mg Documented by: Sodium Chloride (Sodium Chloride 0.9% 10 Ml Syringe) 10 ml FLUSH ASDIRECTED PRN PRN Reason: Keep Vein Open Last Admin: 03/04/21 20:26 Dose: 10 ml Documented by: Spironolactone (Spironolactone 25 Mg Tab) 25 mg PO DAILY [facility] Last Admin: 03/06/21 08:54 Dose: 25 mg Documented by: Discontinued Medications Albuterol/Ipratropium (Albuterol/Ipratropium 3.0-0.5 Mg/3 Ml Neb Soln) 3 ml NEB ONETIME ONE Stop: 03/03/21 13:38 Last Admin: 03/03/21 14:18 Dose: 3 ml Documented by: Aspirin (Aspirin 81 Mg Tab.Chew) 81 mg PO Q48H [facility] Last Admin: 03/06/21 12:41 Dose: 81 mg Documented by: Carvedilol (Carvedilol 12.5 Mg Tab) 25 mg PO BID [facility] Last Admin: 03/06/21 08:54 Dose: 25 mg Documented by: Furosemide (Furosemide 20 Mg/2 Ml Vial) 20 mg IVPUSH BID [facility] Last Admin: 03/03/21 20:26 Dose: 20 mg Documented by: Furosemide (Furosemide 40 Mg/4 Ml Vial) 40 mg IVPUSH BID [facility] Last Admin: 03/05/21 09:01 Dose: 40 mg Documented by: Furosemide (Furosemide 20 Mg Tab) 20 mg PO Q48H [facility] Last Admin: 03/06/21 08:54 Dose: 20 mg Documented by: Furosemide (Furosemide 40 Mg Tab) 40 mg PO Q48H [facility] Ceftriaxone Sodium 2 gm/ (Sodium Chloride) 100 mls @ 200 mls/hr IV ONETIME ONE Stop: 03/03/21 13:27 Last Admin: 03/03/21 13:58 Dose: 200 mls/hr Documented by: Ceftriaxone Sodium 1 gm/ (Sodium Chloride) 100 mls @ 200 mls/hr IV Q24H [facility] Last Admin: 03/06/21 16:32 Dose: 200 mls/hr Documented by: Insulin Glargine (Insulin Glarg,Human.Rec.Analog 100 Unit/Ml) 20 unit SUBCUT ONETIME ONE Stop: 03/05/21 09:01 Last Admin: 03/05/21 09:06 Dose: 20 units Documented by: - Exam Quality Assessment: Supplemental Oxygen General: Alert, Oriented HEENT: EOMI, Mucous Membr. Moist/[place] Neck: Supple Lungs: Other (coarse breath sounds) Cardiovascular: Regular Rate, Regular Rhythm GI/Abdominal Exam: Normal Bowel Sounds, Soft, Non-Tender Skin: Warm, Dry, Intact Neurological: No New Focal Deficit, Normal Speech Psy/Mental Status: Alert, Normal Affect, Normal Mood - Patient Data Lab Results Last 24 hrs: Laboratory Results - last 24 hr 03/06/21 03/06/21 03/06/21 Range/Units 04:48 04:48 11:46 WBC 8.34 (4.23-9.07) K/mm3 RBC 3.31 L (4.63-6.08) M/mm3 Hgb 9.6 L (13.7-17.5) gm/dl Hct 30.2 L (40.1-51.0) % MCV 91.2 (79.0-92.2) fl MCH 29.0 (25.7-32.2) pg MCHC 31.8 L (32.2-35.5) g/dl RDW Std Deviation 50.9 H (35.1-43.9) fL Plt Count 124 L (163-337) K/mm3 MPV 12.2 (9.4-12.3) fl Neut % (Auto) 72.8 H (34.0-67.9) % Lymph % (Auto) 8.5 L (21.8-53.1) % Nuckolls % (Auto) 17.1 H (5.3-12.2) % Eos % (Auto) 0.6 L (0.8-7.0) Baso % (Auto) 0.4 (0.1-1.2) % Neut # (Auto) 6.07 H (1.78-5.38) K/mm3 Lymph # (Auto) 0.71 L (1.32-3.57) K/mm3 Nuckolls # (Auto) 1.43 H (0.30-0.82) K/mm3 Eos # (Auto) 0.05 (0.04-0.54) K/mm3 Baso # (Auto) 0.03 (0.01-0.08) K/mm3 Manual Slide Review Abnormal smear Sodium (136-145) mEq/L Potassium (3.5-5.1) mEq/L Chloride (98-107) mEq/L Carbon Dioxide (21-32) mEq/L Anion Gap (5-15) BUN (7-18) mg/dL Creatinine (0.7-1.3) mg/dL Est Cr Clr Drug Dosing mL/min Estimated GFR (MDRD) (>60) mL/min BUN/Creatinine Ratio (14-18) Glucose (70-99) mg/dL POC Glucose 269 H (70-99) mg/dL Calcium (8.5-10.1) mg/dL Iron 16 L (65-175) ug/dL TIBC 183 (100-400) ug/dL % Saturation 9 L (20-55) % Transferrin 146 L (202-364) mg/dL 03/06/21 03/06/21 03/07/21 Range/Units 17:54 21:16 05:31 WBC (4.23-9.07) K/mm3 RBC (4.63-6.08) M/mm3 Hgb (13.7-17.5) gm/dl Hct (40.1-51.0) % MCV (79.0-92.2) fl MCH (25.7-32.2) pg MCHC (32.2-35.5) g/dl RDW Std Deviation (35.1-43.9) fL Plt Count (163-337) K/mm3 MPV (9.4-12.3) fl Neut % (Auto) (34.0-67.9) % Lymph % (Auto) (21.8-53.1) % Nuckolls % (Auto) (5.3-12.2) % Eos % (Auto) (0.8-7.0) Baso % (Auto) (0.1-1.2) % Neut # (Auto) (1.78-5.38) K/mm3 Lymph # (Auto) (1.32-3.57) K/mm3 Nuckolls # (Auto) (0.30-0.82) K/mm3 Eos # (Auto) (0.04-0.54) K/mm3 Baso # (Auto) (0.01-0.08) K/mm3 Manual Slide Review Sodium 144 (136-145) mEq/L Potassium 4.6 (3.5-5.1) mEq/L Chloride 108 H (98-107) mEq/L Carbon Dioxide 28 (21-32) mEq/L Anion Gap 12.6 (5-15) BUN 59 H (7-18) mg/dL Creatinine 1.4 H (0.7-1.3) mg/dL Est Cr Clr Drug Dosing 43.88 mL/min Estimated GFR (MDRD) 48 (>60) mL/min BUN/Creatinine Ratio 42.1 H (14-18) Glucose 160 H (70-99) mg/dL POC Glucose 231 H 251 H (70-99) mg/dL Calcium 8.1 L (8.5-10.1) mg/dL Iron (65-175) ug/dL TIBC (100-400) ug/dL % Saturation (20-55) % Transferrin (202-364) mg/dL 03/07/21 Range/Units 05:31 WBC (4.23-9.07) K/mm3 RBC (4.63-6.08) M/mm3 Hgb (13.7-17.5) gm/dl Hct (40.1-51.0) % MCV (79.0-92.2) fl MCH (25.7-32.2) pg MCHC (32.2-35.5) g/dl RDW Std Deviation (35.1-43.9) fL Plt Count (163-337) K/mm3 MPV (9.4-12.3) fl Neut % (Auto) (34.0-67.9) % Lymph % (Auto) (21.8-53.1) % Nuckolls % (Auto) (5.3-12.2) % Eos % (Auto) (0.8-7.0) Baso % (Auto) (0.1-1.2) % Neut # (Auto) (1.78-5.38) K/mm3 Lymph # (Auto) (1.32-3.57) K/mm3 Nuckolls # (Auto) (0.30-0.82) K/mm3 Eos # (Auto) (0.04-0.54) K/mm3 Baso # (Auto) (0.01-0.08) K/mm3 Manual Slide Review Sodium (136-145) mEq/L Potassium (3.5-5.1) mEq/L Chloride (98-107) mEq/L Carbon Dioxide (21-32) mEq/L Anion Gap (5-15) BUN (7-18) mg/dL Creatinine (0.7-1.3) mg/dL Est Cr Clr Drug Dosing mL/min Estimated GFR (MDRD) (>60) mL/min BUN/Creatinine Ratio (14-18) Glucose (70-99) mg/dL POC Glucose 153 H (70-99) mg/dL Calcium (8.5-10.1) mg/dL Iron (65-175) ug/dL TIBC (100-400) ug/dL % Saturation (20-55) % Transferrin (202-364) mg/dL Result Diagrams: 03/06/21 04:48 03/07/21 05:31 Levy Results Last 24 hrs: Microbiology 03/04/21 18:20 Respiratory Culture - Preliminary Sputum - Expectorated Gram Stain - Final Sepsis Event Note - Evaluation Sepsis Screening Result: No Definite Risk - Focused Exam Vital Signs: Vital Signs Temp Pulse Pulse Resp BP Pulse Ox Pulse Ox 03/07/21 09:10 93 L 03/07/21 06:16 94 L 03/07/21 04:00 60 92 L 03/07/21 03:49 97.2 F 59 L 20 126/58 L 92 L 03/07/21 02:20 93 L 03/07/21 02:00 59 L 92 L 03/07/21 01:00 60 93 L 03/07/21 00:00 60 93 L - Problem List Review Problem List Initiated/Reviewed/Updated: Yes - My Orders Last 24 Hours: My Active Orders 03/07/21 09:27 CXR [Chest 1V Frontal] [CR] Routine 03/08/21 09:00 Furosemide [Lasix] 40 mg PO DAILY - Plan Plan:: Assessment This is a 85M with PMhx of atrial fibrillation (on eliquis); hx of CAD/HTN, suspected undiagnosed CHF presenting for evaluation of SOB, cough, and generalized weakness. He presented to the ED and was hypoxic requiring 2-3 liters supplemental oxygen. He stated his SOB improved with nebulizer. He underwent CT Chest which showed small bilateral pleural effusion, increased density within lower lung rice, right lower lung nodule (Repeat CT recommended in 6-9 months). He was given ceftriaxone and admitted for further evaluation. 1. Acute hypoxia secondary to CAP 2. Hx of CAD/HTN 3. Hx of atrial fibrillation on eliquis 4. Suspected CHF exacerbation; baseline EF unknown 5. Thrombocytopenia 6. Hx o Type II DM 7. ANJANA/CKD Stage III (anticipate renal function to improve with diuresis/improved cardiac output/renal perfusion pressure) Plan -admit to inpatient -check procal -antibiotics: doxycycline +ceftriaxone -start IV Lasix -check UA -hold losartan -tele -daily weight -I&O -tessalon -RT consult -scheduled duoneb -echo Code-DNR/DNi DVT px-eliquis 03/04/2021 Assessment: AK is an 85yo male with PMH of a.fib, CAD/Htn, T2DM, and suspected CHF who presented for evaluation of SOB, cough and weakness. Following CT chest, diagnosis of CAP was made and ceftriaxone/doxycycline was administered. Today, he continues to cough and requires oxygen, but was able to sleep well and was alert and interactive. 1. acute hypoxia secondary to CAP 2. acute exacerbation of CHF secondary to CAP 3. Hx of CAD/Htn, a. fib 4. ANJANA/CKD Stage III 5. Anemia 6. Hx of type II DM Plan - continue ceftriaxone/doxycycline - continue supplemental O2 - continue to monitor trends in CBC, BMP, BNP, CRP and vital signs - continue IV lasix - telemetry - continue to monitor daily weight, I & O - test for fecal occult blood, monitor for melena/hematochezia - continue insulin regimen - plan to follow up with [facility] 03/10/21, CHF clinic at [facility] reviewed [facility] 03/05/21 afebrile vss slept well eating fair. cogh loose and productive. weakness better. -985 on is/os p.e. ronchii loose air entry good. cor ir/ir 80s sats stable 1 liter abd benign neuro aox4 . chest xray improved bilateral ll pneumonia// improved left pleural effusion and chf lab pending. assess: pneumonia improved. chf improved afib rate controlled. renal function improved. creatanine 1.9 this am. appetite improved anemia appears stable clinically check Hemoccult on xaralto full dose. plan cont current treatments / nebs / increase activity/rehab. wean o2 as tolerated. cardiology follow up as o.p. [facility] 03/06/21 afebrile vss , on o2 1 liter sats 90-96%. hr drops down to 50s despite pacemaker,afib appetite better //loose prod. cough on nebs q 6 hours,little walking up to chair and b.r. weakness evident and p.t involved. chest xray cont rt and left effusions (small) and increased vasc and arturo b lines. basiler and rml infiltrates and fibrosis. lungs ronchii improving and better air exch. no rales / decreased b.s still evident. cor : rate 70-80 afib no murm. no s3/s4 abd benign neuro sharp.// conversive // normal exam m.s: normal with arthritis ext. plus one pitting edema. lab bnp not obtained last one still [id number] from [id number]. good creat 1.9l /////ytes good hgn decreased 9.2 with positive hemmoccult and hx of epistaxis recurrent (denies melanjuliet). stopped asa and cont anticoagualation sec to afib. 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 low alb : poor appetite x 2 months and taking nutrition shakes 3 x day . weakness improving slowly . chf may need eval of pacemaker sec to lower h.r than expected. cont lasix iv today and recheck bnp . added losartin back and tolerating . decreased coreg sec. to hypotension (mild) added spironolactone. ? 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 not wanting any local intermodal truck driver care at this point as recovering. renal insuff not as bad creat improved 1.9 . plan cont current treatments and start dc plans for possible tues.wend dc. [facility] 03/07/21 Assessment This is a 85M with PMhx of atrial fibrillation (on eliquis); hx of CAD/HTN, suspected undiagnosed CHF presenting for evaluation of SOB, cough, and generalized weakness. He presented to the ED and was hypoxic requiring 2-3 liters supplemental oxygen. He stated his SOB improved with nebulizer. He underwent CT Chest which showed small bilateral pleural effusion, increased density within lower lung rice, right lower lung nodule (Repeat CT recommended in 6-9 months). He was given ceftriaxone and admitted for further evaluation. 1. Acute hypoxia secondary to CAP 2. Hx of CAD/HTN 3. Hx of atrial fibrillation on eliquis 4. Acute systolic CHF exacerbation EF 35% 5. Thrombocytopenia 6. Hx o Type II DM 7. ANJANA/CKD Stage III (anticipate renal function to improve with diuresis/imp roved cardiac output/renal perfusion pressure); renal function improving 8. Suspected COPD Plan -admit to inpatient -antibiotics: doxycycline +ceftriaxone-->Transitioned to Augmentin -switch to lasix 40 mg daily -continue coreg -continue losartan -tele -daily weight -I&O -tessalon -RT consult -scheduled duoneb -echo completed -repeat CXR today -wean oxygen -outpateint cardiology referral -weight trending down 192->183 -renal function improving Code-DNR/DNi DVT px-eliquis Dispo-possible dc tomorrow?
[2021-03-07] MEDS: Benzonatate 100 MG Cap PO SCH ×2 (09:36→20:00)
[2021-03-07] MEDS: Spironolactone 25 MG Tab PO SCH (09:36)
[2021-03-07] MEDS: Doxycycline 100 MG Cap PO SCH ×2 (09:37→20:00)
[2021-03-07] MEDS: Carvedilol 12.5 MG Tab PO SCH ×2 (09:37→20:00)
[2021-03-07] MEDS: Losartan 25 MG Tab PO SCH (09:37)
[2021-03-07] MEDS: Apixaban 5 MG Tab PO SCH ×2 (09:37→20:00)
[2021-03-07] MEDS: Insulin Glarg,Human.Rec.Analog 100 Unit/ML SUBCUT SCH (09:39)
--- NOTE | 2021-03-07 12:13 | CR ---
Chest: Portable view of the chest was obtained. Comparison: Prior chest x-ray of 03/05/21. Small left-sided pleural effusion is seen with slightly larger right-sided pleural effusion. Lung markings are increased which are equivocally more prominent than on prior study raising the possibility of worsening CHF. Increased density is noted within both lung bases which remains stable. Pacemaker is noted. 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 Nothing acute is seen within the osseous structures. Impression: 1. Findings suspicious for slight worsening of CHF. 2. Continuing increased density within both lung bases which remain stable and difficult to exclude areas of pneumonia. Diagnostic code #3
[2021-03-07] MEDS: Simvastatin 40 MG Tab PO SCH (20:00)
[2021-03-07] MEDS: Melatonin 3 MG Tab PO SCH (20:00)
[2021-03-08] MEDS: Albuterol/Ipratropium 3.0-0.5 MG/3 ML Neb Soln NEB SCH ×6 (02:35→21:32)
[2021-03-08] MEDS: guaiFENesin/Dextromethorphan 100-10 MG/5 ML Soln 5 ML Cup PO PRN (06:06)
[2021-03-08] MEDS: Insulin Lispro 100 UNIT/ML 10 ML Vial SUBCUT SCH ×4 (06:15→21:06)
[2021-03-08] MEDS ORDERED: Furosemide 40 MG Tab PO SCH (09:00)
[2021-03-08] MEDS: Insulin Glarg,Human.Rec.Analog 100 Unit/ML SUBCUT SCH (09:21)
[2021-03-08] MEDS: Apixaban 5 MG Tab PO SCH ×2 (09:22→20:51)
[2021-03-08] MEDS: Benzonatate 100 MG Cap PO SCH ×2 (09:22→20:52)
[2021-03-08] MEDS: Losartan 25 MG Tab PO SCH (09:23)
[2021-03-08] MEDS: Spironolactone 25 MG Tab PO SCH (09:23)
[2021-03-08] MEDS ORDERED: Magnesium Hydroxide 400 MG/5 ML Susp 30 ML Cup PO PRN (09:26)
[2021-03-08] MEDS: Carvedilol 12.5 MG Tab PO SCH ×2 (09:26→20:52)
[2021-03-08] MEDS: Cefdinir 300 MG Cap PO SCH ×2 (11:10→20:53)
[2021-03-08] MEDS: Furosemide 20 MG/2 ML VIAL IVPUSH SCH ×2 (11:10→20:53)
--- NOTE | 2021-03-08 12:05 | PCM.PN ---
- General Info Date of Service: 03/08/21 Admission Dx/Problem (Free Text): Admission Diagnosis/Problem Admission Diagnosis/Problem Congestive heart failure CAP CHF Subjective Update: patient continues to have cough denies chest pain requiring intermittent supplemental oxygen weight increased by 1 pound from yesterday - Review of Systems General: Reports: Weakness Pulmonary: Reports: Shortness of Breath, Cough Cardiovascular: Reports: No Symptoms Musculoskeletal: Reports: No Symptoms Skin: Reports: No Symptoms Neurological: Reports: No Symptoms - Patient Data Vitals - Most Recent: Last Vital Signs Temp 97.4 F 03/08/21 09:00 Pulse 63 03/08/21 09:26 Resp 21 H 03/08/21 09:00 BP 139/68 03/08/21 09:26 Pulse Ox 93 L 03/08/21 09:08 Weight - Most Recent: 184 lb 3.2 oz I&O - Last 24 Hours: Intake & Output 03/07/21 03/08/21 03/08/21 22:59 06:59 14:59 Intake Total 780 300 300 Output Total 775 700 Balance 5 -400 300 Lab Results Last 24 Hours: Laboratory Results - last 24 hr 03/07/21 03/07/21 03/08/21 Range/Units 17:30 21:31 06:15 WBC (4.23-9.07) K/mm3 RBC (4.63-6.08) M/mm3 Hgb (13.7-17.5) gm/dl Hct (40.1-51.0) % MCV (79.0-92.2) fl MCH (25.7-32.2) pg MCHC (32.2-35.5) g/dl RDW Std Deviation (35.1-43.9) fL Plt Count (163-337) K/mm3 MPV (9.4-12.3) fl Sodium (136-145) mEq/L Potassium (3.5-5.1) mEq/L Chloride (98-107) mEq/L Carbon Dioxide (21-32) mEq/L Anion Gap (5-15) BUN (7-18) mg/dL Creatinine (0.7-1.3) mg/dL Est Cr Clr Drug Dosing mL/min Estimated GFR (MDRD) (>60) mL/min BUN/Creatinine Ratio (14-18) Glucose (70-99) mg/dL POC Glucose 208 H 212 H 119 H (70-99) mg/dL Calcium (8.5-10.1) mg/dL Magnesium (1.8-2.4) mg/dL 03/08/21 03/08/21 03/08/21 Range/Units 07:56 07:56 11:08 WBC 10.41 H (4.23-9.07) K/mm3 RBC 3.60 L (4.63-6.08) M/mm3 Hgb 10.4 L (13.7-17.5) gm/dl Hct 32.5 L (40.1-51.0) % MCV 90.3 (79.0-92.2) fl MCH 28.9 (25.7-32.2) pg MCHC 32.0 L (32.2-35.5) g/dl RDW Std Deviation 50.7 H (35.1-43.9) fL Plt Count 198 (163-337) K/mm3 MPV 10.8 (9.4-12.3) fl Sodium 142 (136-145) mEq/L Potassium 4.7 (3.5-5.1) mEq/L Chloride 108 H (98-107) mEq/L Carbon Dioxide 26 (21-32) mEq/L Anion Gap 12.7 (5-15) BUN 42 H (7-18) mg/dL Creatinine 1.3 (0.7-1.3) mg/dL Est Cr Clr Drug Dosing 47.26 mL/min Estimated GFR (MDRD) 53 (>60) mL/min BUN/Creatinine Ratio 32.3 H (14-18) Glucose 145 H (70-99) mg/dL POC Glucose 201 H (70-99) mg/dL Calcium 8.4 L (8.5-10.1) mg/dL Magnesium 2.4 (1.8-2.4) mg/dL Levy Results Last 24 Hours: Microbiology 03/04/21 18:20 Gram Stain - Final Sputum - Expectorated 03/04/21 18:20 Respiratory Culture - Final Sputum - Expectorated Gram Stain - Final Med Orders - Current: Current Medications Acetaminophen (Acetaminophen 325 Mg Tab) 650 mg PO Q4H PRN PRN Reason: Pain (Mild 1-3)/fever Albuterol/Ipratropium (Albuterol/Ipratropium 3.0-0.5 Mg/3 Ml Neb Soln) 3 ml NEB Q4HRRT [facility] Last Admin: 03/08/21 09:06 Dose: 3 ml Documented by: Apixaban (Apixaban 5 Mg Tab) 5 mg PO BID [facility] Last Admin: 03/08/21 09:22 Dose: 5 mg Documented by: Benzonatate (Benzonatate 100 Mg Cap) 200 mg PO BID [facility] Last Admin: 03/08/21 09:22 Dose: 200 mg Documented by: Carvedilol (Carvedilol 12.5 Mg Tab) 12.5 mg PO BID [facility] Last Admin: 03/08/21 09:26 Dose: 12.5 mg Documented by: Cefdinir (Cefdinir 300 Mg Cap) 300 mg PO BID [facility] Stop: 03/09/21 21:01 Last Admin: 03/08/21 11:10 Dose: 300 mg Documented by: Furosemide (Furosemide 20 Mg/2 Ml Vial) 20 mg IVPUSH BID [facility] Last Admin: 03/08/21 11:10 Dose: 20 mg Documented by: Guaifenesin/Phenylephrine HCl (Guaifenesin/Dextromethorphan 100-10 Mg/5 Ml Soln 5 Ml Cup) 5 ml PO Q4H PRN PRN Reason: Other Last Admin: 03/08/21 06:06 Dose: 5 ml Documented by: Insulin Glargine (Insulin Glarg,Human.Rec.Analog 100 Unit/Ml) 25 unit SUBCUT DAILY [facility] Last Admin: 03/08/21 09:21 Dose: 25 units Documented by: Insulin Human Lispro (Insulin Lispro 100 Unit/Ml 10 Ml Vial) 0 unit SUBCUT QIDACANDBED [facility]; Protocol Last Admin: 03/08/21 06:15 Dose: Not Given Documented by: Losartan Potassium (Losartan 25 Mg Tab) 12.5 mg PO DAILY [facility] Last Admin: 03/08/21 09:23 Dose: 12.5 mg Documented by: Magnesium Hydroxide (Magnesium Hydroxide 400 Mg/5 Ml Susp 30 Ml Cup) 30 ml PO DAILY PRN PRN Reason: Constipation Last Admin: 03/08/21 09:33 Dose: 30 ml Documented by: Melatonin (Melatonin 3 Mg Tab) 6 mg PO BEDTIME [facility] Last Admin: 03/07/21 20:00 Dose: 6 mg Documented by: Ondansetron HCl (Ondansetron 4 Mg/2 Ml Sdv) 4 mg IV Q4H PRN PRN Reason: Nausea/Vomiting Simvastatin (Simvastatin 40 Mg Tab) 40 mg PO BEDTIME [facility] Last Admin: 03/07/21 20:00 Dose: 40 mg Documented by: Sodium Chloride (Sodium Chloride 0.9% 10 Ml Syringe) 10 ml FLUSH ASDIRECTED PRN PRN Reason: Keep Vein Open Last Admin: 03/04/21 20:26 Dose: 10 ml Documented by: Spironolactone (Spironolactone 25 Mg Tab) 25 mg PO DAILY [facility] Last Admin: 03/08/21 09:23 Dose: 25 mg Documented by: Discontinued Medications Albuterol/Ipratropium (Albuterol/Ipratropium 3.0-0.5 Mg/3 Ml Neb Soln) 3 ml NEB ONETIME ONE Stop: 03/03/21 13:38 Last Admin: 03/03/21 14:18 Dose: 3 ml Documented by: Aspirin (Aspirin 81 Mg Tab.Chew) 81 mg PO Q48H [facility] Last Admin: 03/06/21 12:41 Dose: 81 mg Documented by: Carvedilol (Carvedilol 12.5 Mg Tab) 25 mg PO BID [facility] Last Admin: 03/06/21 08:54 Dose: 25 mg Documented by: Doxycycline Hyclate (Doxycycline 100 Mg Cap) 100 mg PO BID [facility] Stop: 03/07/21 21:01 Last Admin: 03/07/21 20:00 Dose: 100 mg Documented by: Furosemide (Furosemide 20 Mg/2 Ml Vial) 20 mg IVPUSH BID [facility] Last Admin: 03/03/21 20:26 Dose: 20 mg Documented by: Furosemide (Furosemide 40 Mg/4 Ml Vial) 40 mg IVPUSH BID [facility] Last Admin: 03/05/21 09:01 Dose: 40 mg Documented by: Furosemide (Furosemide 20 Mg Tab) 20 mg PO Q48H [facility] Last Admin: 03/06/21 08:54 Dose: 20 mg Documented by: Furosemide (Furosemide 40 Mg Tab) 40 mg PO Q48H [facility] Last Admin: 03/07/21 09:36 Dose: 40 mg Documented by: Furosemide (Furosemide 40 Mg Tab) 40 mg PO DAILY [facility] Last Admin: 03/08/21 09:22 Dose: 40 mg Documented by: Ceftriaxone Sodium 2 gm/ (Sodium Chloride) 100 mls @ 200 mls/hr IV ONETIME ONE Stop: 03/03/21 13:27 Last Admin: 03/03/21 13:58 Dose: 200 mls/hr Documented by: Ceftriaxone Sodium 1 gm/ (Sodium Chloride) 100 mls @ 200 mls/hr IV Q24H [facility] Last Admin: 03/06/21 16:32 Dose: 200 mls/hr Documented by: Insulin Glargine (Insulin Glarg,Human.Rec.Analog 100 Unit/Ml) 20 unit SUBCUT ONETIME ONE Stop: 03/05/21 09:01 Last Admin: 03/05/21 09:06 Dose: 20 units Documented by: - Exam Quality Assessment: Supplemental Oxygen General: Alert, Oriented HEENT: EOMI, Mucous Membr. Moist/Secretary Neck: Supple Lungs: Decreased Breath Sounds, Crackles Cardiovascular: Regular Rate, Regular Rhythm GI/Abdominal Exam: Soft, Non-Tender, No Distention Skin: Warm, Dry, Intact Neurological: No New Focal Deficit Psy/Mental Status: Alert, Normal Affect, Normal Mood - Patient Data Lab Results Last 24 hrs: Laboratory Results - last 24 hr 03/07/21 03/07/21 03/08/21 Range/Units 17:30 21:31 06:15 WBC (4.23-9.07) K/mm3 RBC (4.63-6.08) M/mm3 Hgb (13.7-17.5) gm/dl Hct (40.1-51.0) % MCV (79.0-92.2) fl MCH (25.7-32.2) pg MCHC (32.2-35.5) g/dl RDW Std Deviation (35.1-43.9) fL Plt Count (163-337) K/mm3 MPV (9.4-12.3) fl Sodium (136-145) mEq/L Potassium (3.5-5.1) mEq/L Chloride (98-107) mEq/L Carbon Dioxide (21-32) mEq/L Anion Gap (5-15) BUN (7-18) mg/dL Creatinine (0.7-1.3) mg/dL Est Cr Clr Drug Dosing mL/min Estimated GFR (MDRD) (>60) mL/min BUN/Creatinine Ratio (14-18) Glucose (70-99) mg/dL POC Glucose 208 H 212 H 119 H (70-99) mg/dL Calcium (8.5-10.1) mg/dL Magnesium (1.8-2.4) mg/dL 03/08/21 03/08/21 03/08/21 Range/Units 07:56 07:56 11:08 WBC 10.41 H (4.23-9.07) K/mm3 RBC 3.60 L (4.63-6.08) M/mm3 Hgb 10.4 L (13.7-17.5) gm/dl Hct 32.5 L (40.1-51.0) % MCV 90.3 (79.0-92.2) fl MCH 28.9 (25.7-32.2) pg MCHC 32.0 L (32.2-35.5) g/dl RDW Std Deviation 50.7 H (35.1-43.9) fL Plt Count 198 (163-337) K/mm3 MPV 10.8 (9.4-12.3) fl Sodium 142 (136-145) mEq/L Potassium 4.7 (3.5-5.1) mEq/L Chloride 108 H (98-107) mEq/L Carbon Dioxide 26 (21-32) mEq/L Anion Gap 12.7 (5-15) BUN 42 H (7-18) mg/dL Creatinine 1.3 (0.7-1.3) mg/dL Est Cr Clr Drug Dosing 47.26 mL/min Estimated GFR (MDRD) 53 (>60) mL/min BUN/Creatinine Ratio 32.3 H (14-18) Glucose 145 H (70-99) mg/dL POC Glucose 201 H (70-99) mg/dL Calcium 8.4 L (8.5-10.1) mg/dL Magnesium 2.4 (1.8-2.4) mg/dL Result Diagrams: 03/08/21 07:56 03/08/21 07:56 Levy Results Last 24 hrs: Microbiology 03/04/21 18:20 Gram Stain - Final Sputum - Expectorated 03/04/21 18:20 Respiratory Culture - Final Sputum - Expectorated Gram Stain - Final Imaging Impressions Last 24 hrs: CXR concerning for CHF and PNA Sepsis Event Note - Evaluation Sepsis Screening Result: No Definite Risk - Focused Exam Vital Signs: Vital Signs Temp Pulse Resp BP BP Pulse Ox Pulse Ox 03/08/21 09:26 63 139/68 03/08/21 09:23 139/68 03/08/21 09:08 93 L 03/08/21 09:00 97.4 F 21 H 139/68 90 L 03/08/21 05:36 95 03/08/21 04:00 60 95 03/08/21 03:00 97.2 F 60 22 H 137/64 96 03/08/21 02:35 95 03/08/21 02:00 60 95 03/08/21 01:00 59 L 95 - Problem List Review Problem List Initiated/Reviewed/Updated: Yes - My Orders Last 24 Hours: My Active Orders 03/08/21 07:56 PROCALCITONIN [REF] Routine 03/08/21 09:26 Magnesium Hydroxide [Milk of Magnesia] 30 ml PO DAILY PRN 03/08/21 09:30 Cefdinir [Omnicef] 300 mg PO BID 03/08/21 12:00 Furosemide [Lasix] 20 mg IVPUSH BID - Plan Plan:: Assessment This is a 85M with PMhx of atrial fibrillation (on eliquis); hx of CAD/HTN, suspected undiagnosed CHF presenting for evaluation of SOB, cough, and generalized weakness. He presented to the ED and was hypoxic requiring 2-3 liters supplemental oxygen. He stated his SOB improved with nebulizer. He underwent CT Chest which showed small bilateral pleural effusion, increased density within lower lung rice, right lower lung nodule (Repeat CT recommended in 6-9 months). He was given ceftriaxone and admitted for further evaluation. 1. Acute hypoxia secondary to CAP 2. Hx of CAD/HTN 3. Hx of atrial fibrillation on eliquis 4. Suspected CHF exacerbation; baseline EF unknown 5. Thrombocytopenia 6. Hx o Type II DM 7. ANJANA/CKD Stage III (anticipate renal function to improve with diuresis/improved cardiac output/renal perfusion pressure) Plan -admit to inpatient -check procal -antibiotics: doxycycline +ceftriaxone -start IV Lasix -check UA -hold losartan -tele -daily weight -I&O -tessalon -RT consult -scheduled duoneb -echo Code-DNR/DNi DVT px-eliquis 03/04/2021 Assessment: AK is an 85yo male with PMH of a.fib, CAD/Htn, T2DM, and suspected CHF who presented for evaluation of SOB, cough and weakness. Following CT chest, diagnosis of CAP was made and ceftriaxone/doxycycline was administered. Today, he continues to cough and requires oxygen, but was able to sleep well and was alert and interactive. 1. acute hypoxia secondary to CAP 2. acute exacerbation of CHF secondary to CAP 3. Hx of CAD/Htn, a. fib 4. ANJANA/CKD Stage III 5. Anemia 6. Hx of type II DM Plan - continue ceftriaxone/doxycycline - continue supplemental O2 - continue to monitor trends in CBC, BMP, BNP, CRP and vital signs - continue IV lasix - telemetry - continue to monitor daily weight, I & O - test for fecal occult blood, monitor for melena/hematochezia - continue insulin regimen - plan to follow up with [facility] 03/10/21, CHF clinic at [facility] reviewed located within [facility] 03/05/21 afebrile vss slept well eating fair. cogh loose and productive. weakness better. -985 on is/os p.e. ronchii loose air entry good. cor ir/ir 80s sats stable 1 liter abd benign neuro aox4 . chest xray improved bilateral ll pneumonia// improved left pleural effusion and chf lab pending. assess: pneumonia improved. chf improved afib rate controlled. renal function improved. creatanine 1.9 this am. appetite improved anemia appears stable clinically check Hemoccult on xaralto full dose. plan cont current treatments / nebs / increase activity/rehab. wean o2 as tolerated. cardiology follow up as o.p. located within [facility] 03/06/21 afebrile vss , on o2 1 liter sats 90-96%. hr drops down to 50s despite pacemaker,afib appetite better //loose prod. cough on nebs q 6 hours,little walking up to chair and b.r. weakness evident and p.t involved. chest xray cont rt and left effusions (small) and increased vasc and arturo b lines. basiler and rml infiltrates and fibrosis. lungs ronchii improving and better air exch. no rales / decreased b.s still evident. cor : rate 70-80 afib no murm. no s3/s4 abd benign neuro sharp.// conversive // normal exam m.s: normal with arthritis ext. plus one pitting edema. lab bnp not obtained last one still [id number] from [id number]. good creat 1.9l /////ytes good hgn decreased 9.2 with positive hemmoccult and hx of epistaxis recurrent (maggie loving). stopped asa and cont anticoagualation sec to afib. 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 low alb : poor appetite x 2 months and taking nutrition shakes 3 x day . weakness improving slowly . chf may need eval of pacemaker sec to lower h.r than expected. cont lasix iv today and recheck bnp . added losartin back and tolerating . decreased coreg sec. to hypotension (mild) added spironolactone. ? 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 not wanting any nursing home care at this point as recovering. renal insuff not as bad creat improved 1.9 . plan cont current treatments and start dc plans for possible tues.wend dc. located within [facility] 03/07/21 Assessment This is a 85M with PMhx of atrial fibrillation (on eliquis); hx of CAD/HTN, suspected undiagnosed CHF presenting for evaluation of SOB, cough, and generalized weakness. He presented to the ED and was hypoxic requiring 2-3 liters supplemental oxygen. He stated his SOB improved with nebulizer. He underwent CT Chest which showed small bilateral pleural effusion, increased density within lower lung rice, right lower lung nodule (Repeat CT recommended in 6-9 months). He was given ceftriaxone and admitted for further evaluation. 1. Acute hypoxia secondary to CAP 2. Hx of CAD/HTN 3. Hx of atrial fibrillation on eliquis 4. Acute systolic CHF exacerbation EF 35% 5. Thrombocytopenia 6. Hx o Type II DM 7. ANJANA/CKD Stage III (anticipate renal function to improve with diuresis/improved cardiac output/renal perfusion pressure); renal function improving 8. Suspected COPD Plan -admit to inpatient -antibiotics: doxycycline +ceftriaxone-->doxy and ceftriaxone stopped 03/07 -switch to lasix 40 mg daily -continue coreg -continue losartan -tele -daily weight -I&O -tessalon -RT consult -scheduled duoneb -echo completed -repeat CXR completed 03/07 -wean oxygen -outpateint cardiology referral -weight trending down 192->183->184 -renal function improving 03/08/21 -start omnicef -start IV lasix; dc PO lasix -continue pulmonary toilet -wean oxygen as tolerate -electrolyte replacement as need -monitor I&O Code-DNR/DNi DVT px-eliquis Dispo-possible dc tomorrow with home health care
[2021-03-08] MEDS: Simvastatin 40 MG Tab PO SCH (20:53)
[2021-03-08] MEDS: Melatonin 3 MG Tab PO SCH (20:53)
[2021-03-09] MEDS: Albuterol/Ipratropium 3.0-0.5 MG/3 ML Neb Soln NEB SCH ×3 (01:44→10:42)
[2021-03-09] MEDS: guaiFENesin/Dextromethorphan 100-10 MG/5 ML Soln 5 ML Cup PO PRN (02:48)
[2021-03-09] MEDS: Insulin Lispro 100 UNIT/ML 10 ML Vial SUBCUT SCH ×2 (08:57→11:50)
[2021-03-09] MEDS: Cefdinir 300 MG Cap PO SCH (09:08)
[2021-03-09] MEDS: Carvedilol 12.5 MG Tab PO SCH (09:08)
[2021-03-09] MEDS: Losartan 25 MG Tab PO SCH (09:09)
[2021-03-09] MEDS: Benzonatate 100 MG Cap PO SCH (09:09)
[2021-03-09] MEDS: Spironolactone 25 MG Tab PO SCH (09:09)
[2021-03-09] MEDS: Apixaban 5 MG Tab PO SCH (09:10)
[2021-03-09] MEDS: Insulin Glarg,Human.Rec.Analog 100 Unit/ML SUBCUT SCH (09:10)
[2021-03-09] MEDS: Furosemide 20 MG/2 ML VIAL IVPUSH SCH (09:10)
--- NOTE | 2021-03-09 10:04 | CR ---
Chest: Portable view of the chest was obtained. Comparison: Prior chest x-ray of 03/07/21. Small bilateral pleural effusions are felt to be present. Increased density is noted within both lung bases, worse on the right side. Heart is mildly enlarged. Sternotomy is noted. 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 Bony structures show nothing acute. Pulmonary vessels are slightly prominent but mildly improved from previous chest x-ray. Impression: 1. Slightly improved pulmonary vascular congestion. 2. Other findings as noted above which are stable from most recent chest x-ray. Diagnostic code #2
--- NOTE | 2021-03-09 11:26 | PCM.DCSUM1 ---
Discharge Summary - Hospital Course HPI Initial Comments: HPI This is a 85M with PMhx of atrial fibrillation (on eliquis); hx of CAD/HTN, suspected undiagnosed CHF presenting for evaluation of SOB. The patient has been feeling ill for over two weeks. He has had SOB, and productive cough. Denies chest pain, fever, chest pressure. He was recently seen in clinic and started on Lasix which he stated worsened his symptoms. He also endorses orthopnea and lower extremity edema. Denies fall. He presented to the ED and was hypoxic requiring 2-3 liters supplemental oxygen. He stated his SOB improved with nebulizer. He underwent CT Chest which showed small bilateral pleural effusion, increased density within lower lung rice, right lower lung nodule (Repeat CT recommended in 6-9 months). He was given ceftriaxone and admitted for further evaluation. HOSPITAL COURSE 03/07/21 Assessment This is a 85M with PMhx of atrial fibrillation (on eliquis); hx of CAD/HTN, suspected undiagnosed CHF presenting for evaluation of SOB, cough, and generalized weakness. He presented to the ED and was hypoxic requiring 2-3 liters supplemental oxygen. He stated his SOB improved with nebulizer. He underwent CT Chest which showed small bilateral pleural effusion, increased density within lower lung rice, right lower lung nodule (Repeat CT recommended in 6-9 months). He was given ceftriaxone and admitted for further evaluation. 1. Acute hypoxia secondary to CAP; treated with doxycycline +ceftriaxone; finishing omnicef 2. Hx of CAD/HTN 3. Hx of atrial fibrillation on eliquis 4. Acute systolic CHF exacerbation EF 35% -treated with IV lasix; transitioned to 40 mg PO lasix daily -weight improved from 190 pounds to 177 -losartan held; may consider resumption at follow up -continue coreg -started on aldactone -recommend outpatient cardiology followup -PCP follow up within 5 days should check BMP+mg at follow up 5. Thrombocytopenia; resolved 6. Hx o Type II DM 7. ANJANA/CKD Stage III (anticipate renal function to improve with diuresis/improved cardiac output/renal perfusion pressure); renal function improving; Cr improved from 2.2 on admission to 1.4 8. Suspected COPD; will need outpatient PFTs, discharged on supplemental oxygen 9. Generalized weakness; discharging with home care services 10. Pulmonary right lower lung nodule right lower lung nodule (Repeat CT recommended in 6-9 months) Patient losartan held may consider resumption at future date patient will need BMP checked in Five days right lower lung nodule (Repeat CT recommended in 6-9 months) Face to Face meeting with patient and or family. Pt has the following diagnosis:Systolic CHF, PNA, Acute hypoxia secondary to CAP, ANJANA/CKD Stage III, Anemia, also see discharge summary for additional diagnosis. Pt needs home health care nursing services for: skilled assessment, vital signs, disease education, and medication management. Physical therapy for gait training, transfer training, safety education, neuromuscular reeducation, therapeutic exe rcise, balance training, equipment recommendations. OT for activities of daily living, balance training, functional mobility training, safety education, therapeutic activities, therapeutic exercises. 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 Pt is currently homebound related to decreased activity tolerance, decreased level of endurance and need for assistance of FWW. Pt will be followed by PCP, EMELY Laughlin Diagnosis: Stroke: No - Discharge Data Discharge Date: 03/09/21 Discharge Disposition: Home, W Home Health Agency 06 Condition: Stable - Referral to Home Health Date of Face to Face Encounter: 03/09/21 Reason for Homebound Status: Generalized weakness and deconditioning due to CHF and pneumonia Primary Care Physician: Piyush Miguel NP Skilled Need: RN, PT, OT, Home health aide - Patient Summary/Data Consults: Consultations 03/03/21 17:21 PT Evaluation and Treatment [CONS] Routine Respiratory Care Assess and Treatment [CONS] Routine - Patient Instructions Diet: Heart Healthy Diet Fluid Restriction: 2000 mL Activity: As Tolerated Notify Provider of: Fever, Increased Pain, Nausea and/or Vomiting (please have your primary clinic check a basic metabolic panel in 5 days) - Discharge Plan *PRESCRIPTION DRUG MONITORING PROGRAM REVIEWED*: Not Applicable *COPY OF PRESCRIPTION DRUG MONITORING REPORT IN PATIENT [place]: Not Applicable Prescriptions/Med Rec: Albuterol Sulfate [Albuterol Sulfate HFA] 8.5 gm INH Q4H PRN #1 ea PRN Reason: Shortness Of Breath Spironolactone [Aldactone] 12.5 mg PO DAILY #30 tab Albuterol/Ipratropium [Combivent Respimat] 4 gm IH BID PRN #1 aer.w.adap PRN Reason: Other carvediloL [Coreg] 12.5 mg PO BID #30 tablet Furosemide [Lasix] 40 mg PO DAILY #30 tab Cefdinir [Omnicef] 300 mg PO BID #6 cap Benzonatate [Tessalon Perle] 100 mg PO BID #30 capsule Home Medications: Home Meds Apixaban [Eliquis] 5 mg PO BID 09/17/20 [History] Insulin Aspart [NovoLOG] 0 unit SQ ASDIRECTED PRN 09/17/20 [History] Simvastatin 40 mg PO BEDTIME 09/17/20 [History] Aspirin 81 mg PO Q48H 02/27/21 [History] Insulin Detemir [Levemir Flextouch] 25 units SQ DAILY 03/03/21 [History] Albuterol Sulfate [Albuterol Sulfate HFA] 8.5 gm INH Q4H PRN #1 ea 03/09/21 [Rx] Albuterol/Ipratropium [Combivent Respimat] 4 gm IH BID PRN #1 aer.w.adap 03/09/21 [Rx] Benzonatate [Tessalon Perle] 100 mg PO BID #30 capsule 03/09/21 [Rx] Cefdinir [Omnicef] 300 mg PO BID #6 cap 03/09/21 [Rx] Furosemide [Lasix] 40 mg PO DAILY #30 tab 03/09/21 [Rx] Spironolactone [Aldactone] 12.5 mg PO DAILY #30 tab 03/09/21 [Rx] carvediloL [Coreg] 12.5 mg PO BID #30 tablet 03/09/21 [Rx] Oxygen Therapy Mode: Nasal Cannula Oxygen Flow Rate (L/min): 1 Maintain SpO2% greater than: 92 Patient Handouts: Heart Failure, Self Care, [id number], Heart Failure, Diagnosis, [id number], Living With Heart Failure, Community-Acquired Pneumonia, Adult, [id number], Sepsis, Self Care, Adult Forms: ED Department Discharge Referrals: Piyush Miguel NP [Primary Care Provider] - 03/15/21 9:00 am (Please come at least 15 minutes prior to the appointment to register.) Keya Acuna NP [Ordering Only Provider] - 03/24/21 10:45 am ([facility] [place], labs are first at 10:45 Norris time then appointment time si 13:30 Norris time.) - Discharge Summary/Plan Comment DC Time >30 min.: Yes (35 minutes) Total # of Minutes for Discharge Time: 35 minutes - Review of Systems General: Reports: Weakness Pulmonary: Reports: Cough Cardiovascular: Reports: No Symptoms Gastrointestinal: Reports: No Symptoms Musculoskeletal: Reports: No Symptoms Skin: Reports: No Symptoms Neurological: Reports: No Symptoms - Patient Data Vitals - Most Recent: Last Vital Signs Temp 96.7 F L 03/09/21 08:52 Pulse 62 03/09/21 09:08 Resp 19 03/09/21 08:52 BP 142/63 H 03/09/21 09:09 Pulse Ox 92 L 03/09/21 10:44 Weight - Most Recent: 177 lb 11.2 oz I&O - Last 24 hours: Intake & Output 03/08/21 03/09/21 03/09/21 22:59 06:59 14:59 Intake Total 1060 350 420 Output Total 300 Balance 1060 350 120 Lab Results - Last 24 hrs: Laboratory Results - last 24 hr 03/08/21 03/08/21 03/08/21 Range/Units 07:56 16:40 16:45 WBC (4.23-9.07) K/mm3 RBC (4.63-6.08) M/mm3 Hgb (13.7-17.5) gm/dl Hct (40.1-51.0) % MCV (79.0-92.2) fl MCH (25.7-32.2) pg MCHC (32.2-35.5) g/dl RDW Std Deviation (35.1-43.9) fL Plt Count (163-337) K/mm3 MPV (9.4-12.3) fl Neut % (Auto) (34.0-67.9) % Lymph % (Auto) (21.8-53.1) % Elk % (Auto) (5.3-12.2) % Eos % (Auto) (0.8-7.0) Baso % (Auto) (0.1-1.2) % Neut # (Auto) (1.78-5.38) K/mm3 Lymph # (Auto) (1.32-3.57) K/mm3 Elk # (Auto) (0.30-0.82) K/mm3 Eos # (Auto) (0.04-0.54) K/mm3 Baso # (Auto) (0.01-0.08) K/mm3 Manual Slide Review Sodium (136-145) mEq/L Potassium (3.5-5.1) mEq/L Chloride (98-107) mEq/L Carbon Dioxide (21-32) mEq/L Anion Gap (5-15) BUN (7-18) mg/dL Creatinine (0.7-1.3) mg/dL Est Cr Clr Drug Dosing mL/min Estimated GFR (MDRD) (>60) mL/min BUN/Creatinine Ratio (14-18) Glucose (70-99) mg/dL POC Glucose 116 H 194 H (70-99) mg/dL Calcium (8.5-10.1) mg/dL NT-Pro-B Natriuret Pep (0-450) pg/mL Procalcitonin 0.28 H ng/mL 03/08/21 03/09/21 03/09/21 Range/Units 20:58 08:10 08:10 WBC 9.33 H (4.23-9.07) K/mm3 RBC 3.77 L (4.63-6.08) M/mm3 Hgb 10.9 L (13.7-17.5) gm/dl Hct 34.1 L (40.1-51.0) % MCV 90.5 (79.0-92.2) fl MCH 28.9 (25.7-32.2) pg MCHC 32.0 L (32.2-35.5) g/dl RDW Std Deviation 50.7 H (35.1-43.9) fL Plt Count 211 (163-337) K/mm3 MPV 10.4 (9.4-12.3) fl Neut % (Auto) 70.5 H (34.0-67.9) % Lymph % (Auto) 14.0 L (21.8-53.1) % Elk % (Auto) 11.0 (5.3-12.2) % Eos % (Auto) 2.7 (0.8-7.0) Baso % (Auto) 0.6 (0.1-1.2) % Neut # (Auto) 6.57 H (1.78-5.38) K/mm3 Lymph # (Auto) 1.31 L (1.32-3.57) K/mm3 Elk # (Auto) 1.03 H (0.30-0.82) K/mm3 Eos # (Auto) 0.25 (0.04-0.54) K/mm3 Baso # (Auto) 0.06 (0.01-0.08) K/mm3 Manual Slide Review Not Reportable Sodium 143 (136-145) mEq/L Potassium 4.9 (3.5-5.1) mEq/L Chloride 107 (98-107) mEq/L Carbon Dioxide 28 (21-32) mEq/L Anion Gap 12.9 (5-15) BUN 41 H (7-18) mg/dL Creatinine 1.4 H (0.7-1.3) mg/dL Est Cr Clr Drug Dosing 43.88 mL/min Estimated GFR (MDRD) 48 (>60) mL/min BUN/Creatinine Ratio 29.3 H (14-18) Glucose 84 (70-99) mg/dL POC Glucose 264 H (70-99) mg/dL Calcium 8.3 L (8.5-10.1) mg/dL NT-Pro-B Natriuret Pep (0-450) pg/mL Procalcitonin ng/mL 03/09/21 03/09/21 Range/Units 08:10 08:12 WBC (4.23-9.07) K/mm3 RBC (4.63-6.08) M/mm3 Hgb (13.7-17.5) gm/dl Hct (40.1-51.0) % MCV (79.0-92.2) fl MCH (25.7-32.2) pg MCHC (32.2-35.5) g/dl RDW Std Deviation (35.1-43.9) fL Plt Count (163-337) K/mm3 MPV (9.4-12.3) fl Neut % (Auto) (34.0-67.9) % Lymph % (Auto) (21.8-53.1) % Elk % (Auto) (5.3-12.2) % Eos % (Auto) (0.8-7.0) Baso % (Auto) (0.1-1.2) % Neut # (Auto) (1.78-5.38) K/mm3 Lymph # (Auto) (1.32-3.57) K/mm3 Elk # (Auto) (0.30-0.82) K/mm3 Eos # (Auto) (0.04-0.54) K/mm3 Baso # (Auto) (0.01-0.08) K/mm3 Manual Slide Review Sodium (136-145) mEq/L Potassium (3.5-5.1) mEq/L Chloride (98-107) mEq/L Carbon Dioxide (21-32) mEq/L Anion Gap (5-15) BUN (7-18) mg/dL Creatinine (0.7-1.3) mg/dL Est Cr Clr Drug Dosing mL/min Estimated GFR (MDRD) (>60) mL/min BUN/Creatinine Ratio (14-18) Glucose (70-99) mg/dL POC Glucose 81 (70-99) mg/dL Calcium (8.5-10.1) mg/dL NT-Pro-B Natriuret Pep 5559 H (0-450) pg/mL Procalcitonin ng/mL KATY Results - Last 24 hrs: Microbiology 03/03/21 13:20 Blood Culture - Final Blood 03/03/21 13:15 Blood Culture - Final Blood Med Orders - Current: Current Medications Acetaminophen (Acetaminophen 325 Mg Tab) 650 mg PO Q4H PRN PRN Reason: Pain (Mild 1-3)/fever Albuterol/Ipratropium (Albuterol/Ipratropium 3.0-0.5 Mg/3 Ml Neb Soln) 3 ml NEB Q4HRRT [facility] Last Admin: 03/09/21 10:42 Dose: 3 ml Documented by: Apixaban (Apixaban 5 Mg Tab) 5 mg PO BID [facility] Last Admin: 03/09/21 09:10 Dose: 5 mg Documented by: Benzonatate (Benzonatate 100 Mg Cap) 200 mg PO BID [facility] Last Admin: 03/09/21 09:09 Dose: 200 mg Documented by: Carvedilol (Carvedilol 12.5 Mg Tab) 12.5 mg PO BID [facility] Last Admin: 03/09/21 09:08 Dose: 12.5 mg Documented by: Cefdinir (Cefdinir 300 Mg Cap) 300 mg PO BID [facility] Stop: 03/09/21 21:01 Last Admin: 03/09/21 09:08 Dose: 300 mg Documented by: Guaifenesin/Phenylephrine HCl (Guaifenesin/Dextromethorphan 100-10 Mg/5 Ml Soln 5 Ml Cup) 5 ml PO Q4H PRN PRN Reason: Other Last Admin: 03/09/21 02:48 Dose: 5 ml Documented by: Insulin Glargine (Insulin Glarg,Human.Rec.Analog 100 Unit/Ml) 25 unit SUBCUT DAILY [facility] Last Admin: 03/09/21 09:10 Dose: 25 units Documented by: Insulin Human Lispro (Insulin Lispro 100 Unit/Ml 10 Ml Vial) 0 unit SUBCUT QIDACANDBED [facility]; Protocol Last Admin: 03/09/21 08:57 Dose: Not Given Documented by: Losartan Potassium (Losartan 25 Mg Tab) 12.5 mg PO DAILY [facility] Last Admin: 03/09/21 09:09 Dose: 12.5 mg Documented by: Magnesium Hydroxide (Magnesium Hydroxide 400 Mg/5 Ml Susp 30 Ml Cup) 30 ml PO DAILY PRN PRN Reason: Constipation Last Admin: 03/08/21 09:33 Dose: 30 ml Documented by: Melatonin (Melatonin 3 Mg Tab) 6 mg PO BEDTIME [facility] Last Admin: 03/08/21 20:53 Dose: 6 mg Documented by: Ondansetron HCl (Ondansetron 4 Mg/2 Ml Sdv) 4 mg IV Q4H PRN PRN Reason: Nausea/Vomiting Senna/Docusate Sodium (Docusate Sodium/Sennosides 50-8.6 Mg Tab) 1 tab PO Q12H PRN PRN Reason: Constipation Last Admin: 03/09/21 10:55 Dose: 1 tab Documented by: Simvastatin (Simvastatin 40 Mg Tab) 40 mg PO BEDTIME [facility] Last Admin: 03/08/21 20:53 Dose: 40 mg Documented by: Sodium Chloride (Sodium Chloride 0.9% 10 Ml Syringe) 10 ml FLUSH ASDIRECTED PRN PRN Reason: Keep Vein Open Last Admin: 03/04/21 20:26 Dose: 10 ml Documented by: Spironolactone (Spironolactone 25 Mg Tab) 25 mg PO DAILY [facility] Last Admin: 03/09/21 09:09 Dose: 25 mg Documented by: Discontinued Medications Albuterol/Ipratropium (Albuterol/Ipratropium 3.0-0.5 Mg/3 Ml Neb Soln) 3 ml NEB ONETIME ONE Stop: 03/03/21 13:38 Last Admin: 03/03/21 14:18 Dose: 3 ml Documented by: Aspirin (Aspirin 81 Mg Tab.Chew) 81 mg PO Q48H [facility] Last Admin: 03/06/21 12:41 Dose: 81 mg Documented by: Carvedilol (Carvedilol 12.5 Mg Tab) 25 mg PO BID [facility] Last Admin: 03/06/21 08:54 Dose: 25 mg Documented by: Doxycycline Hyclate (Doxycycline 100 Mg Cap) 100 mg PO BID [facility] Stop: 03/07/21 21:01 Last Admin: 03/07/21 20:00 Dose: 100 mg Documented by: Furosemide (Furosemide 20 Mg/2 Ml Vial) 20 mg IVPUSH BID [facility] Last Admin: 03/03/21 20:26 Dose: 20 mg Documented by: Furosemide (Furosemide 40 Mg/4 Ml Vial) 40 mg IVPUSH BID [facility] Last Admin: 03/05/21 09:01 Dose: 40 mg Documented by: Furosemide (Furosemide 20 Mg Tab) 20 mg PO Q48H [facility] Last Admin: 03/06/21 08:54 Dose: 20 mg Documented by: Furosemide (Furosemide 40 Mg Tab) 40 mg PO Q48H [facility] Last Admin: 03/07/21 09:36 Dose: 40 mg Documented by: Furosemide (Furosemide 40 Mg Tab) 40 mg PO DAILY [facility] Last Admin: 03/08/21 09:22 Dose: 40 mg Documented by: Furosemide (Furosemide 20 Mg/2 Ml Vial) 20 mg IVPUSH BID [facility] Last Admin: 03/09/21 09:10 Dose: 20 mg Documented by: Ceftriaxone Sodium 2 gm/ (Sodium Chloride) 100 mls @ 200 mls/hr IV ONETIME ONE Stop: 03/03/21 13:27 Last Admin: 03/03/21 13:58 Dose: 200 mls/hr Documented by: Ceftriaxone Sodium 1 gm/ (Sodium Chloride) 100 mls @ 200 mls/hr IV Q24H [facility] Last Admin: 03/06/21 16:32 Dose: 200 mls/hr Documented by: Insulin Glargine (Insulin Glarg,Human.Rec.Analog 100 Unit/Ml) 20 unit SUBCUT ONETIME ONE Stop: 03/05/21 09:01 Last Admin: 03/05/21 09:06 Dose: 20 units Documented by: - Exam Quality Assessment: Reports: Supplemental Oxygen General: Reports: Alert, Oriented, No Acute Distress HEENT: Reports: EOMI, Mucous Membr. Moist/[place] Neck: Reports: Supple Lungs: Reports: Clear to Auscultation, Normal Respiratory Effort Cardiovascular: Reports: Regular Rate, Irregular Rhythm GI/Abdominal Exam: Soft, Non-Tender Back Exam: Reports: Normal Inspection Extremities: Normal Inspection Skin: Reports: Warm, Dry, Intact Neurological: Reports: No New Focal Deficit Psy/Mental Status: Reports: Alert, Normal Affect *Q Meaningful Use (DIS) - VTE *Q VTE Criteria *Q: 1; treated with eliquis VTE Pharmacological Contraindications *Q: Risk of Bleeding
== END 2021-03-09 14:15 | disposition home health service (06) | DRG 291 ==
LOC: JD.ED 11:52 → JD.ICU 17:37
PROVIDERS: ADMIT Hospitalist; ATTEND Hospitalist
DX: I13.0 Hypertensive heart and chronic kidney disease with heart failure and stage 1 through stage 4 chronic kidney disease, or unspecified chronic kidney disease (principal); I50.9 Heart failure, unspecified; J18.9 Pneumonia, unspecified organism; N28.9 Disorder of kidney and ureter, unspecified; H54.7 Unspecified visual loss; I50.23 Acute on chronic systolic (congestive) heart failure; I11.0 Hypertensive heart disease with heart failure; E78.00 Pure hypercholesterolemia, unspecified; J44.0 Chronic obstructive pulmonary disease with (acute) lower respiratory infection; N17.9 Acute kidney failure, unspecified; I48.91 Unspecified atrial fibrillation; G89.29 Other chronic pain; M54.9 Dorsalgia, unspecified; M19.90 Unspecified osteoarthritis, unspecified site; E10.8 Type 1 diabetes mellitus with unspecified complications; Z87.891 Personal history of nicotine dependence; I25.10 Atherosclerotic heart disease of native coronary artery without angina pectoris; Z79.82 Long term (current) use of aspirin; N18.30 Chronic kidney disease, stage 3 unspecified; Z79.899 Other long term (current) drug therapy; Z20.822 Contact with and (suspected) exposure to COVID-19; E11.22 Type 2 diabetes mellitus with diabetic chronic kidney disease; R09.02 Hypoxemia; Z66 Do not resuscitate; D69.6 Thrombocytopenia, unspecified; R53.1 Weakness; D50.0 Iron deficiency anemia secondary to blood loss (chronic); E78.5 Hyperlipidemia, unspecified; Z95.0 Presence of cardiac pacemaker; Z95.5 Presence of coronary angioplasty implant and graft; Z79.4 Long term (current) use of insulin; Z98.42 Cataract extraction status, left eye; Z98.41 Cataract extraction status, right eye; Z90.89 Acquired absence of other organs; Z79.01 Long term (current) use of anticoagulants; Z95.1 Presence of aortocoronary bypass graft; Z90.49 Acquired absence of other specified parts of digestive tract
CPT/HCPCS: 36415; 71250; 80053; 83605; 83880; 84484; 85025; 85610; 85730; 86140; 87040 ×2; 87205; 93005; 94640; 96365; 99285; J0696; U0002; 71045; 71045-26; 71046; 71046-26; 80048; 81003; 82272; 82947; 83540; 83735; 84145; 84466; 84550; 85027; 87070; 93010; 93306; 94668; 97110-GP; 97162-GP; 97530-GP; 99223; 99233; 99239; A9270-GY; J1815-GY; J1940; J7620-GY

== ENCOUNTER 2021-07-31 08:51 | Emergency (ER) | payer MEDICARE, BC ==
--- NOTE | 2021-07-31 09:10 | EDM.PDOC ---
ED HPI GENERAL MEDICAL PROBLEM - General Chief Complaint: ENT Problem Stated Complaint: NOSE BLEED Time Seen by Provider: 07/31/21 09:02 - History of Present Illness INITIAL COMMENTS - FREE TEXT/NARRATIVE: 85-year-old male presents the emergency room with a nosebleed. Patient does take Eliquis. He has had frequent nosebleeds in the past however it is been quite sometime since he has been back in the emergency room with what he said a few minor ones that he was able to stop on his own. This particular nosebleed started around 6 AM this morning. Seems to be much worse out of the right side. And he has noticed a draining down the back of his throat. - Related Data Allergies Allergy/AdvReac Type Severity Reaction Status Date / Time No Known Allergies Allergy Verified 03/03/21 12:34 Home Meds: Home Meds Apixaban [Eliquis] 5 mg PO BID 09/17/20 [History] Insulin Aspart [NovoLOG] 0 unit SQ ASDIRECTED PRN 09/17/20 [History] Simvastatin 40 mg PO BEDTIME 09/17/20 [History] Aspirin 81 mg PO Q48H 02/27/21 [History] Insulin Detemir [Levemir Flextouch] 25 units SQ DAILY 03/03/21 [History] Albuterol Sulfate [Albuterol Sulfate HFA] 8.5 gm INH Q4H PRN #1 ea 03/09/21 [Rx] Albuterol/Ipratropium [Combivent Respimat] 4 gm IH BID PRN #1 aer.w.adap 03/09/21 [Rx] Benzonatate [Tessalon Perle] 100 mg PO BID #30 capsule 03/09/21 [Rx] Cefdinir [Omnicef] 300 mg PO BID #6 cap 03/09/21 [Rx] Furosemide [Lasix] 40 mg PO DAILY #30 tab 03/09/21 [Rx] Spironolactone [Aldactone] 12.5 mg PO DAILY #30 tab 03/09/21 [Rx] carvediloL [Coreg] 12.5 mg PO BID #30 tablet 03/09/21 [Rx] Past Medical History HEENT History: Reports: Cataract Other HEENT History: wears eyeglasses, epistaxis. 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, Type I - Infectious Disease History Infectious Disease History: Reports: Measles, Mumps - Past Surgical History HEENT Surgical History: Reports: Cataract Surgery Cardiovascular Surgical History: Reports: Carotid Endarterectomy, Carotid Stents, Coronary Artery Bypass GI Surgical History: Reports: Appendectomy Social & Family History - Family History Family Medical History: No Pertinent Family History - Caffeine Use Caffeine Use: Reports: Coffee - Living Situation & Occupation Living situation: Reports: , with Spouse Occupation: Retired ED ROS ENT - Review of Systems Review Of Systems: See Below Constitutional: Reports: No Symptoms HEENT: Reports: Nosebleed Respiratory: Reports: No Symptoms Cardiovascular: Reports: No Symptoms GI/Abdominal: Reports: No Symptoms : Reports: No Symptoms Musculoskeletal: Reports: No Symptoms Skin: Reports: No Symptoms Neurological: Reports: No Symptoms ED EXAM, ENT - Physical Exam Exam: See Below Exam Limited By: No Limitations General Appearance: Alert, No Apparent Distress Eye Exam: Bilateral Eye: Normal Inspection Nose: Other (He has active bleeding down both nares right more so than left.) Head: Atraumatic, Normocephalic Neck: Normal Inspection, Supple, Non-Tender, Full Range of Motion. No: Lymphadenopathy (L), Lymphadenopathy (R) Cardiovascular: Regular Rate, Rhythm, No Edema, No Murmur ED ENT PROCEDURES - Epistaxis Procedure Indication: Uncontrolled Recent anticoagulants/antiplatlets: Yes Uncontrolled HTN: No Recent septal/nasal surgery: No Site of bleeding: Right Nare Clearing of clots: Patient Blew Nose Complications: No (Patient blew his nose and held direct pressure to his nose for 15 minutes after this the bleeding stopped we will watch him for a while and see how he does.) Course - Vital Signs Last Recorded V/S: Last Vital Signs Temp 36.1 C 07/31/21 09:00 Pulse 62 07/31/21 09:00 Resp 16 07/31/21 09:00 BP 152/62 H 07/31/21 09:00 Pulse Ox 97 07/31/21 09:00 - Orders/Labs/Meds Orders: Active Orders 24 hr Category Date Time Status Tranexamic Acid [Cyklokapron] 1,000 mg Med 07/31/21 12:15 Active Sodium Chloride 0.9% [Normal Saline] 100 ml IV ONETIME Medication Orders Tranexamic Acid 1,000 mg/ (Sodium Chloride) 110 mls @ 400 mls/hr IV ONETIME AIDA Labs: Laboratory Tests 07/31/21 07/31/21 07/31/21 Range/Units 10:03 10:03 10:03 WBC 7.39 (4.23-9.07) K/mm3 RBC 3.83 L (4.63-6.08) M/mm3 Hgb 11.2 L (13.7-17.5) gm/dl Hct 35.3 L (40.1-51.0) % MCV 92.2 (79.0-92.2) fl MCH 29.2 (25.7-32.2) pg MCHC 31.7 L (32.2-35.5) g/dl RDW Std Deviation 49.3 H (35.1-43.9) fL Plt Count 133 L (163-337) K/mm3 MPV 10.8 (9.4-12.3) fl Neut % (Auto) 70.3 H (34.0-67.9) % Lymph % (Auto) 13.7 L (21.8-53.1) % [place] % (Auto) 12.3 H (5.3-12.2) % Eos % (Auto) 3.1 (0.8-7.0) Baso % (Auto) 0.5 (0.1-1.2) % Neut # (Auto) 5.19 (1.78-5.38) K/mm3 Lymph # (Auto) 1.01 L (1.32-3.57) K/mm3 [place] # (Auto) 0.91 H (0.30-0.82) K/mm3 Eos # (Auto) 0.23 (0.04-0.54) K/mm3 Baso # (Auto) 0.04 (0.01-0.08) K/mm3 PT 12.3 H (9.7-12.0) SECONDS INR 1.11 APTT 32.8 H (21.7-31.4) SECONDS Sodium 141 (136-145) mEq/L Potassium 5.0 (3.5-5.1) mEq/L Chloride 105 (98-107) mEq/L Carbon Dioxide 30 (21-32) mEq/L Anion Gap 11.0 (5-15) BUN 37 H (7-18) mg/dL Creatinine 1.5 H (0.7-1.3) mg/dL Est Cr Clr Drug Dosing 40.96 mL/min Estimated GFR (MDRD) 45 (>60) mL/min BUN/Creatinine Ratio 24.7 H (14-18) Glucose 180 H (70-99) mg/dL POC Glucose (70-99) mg/dL Calcium 8.5 (8.5-10.1) mg/dL Total Bilirubin 0.9 (0.2-1.0) mg/dL AST 21 (15-37) U/L ALT 25 (16-63) U/L Alkaline Phosphatase 117 H (46-116) U/L Total Protein 7.6 (6.4-8.2) g/dl Albumin 3.4 (3.4-5.0) g/dl Globulin 4.2 gm/dL Albumin/Globulin Ratio 0.8 L (1-2) 07/31/21 Range/Units 11:14 WBC (4.23-9.07) K/mm3 RBC (4.63-6.08) M/mm3 Hgb (13.7-17.5) gm/dl Hct (40.1-51.0) % MCV (79.0-92.2) fl MCH (25.7-32.2) pg MCHC (32.2-35.5) g/dl RDW Std Deviation (35.1-43.9) fL Plt Count (163-337) K/mm3 MPV (9.4-12.3) fl Neut % (Auto) (34.0-67.9) % Lymph % (Auto) (21.8-53.1) % [place] % (Auto) (5.3-12.2) % Eos % (Auto) (0.8-7.0) Baso % (Auto) (0.1-1.2) % Neut # (Auto) (1.78-5.38) K/mm3 Lymph # (Auto) (1.32-3.57) K/mm3 [place] # (Auto) (0.30-0.82) K/mm3 Eos # (Auto) (0.04-0.54) K/mm3 Baso # (Auto) (0.01-0.08) K/mm3 PT (9.7-12.0) SECONDS INR APTT (21.7-31.4) SECONDS Sodium (136-145) mEq/L Potassium (3.5-5.1) mEq/L Chloride (98-107) mEq/L Carbon Dioxide (21-32) mEq/L Anion Gap (5-15) BUN (7-18) mg/dL Creatinine (0.7-1.3) mg/dL Est Cr Clr Drug Dosing mL/min Estimated GFR (MDRD) (>60) mL/min BUN/Creatinine Ratio (14-18) Glucose (70-99) mg/dL POC Glucose 159 H (70-99) mg/dL Calcium (8.5-10.1) mg/dL Total Bilirubin (0.2-1.0) mg/dL AST (15-37) U/L ALT (16-63) U/L Alkaline Phosphatase (46-116) U/L Total Protein (6.4-8.2) g/dl Albumin (3.4-5.0) g/dl Globulin gm/dL Albumin/Globulin Ratio (1-2) Meds: Medications Generic Name Dose Route Start Last Admin Trade Name Freq PRN Reason Stop Dose Admin Tranexamic Acid 1,000 mg/ 110 mls @ 400 mls/hr 07/31/21 12:15 Sodium Chloride IV ONETIME AIDA Discontinued Medications Generic Name Dose Route Start Last Admin Trade Name Freq PRN Reason Stop Dose Admin Lidocaine/Epinephrine 10 ml 07/31/21 12:05 07/31/21 12:35 Lidocaine 1% With Epinephrine 1:100,000 10 Ml Mdv INJECT 07/31/21 12:06 Not Given ONETIME ONE Lidocaine/Epinephrine Confirm 07/31/21 12:22 07/31/21 12:34 Lidocaine 1% With Epinephrine 1:100,000 20 Ml Mdv Administered 07/31/21 12:23 Not Given Dose 20 ml .ROUTE .STK-MED ONE Lidocaine/Epinephrine 20 ml 07/31/21 12:26 07/31/21 12:38 Lidocaine 1% With Epinephrine 1:100,000 20 Ml Mdv INJECT 07/31/21 12:27 20 ml ONETIME ONE Administration Oxymetazoline HCl 1 ml 07/31/21 12:04 07/31/21 12:37 Oxymetazoline 0.05% Nasal [place] 30 Ml Bottle EVA 07/31/21 12:05 1 spray ONETIME ONE Administration Tranexamic Acid Confirm 07/31/21 12:18 07/31/21 12:34 Tranexamic Acid 1,000 Mg/10 Ml Amp Administered 07/31/21 12:19 Not Given Dose 1,000 mg .ROUTE .STK-MED ONE - Re-Assessments/Exams Free Text/Narrative Re-Assessment/Exam: 07/31/21 11:44 Since the initial treatment the patient has not demonstrated any recurrence of his nosebleed. Blood pressure sneaking up a little bit but he has not taken his morning meds yet. At this point the patient like to go home we will discharge recommended using Preparation H to the external naris bilaterally several times daily especially with this dry air we are experiencing. He has multiple lab abnormalities but these are all in line where they usually have been he has a mild anemia renal insufficiency. 07/31/21 13:27 We attempted to discharge the patient he started having some mild bleeding again from the right naris. This was treated topically with TXA in an equal mixture with Afrin and lidocaine with epi. 2 cc of each as cotton balls were not available initially I used a tonsil sponge to soak this up placed in the naris kept in place for 20 minutes then removed the patient has not had any recurrent blood careful examination of the visualized portion of the nasal mucosa did not reveal a bleeding site. Patient understands no uncertain terms that this continues to be on he will require a packing. Departure - Departure Time of Disposition: 13:28 Disposition: Home, Self-Care 01 Clinical Impression: Epistaxis - Discharge Information Instructions: Nosebleed, Adult, [id number] Referrals: Bhanu Cheek MD [Primary Care Provider] - Forms: ED Department Discharge Additional Instructions: Return to the emergency room with any questions problems or worsening symptoms. 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 Gently roll the Q-tip around after applying Preparation H to the Q-tip. Sepsis Event Note (ED) - Focused Exam Vital Signs: Vital Signs Temp Pulse Resp BP Pulse Ox 07/31/21 09:00 36.1 C 62 16 152/62 H 97 - My Orders Last 24 Hours: My Active Orders 07/31/21 12:15 Tranexamic Acid [Cyklokapron] 1,000 mg Sodium Chloride 0.9% [Normal Saline] 100 ml IV ONETIME - Assessment/Plan Last 24 Hours: My Active Orders 07/31/21 12:15 Tranexamic Acid [Cyklokapron] 1,000 mg Sodium Chloride 0.9% [Normal Saline] 100 ml IV ONETIME
[2021-07-31] MEDS ORDERED: Oxymetazoline 0.05% Nasal Spray 30 ML Bottle NAS ONE (12:04)
[2021-07-31] MEDS ORDERED: Lidocaine 1% with EPINEPHrine 1:100,000 10 ML MDV INJECT ONE (12:05)
[2021-07-31] MEDS ORDERED: Tranexamic Acid 1,000 MG in Sodium Chloride 0.9% 100 ML IV SCH (12:15)
[2021-07-31] MEDS ORDERED: Lidocaine 1% with EPINEPHrine 1:100,000 20 ML MDV ONE (12:22)
[2021-07-31] MEDS ORDERED: Lidocaine 1% with EPINEPHrine 1:100,000 20 ML MDV INJECT ONE (12:26)
== END 2021-07-31 13:30 | disposition home or self-care (01) ==
LOC: JD.ED 08:51
DX: R04.0 Epistaxis (principal); I10 Essential (primary) hypertension; E78.00 Pure hypercholesterolemia, unspecified; J44.9 Chronic obstructive pulmonary disease, unspecified; I25.10 Atherosclerotic heart disease of native coronary artery without angina pectoris; E10.9 Type 1 diabetes mellitus without complications; Z79.899 Other long term (current) drug therapy
CPT/HCPCS: 30903; 36415; 80053; 82947; 85025; 85610; 85730; 99283; A9270

== ENCOUNTER 2022-07-08 03:47 | Emergency (ER) | payer MEDICARE, BC ==
[2022-07-08] MEDS ORDERED: Oxymetazoline 0.05% Nasal Spray 30 ML Bottle NAS ONE (04:11)
== END 2022-07-08 05:08 | disposition home or self-care (01) ==
LOC: JD.ED 03:47
DX: R04.0 Epistaxis (principal); I25.810 Atherosclerosis of coronary artery bypass graft(s) without angina pectoris; I10 Essential (primary) hypertension; J44.9 Chronic obstructive pulmonary disease, unspecified; M19.90 Unspecified osteoarthritis, unspecified site; E78.00 Pure hypercholesterolemia, unspecified; E10.9 Type 1 diabetes mellitus without complications; Z79.01 Long term (current) use of anticoagulants; Z79.4 Long term (current) use of insulin; Z79.82 Long term (current) use of aspirin; Z79.899 Other long term (current) drug therapy
CPT/HCPCS: 99283; A9270; 30901

== ENCOUNTER 2023-02-24 13:57 | Emergency (ER) | payer MEDICARE, BC ==
[2023-02-24] MEDS ORDERED: Aspirin 81 MG Tab.Chew PO ONE ×2 (14:08→14:24)
[2023-02-24] MEDS ORDERED: Sodium Chloride 0.9% 10 ML Syringe FLUSH PRN (14:08)
[2023-02-24] MEDS: Nitroglycerin 0.4 MG Tab.SL SL PRN ×2 (14:27→14:41)
[2023-02-24 14:29] LABS: BASOPHILS ABSOLUTE AUTO 0.04 K/mm3 (0.01-0.08); BASOPHILS PERCENT AUTO 0.4 % (0.1-1.2); EOSINOPHILS ABSOLUTE AUTO 0.23 K/mm3 (0.04-0.54); EOSINOPHILS PERCENT AUTO 2.6 (0.8-7.0); HEMATOCRIT 38.5 % (40.1-51.0); HEMOGLOBIN 12.5 gm/dl (13.7-17.5); IMMATURE GRAN ABSOLUTE AUTO 0.02 K/mm3 (0.00-0.10); IMMATURE GRAN PERCENT AUTO 0.2 % (<=1.0); LYMPHOCYTES PERCENT AUTO 14.6 % (21.8-53.1); MEAN CORPUSCULAR HEMOGLOBIN 29.7 pg (25.7-32.2); MEAN CORPUSCULAR HGB CONC 32.5 g/dl (32.2-35.5); MEAN CORPUSCULAR VOLUME 91.4 fl (79.0-92.2); MEAN PLATELET VOLUME 11.3 fl (9.4-12.3); MONOCYTES ABSOLUTE AUTO 0.93 K/mm3 (0.30-0.82); MONOCYTES PERCENT AUTO 10.4 % (5.3-12.2); NEUTROPHILS ABSOLUTE AUTO 6.39 K/mm3 (1.78-5.38); NEUTROPHILS PERCENT AUTO 71.8 % (34.0-67.9); PLATELET COUNT,PLT 118 K/mm3 (163-337); RED BLOOD CELL COUNT 4.21 M/mm3 (4.63-6.08); WHITE BLOOD CELL COUNT,WBC 8.91 K/mm3 (4.23-9.07)
[2023-02-24 14:34] LABS: INR 1.14; PROTHROMBIN TIME 12.1 SECONDS (9.7-12.0)
[2023-02-24 14:48] LABS: A/G RATIO 0.9 (1-2); ALBUMIN 3.8 g/dl (3.4-5.0); ANION GAP 10.6 (5-15); BILIRUBIN TOTAL 0.7 mg/dL (0.2-1.0); BUN/CREATININE RATIO 18.8 (14-18); CREATININE 1.6 mg/dL (0.7-1.3); EST CRCL DRUG DOSING (CG) 37.05 mL/min; MAGNESIUM 2.3 mg/dL (1.8-2.4); POTASSIUM,K 4.6 mEq/L (3.5-5.1); PROTEIN TOTAL,TP 8.2 g/dl (6.4-8.2)
[2023-02-24] MEDS ORDERED: Isosorbide Mononitrate 30 MG Tab.ER PO ONE (16:30)
== END 2023-02-24 17:02 | disposition home or self-care (01) ==
LOC: JD.ED 13:57
DX: I20.9 Angina pectoris, unspecified (principal); I10 Essential (primary) hypertension; I25.10 Atherosclerotic heart disease of native coronary artery without angina pectoris; E78.00 Pure hypercholesterolemia, unspecified; E10.9 Type 1 diabetes mellitus without complications; J44.9 Chronic obstructive pulmonary disease, unspecified; Z95.1 Presence of aortocoronary bypass graft; Z79.4 Long term (current) use of insulin; Z79.82 Long term (current) use of aspirin; Z79.899 Other long term (current) drug therapy
CPT/HCPCS: 36415; 71045; 80053; 83735; 83880; 84484; 85025; 85610; 93005; 99285; A9270; 93010; 99283

== ENCOUNTER 2024-02-08 11:21 | Emergency (ER) | payer MEDICARE, BC ==
[2024-02-08] MEDS: Sodium Chloride 0.9% 500 ML IV ONE (12:40)
[2024-02-08] MEDS: Sodium Chloride 0.9% 10 ML Syringe FLUSH PRN (12:40)
[2024-02-08 12:44] LABS: BASOPHILS PERCENT AUTO 0.6 % (0.0-1.0); EOSINOPHILS ABSOLUTE AUTO 0.1 K/mm3 (0.0-0.4); EOSINOPHILS PERCENT AUTO 1.3 % (0.0-6.0); HEMATOCRIT 28.7 % (42.0-52.0); IMMATURE GRAN ABSOLUTE AUTO 0.02 K/mm3 (0.00-0.05); IMMATURE GRAN PERCENT AUTO 0.3 % (0.0-0.4); LYMPHOCYTES ABSOLUTE AUTO 0.5 K/mm3 (1.0-4.8); LYMPHOCYTES PERCENT AUTO 8.2 % (24.0-44.0); MEAN CORPUSCULAR HEMOGLOBIN 28.6 pg (28.0-32.0); MEAN CORPUSCULAR HGB CONC 32.1 g/dl (32.0-36.0); MEAN CORPUSCULAR VOLUME 89.1 fl (83.0-99.0); MEAN PLATELET VOLUME 11.7 fl (9.4-12.4); MONOCYTES ABSOLUTE AUTO 0.9 K/mm3 (0.0-0.8); MONOCYTES PERCENT AUTO 13.7 % (0.0-8.0); NEUTROPHILS ABSOLUTE AUTO 4.8 K/mm3 (1.8-7.7); NEUTROPHILS PERCENT AUTO 75.9 % (41.0-71.0); PLATELET COUNT,PLT 89 K/mm3 (150-400); RED BLOOD CELL COUNT 3.22 M/mm3 (4.52-5.90); WHITE BLOOD CELL COUNT,WBC 6.34 K/mm3 (3.9-11.3)
[2024-02-08] MEDS: Piperacillin/Tazobactam 4.5 GM in Sodium Chloride 0.9% 100 ML IV ONE (12:46)
[2024-02-08 12:48] LABS: HEMOGLOBIN 9.2 gm/dl (14.0-18.0)
[2024-02-08 12:50] LABS: A/G RATIO 0.6 (1-2); ALBUMIN 2.5 g/dl (3.4-5.0); BUN/CREATININE RATIO 23.8 (14-18); CALCIUM 8.1 mg/dL (8.5-10.1); CREATININE 2.9 mg/dL (0.7-1.3); EST CRCL DRUG DOSING (CG) 20.07 mL/min
[2024-02-08] MEDS: VANCOmycin 2 GM/400 ML 2 GM in Premix Bag 1 BAG IV ONE (12:50)
[2024-02-08 13:01] LABS: SLIDE REVIEW ABNORMAL SMEAR
[2024-02-08 13:43] LABS: LACTIC ACID 0.9 mmol/L (0.4-2.0)
[2024-02-08 13:44] LABS: CORONAVIRUS COVID-19 NAA NEGATIVE (NEGATIVE); INFLUENZA A NAA NEGATIVE (NEGATIVE); RESPIRATORY SYNCYTIAL VIR NAA NEGATIVE (NEGATIVE)
[2024-02-08] MEDS: fentaNYL 100 MCG/2 ML SDV IVPUSH ONE (15:26)
[2024-02-08] MEDS: Albuterol 0.083% 2.5 MG/3 ML Neb Soln NEB ONE (16:45)
[2024-02-08] MEDS: Insulin Regular, Human 100 Units/ML 10 ML Vial SUBCUT ONE (16:49)
[2024-02-08] MEDS: Sodium Polystyrene Sulfonate 15 GM/60 ML Susp 60 ML Bot PO ONE (16:49)
[2024-02-08] MEDS: 50% Dextrose in Water 50 ML Syringe IVPUSH ONE (16:50)
[2024-02-08] MEDS: 50% Dextrose in Water 50 ML SDV IV ONE (16:50)
[2024-02-08] MEDS: Insulin Regular, Human 100 Units/ML 10 ML Vial IV ONE (16:55)
[2024-02-08] MEDS: Insulin Regular, Human 100 Units/ML 3 ML Vial IV ONE (16:55)
== END 2024-02-08 17:55 ==
LOC: JD.ED 11:21
DX: I11.0 Hypertensive heart disease with heart failure (principal); I50.9 Heart failure, unspecified; N17.9 Acute kidney failure, unspecified; L03.115 Cellulitis of right lower limb; L03.116 Cellulitis of left lower limb; E87.5 Hyperkalemia; I96 Gangrene, not elsewhere classified; E10.9 Type 1 diabetes mellitus without complications; I25.10 Atherosclerotic heart disease of native coronary artery without angina pectoris; J44.9 Chronic obstructive pulmonary disease, unspecified; Z90.49 Acquired absence of other specified parts of digestive tract; Z79.899 Other long term (current) drug therapy
CPT/HCPCS: 0241U; 36415; 71045; 73630; 80053; 82550; 82947; 83605; 83880; 85025; 87040; 94640; 96361; 96365; 96375; 99285; A9270; J1815; J2543; J3010; J3372; J3490; J7030; J7620-GY